=== PATIENT | female | born 1950 | race Caucasian/White ===

== ENCOUNTER 2016-12-10 19:55 | Inpatient (IN) | payer MEDICARE, MEDICAID ==
[~2016-12-10] VITALS: Ht 152.4 cm; Wt 50.0 kg
[~2016-12-10 19:55] MED LIST: ACET325T33 PO; ASC500 PO; ASPI81TA3 PO; BISA10SU58 PR; CHOL100062 PO; CRAN450T7 PO; DEXL60CA2 PO; DOCU-144 PO; DONE10TA7 PO; LEVE500S9 PO; MAGN400O4 PO; RTPRO HHN
[2016-12-10 20:00] VITALS: Ht 152.4 cm; Wt 50.0 kg
[2016-12-10] MEDS ORDERED: KETOROLAC 15 MG INJ IV STA (20:16)
[2016-12-10] MEDS ORDERED: LEVO200T45 PO (20:26)
[2016-12-10] MEDS ORDERED: LEVE750T70 PO (20:27)
[2016-12-10 20:38] LABS: BASOPHILS % 0.6 % (0.0-2.0); EOSINOPHILS # 0.5 10^3/ul (0.0-0.5); EOSINOPHILS % 6.3 % (0.0-7.0); HEMOGLOBIN 13.9 g/dl (12.0-16.0); LYMPHOCYTES # 2.2 10^3/ul (0.8-2.9); MEAN CORPUSCULAR HEMOGLOBIN 29.8 pg (29.0-33.0); MEAN CORPUSCULAR HGB CONC 33.1 g/dl (32.0-37.0); MEAN CORPUSCULAR VOLUME 89.9 fl (82.0-101.0); MEAN PLATELET VOLUME 7.6 fl (7.4-10.4); MONOCYTE # 0.5 10^3/ul (0.3-0.9); MONOCYTES % 6.4 % (0.0-11.0); NEUTROPHIL # 4.1 10^3/ul (1.6-7.5); NEUTROPHILS % 56.7 % (39.0-77.0); PLATELET COUNT 304 10^3/UL (140-440); RED BLOOD COUNT 4.67 10^6/ul (4.20-5.40); UNCORRECTED WBC 7.2 10^3/ul (4.8-10.8); WHITE BLOOD COUNT 7.2 10^3/ul (4.8-10.8)
[2016-12-10 20:40] LABS: ADD UMIC YES; URINE BILIRUBIN (Dip) NEGATIVE (NEGATIVE); URINE BLOOD (Dip) 1+ (NEGATIVE); URINE COLOR LT. YELLOW (YELLOW); URINE GLUCOSE (Dip) NEGATIVE (NEGATIVE); URINE KETONES (Dip) NEGATIVE (NEGATIVE); URINE LEUKOCYTE ESTERASE (Dip) 2+ (NEGATIVE); URINE NITRITE (Dip) NEGATIVE (NEGATIVE); URINE UROBILINOGEN (Dip) 0.2 E.U./dL (0.1-1.0)
[2016-12-10 20:42] LABS: URINE TOTAL PROTEIN (Dip) NEGATIVE (NEGATIVE)
[2016-12-10 20:44] LABS: CONDITION 1; LH ANALYZER COMMENTS 1
[2016-12-10 20:52] LABS: BACTERIA,URINE MANY; MUCUS,URINE FEW; SQUAMOUS EPITHELIAL CELL,UR MANY
[2016-12-10 20:54] LABS: ALBUMIN 4.4 g/dl (3.3-4.9)
[2016-12-10 20:55] LABS: POTASSIUM 4.6 mmol/L (3.5-5.1)
[2016-12-10 20:57] LABS: ALBUMIN/GLOBULIN RATIO 0.91; BILIRUBIN,INDIRECT 0.1 mg/dl (0-1.1); BILIRUBIN,TOTAL 0.1 mg/dl (0.2-1.3); CREATININE 2.37 mg/dl (0.44-1.00); TOTAL PROTEIN 9.2 g/dl (6.1-8.1)
[2016-12-10 20:58] LABS: CALCIUM 9.6 mg/dl (8.4-10.2)
--- NOTE | 2016-12-10 21:45 | RADRPT ---
PROCEDURE: CT Abdomen and Pelvis without contrast. CLINICAL INDICATION: Left lower quadrant abdominal pain, history of pancreatitis, gastroesophagea l reflux disease, appendectomy 20 years ago TECHNIQUE: CT scan of the abdomen and pelvis without contrast was performed on a multidetector hig h-resolution CT scanner. The patient was scanned without intravenous contrast. No oral contrast was administered. Coronal and sagittal reformatted images were obtained from the axial source images. Im ages were reviewed on a high-resolution PACS workstation. The total exam CTDI equals 7.72 mGy and t he total exam DLP equals 361.98 mGy-cm. One or more of the following dose reduction techniques were used: - Automated exposure control. - Adjustment of the mA and/or kV according to patient size. - Use of iterative reconstruction technique. COMPARISON: 07/11/2016 FINDINGS: Lungs: Mild dependent atelectasis is seen in the posterior lower lungs. Linear atelectasis/fibrosis is seen at the lung bases. Small pericardial effusion decreased compared to previous study. Mild c entrilobular emphysematous changes at lung bases. Multiple bilateral small nodular densities at maxx g bases approximately 4 appearing in the left lower lobe since previous study which could be inflamm atory the largest 3 mm with an approximate 3 mm nodular density in the right lower lung lobe stable compared to previous study. There is likely a mucous in mild cylindrical bronchiectasis in the righ t lower lobe medially again seen. Calcification in thoracic aorta Liver: No abnormality seen. Gallbladder: No gallbladder seen. Spleen: No abnormality seen. Stomach: Food material/debris, fluid and air in the stomach. Old gastrostomy tube tract again seen i n the anterior abdominal wall. Pancreas: No abnormality seen. Adrenals: No abnormality seen. Kidneys: Bilateral renal atrophy again seen. Bilateral nonobstructing renal calculi again seen the largest 5 mm in the mid to lower right kidney. Abdominal aorta: No aneurysm seen. Atherosclerotic calcification is seen. Calcification in proxima l right renal artery and bilateral iliac arteries. Lymph nodes: No enlarged lymph nodes are seen. Small bowel: No dilated small bowel loops are seen. Colon: Scattered colonic diverticula. There is no specific evidence of acute diverticulitis seen. Appendix: Status post appendectomy. Bladder: No abnormality seen Pelvic organs: No abnormality seen Ascites: None seen. Osseous structures: Lumbar spondylosis. Degenerative changes at sacroiliac joints and mild degener ative changes at hips. Levoscoliosis of lumbar spine. Small scattered likely bone islands again seen IMPRESSION: Multiple bilateral small nodular densities at lung bases approximately 4 appearing in the left lower lobe since previous study which could be inflammatory the largest 3 mm with an approximate 3 mm nod ular density in the right lower lung lobe stable compared to previous study. There is likely mucous in mild cylindrical bronchiectasis in the right lower lobe medially again seen. Bilateral renal atr ophy again seen. Bilateral nonobstructing renal calculi again seen the largest 5 mm in the mid to l ower right kidney. Atherosclerosis. Please see above. RPTAT: HJES .Shayne Ly MD, MD Date Time Electronically viewed and signed by .Shayne Ly MD, on 12/10/2016 21:45 .S/
[2016-12-10] MEDS ORDERED: CEFTRIAXONE 1 GM/50 ML (PMX) 50 ML IVPB ONE (22:00)
--- NOTE | 2016-12-10 22:00 | ERD ---
ER Documentation Chief Complaint Date/Time DATE: 12/10/16 TIME: 22:00 Chief Complaint LLQ AP SINCE 183 DENIES N/V DR. GALLO SENT FOR FURTHER EVAL HPI This is a 66-year-old female presents to the emergency room for evaluation of abdominal pain. This patient was sent in by her primary care physician, Dr. Mcginnis for further evaluation. This patient denies any fevers, she states that she is having pain and localizes to the left portion of her abdomen. The patient came to the ER today for evaluation. ROS All systems reviewed and are negative except as per history of present illness. Medications Home Meds Reported Medications Levetiracetam* (Keppra*) 750 Mg Tablet, 750 MG PO BID, TAB 12/10/16 Levothyroxine Sodium* (Levoxyl*) 200 Mcg Tablet, 300 MCG PO BEFORE BREAKFAST, # 30 TAB 12/10/16 Acetaminophen* (Tylenol*) 325 Mg Tablet, 650 MG PO Q4H Y for FOR MILD PAIN -, TAB 07/11/16 Acetaminophen* (Tylenol*) 325 Mg Tablet, 650 MG PO Q4H, TAB FOR TEMP>101F 07/11/16 Cholecalciferol* (Vitamin D3*) 1,000 Unit Tablet, 3000 UNIT PO DAILY, TAB 07/11/16 Ascorbic Acid (Vitamin C) 500 Mg Tab, 500 MG PO BID, TAB 07/11/16 Cranberry Fruit (CRANBERRY) 450 Mg Tablet, 900 MG PO DAILY, TAB 07/11/16 Bisacodyl* (Dulcolax*) 10 Mg/Supp.rect Supp.rect, [address] Q24H Y for CONSTIPATION, SUPP.RECT 04/28/16 Magnesium Hydroxide* (Milk Of Magnesia*) 400 Mg/5 Ml Oral.susp, 30 ML PO Q24H Y for CONSTIPATION, ML 04/28/16 Dexlansoprazole (Dexilant) 60 Mg Vasquez., 60 MG PO AC BREAKFAST, #30 CAP 04/28/16 Donepezil* (Donepezil*) 10 Mg Tablet, 10 MG PO DAILY, #30 TAB 04/28/16 Docusate Sodium* (Colace*) 100 Mg Capsule, 100 MG PO BID Y for CONSTIPATION, # 60 CAP 04/28/16 Aspirin* (Aspirin* Chew) 81 Mg Tab.chew, 81 MG PO DAILY, TAB.CHEW 04/28/16 Discontinued Reported Medications Levetiracetam* (Keppra*) 500 Mg/5 Ml Solution, 750 MG PO BID, BOTTLE 04/28/16 Albuterol Sulfate* (Proventil* Neb) 0.083% Neb, 2.5 MG HHN Q4H WHILE AWAKE Y for WHEEZING AND SOB, EA 10/22/15 Allergies Allergies: Coded Allergies: peanut (Verified Allergy, Unknown, 12/10/16) PMhx/Soc History of Surgery: Yes (cholecystectomy, lithotripsy, jj stent placement) Anesthesia Reaction: No Hx Neurological Disorder: Yes (Seizure, CVA) Hx Respiratory Disorders: No Hx Cardiac Disorders: No Hx Psychiatric Problems: Yes (Dementia) Hx Miscellaneous Medical Probl: Yes (seizure, pancreatitis, gerd, uti, pyelonephritis, dementia, anemia) Hx Alcohol Use: No Hx Substance Use: No Hx Tobacco Use: No Physical Exam Vitals Vital Signs Date Time Temp Pulse Resp B/P Pulse Ox O2 Delivery O2 Flow Rate FiO2 12/10/16 22:15 98.0 80 16 128/91 100 Room Air 12/10/16 20:00 98.1 66 18 129/59 98 Physical Exam INITIAL VITAL SIGNS: Reviewed by me GENERAL: The patient is well developed and appropriate for usual state of health in no apparent distress HEENT: Pupils equal, round, and reactive to light. EOMI. There is no scleral icterus. NECK: C-spine is soft and supple, there is no meningismus. There is no cervical lymphadenopathy. LUNGS: Clear to auscultation bilaterally. There are no rales, wheezes or rhonchi. HEART: Regular rate and rhythm, no murmurs, clicks, rubs or gallops. ABDOMEN: Suprapubic tenderness to palpation non-distended. There are bowel sounds in all four quadrants. No rebound or guarding. EXTREMITIES: There is no peripheral cyanosis or edema. No focal swelling or erythema. NEUROLOGICAL: The patient moves all four extremities with 5/5 strength. Cranial nerves II - XII are intact. Normal gait. Alert and oriented SKIN: There is no apparent rash or petechiae. HEME/LYMPHATIC: There is no evidence of excessive bruising or lymphedema. PSYCHIATRIC: The patient does not appear anxious or depressed. Result Diagram: 12/10/16201412/10/162014 Results 24 hrs Laboratory Tests Test 12/10/16 20:15 Alanine Aminotransferase (ALT/SGPT) 43IU/L Albumin 4.4g/dl Albumin/Globulin Ratio 0.91 Alkaline Phosphatase 139IU/L Anion Gap 20 Aspartate Amino Transf (AST/SGOT) 44IU/L Basophils # 0.010^3/ul Basophils % 0.6% Blood Morphology Comment Blood Urea Nitrogen 51mg/dl Calcium Level 9.6mg/dl Carbon Dioxide Level 25mmol/L Chloride Level 105mmol/L Creatinine 2.37mg/dl Direct Bilirubin 0.00mg/dl Eosinophils # 0.510^3/ul Eosinophils % 6.3% Globulin 4.80g/dl Glucose Level 77mg/dl Hematocrit 42.0% Hemoglobin 13.9g/dl Indirect Bilirubin 0.1mg/dl Lipase 236U/L Lymphocytes # 2.210^3/ul Lymphocytes % 30.0% Mean Corpuscular Hemoglobin 29.8pg Mean Corpuscular Hemoglobin Concent 33.1g/dl Mean Corpuscular Volume 89.9fl Mean Platelet Volume 7.6fl Monocytes # 0.510^3/ul Monocytes % 6.4% Neutrophils # 4.110^3/ul Neutrophils % 56.7% Nucleated Red Blood Cells # 0.010^3/ul Nucleated Red Blood Cells % 0.0/100WBC Platelet Count 65601^3/UL Potassium Level 4.6mmol/L Red Blood Count 4.6710^6/ul Red Cell Distribution Width 15.0% Sodium Level 145mmol/L Total Bilirubin 0.1mg/dl Total Protein 9.2g/dl Urine Bacteria MANY Urine Bilirubin NEGATIVE Urine Clarity CLEAR Urine Color LT. YELLOW Urine Glucose NEGATIVE% Urine Hemoglobin 1+ Urine Ketones NEGATIVE Urine Leukocyte Esterase 2+ Urine Microscopic RBC 5-10/HPF Urine Microscopic WBC >50/HPF Urine Mucus FEW Urine Nitrite NEGATIVE Urine Specific [place] 1.015 Urine Squamous Epithelial Cells MANY Urine Total Protein NEGATIVE Urine Urobilinogen 0.2 E.U./dL Urine pH 6.0 White Blood Count 7.210^3/ul Current Medications Medications (Trade) Dose Ordered Sig/[place] Route PRN Reason Start Time Stop Time Status Last Admin Dose Admin Ketorolac Tromethamine 15 mg 15 mg ONCE STAT IV 12/10/16 20:16 12/10/16 20:17 DC 12/10/16 20:45 Ceftriaxone Sodium (Rocephin) 50 ml @ 100 mls/hr ONCE ONCE IVPB 12/10/16 22:00 12/10/16 22:29 12/10/16 22:07 Procedures/MDM CT abdomen pelvis without: Multiple bilateral small nodular densities at lung bases approximately 4 appearing in the left lower lobe since previous study which could be inflammatory the largest 3 mm with an approximate 3 mm nodular density in the right lower lung lobe stable compared to previous study. There is likely mucous in mild cylindrical bronchiectasis in the right lower lobe medially again seen. Bilateral renal atrophy again seen. Bilateral nonobstructing renal calculi again seen the largest 5 mm in the mid to lower right kidney. Atherosclerosis. This 66-year-old female presents to the ER for evaluation of abdominal pain. She did have suprapubic tenderness to palpation on my examination, lab work was obtained including a urine and a CAT scan. Urinalysis does show urinary tract infection, CAT scan does not show any other acute intra-abdominal process. I spoke with this patient's primary care physician, Dr. Mcginnis who states that this patient should be admitted overnight for IV antibiotics and no further monitoring with a repeat lab work and urine in the morning. This patient is stable for MedSur at this time. This patient does have an elevated BUN compared to normal and could be suffering from mild dehydration. Patient was given IV normal saline Departure Diagnosis: Primary Impression: Acute cystitis Additional Impression: Mild dehydration Condition: Stable ARABELLA HNIES DO Dec 10, 2016 22:00
[2016-12-10] MEDS ORDERED: SOD CHLORIDE 0.9% 1,000 ML IV SCH (22:20)
[2016-12-10] MEDS ORDERED: ONDANSETRON 4 MG INJ IV PRN (22:30)
[2016-12-10] MEDS ORDERED: ACETAMINOPHEN 325 MG TAB PO PRN (22:30)
[2016-12-10 22:54] VITALS: TEMP 98.6
[2016-12-10 23:11] VITALS: BMI 21.5
[2016-12-10 23:12] VITALS: BP 158/91; PULSE 52; RESP 18
[2016-12-11] MEDS ORDERED: BISACODYL 10 MG SUPP PR PRN
[2016-12-11] MEDS ORDERED: DOCUSATE SODIUM 100 MG CAP PO PRN
[2016-12-11] MEDS ORDERED: ACETAMINOPHEN 325 MG TAB PO PRN
[2016-12-11] MEDS ORDERED: ACETAMINOPHEN 325 MG TAB PO SCH
[2016-12-11] MEDS ORDERED: MAGNESIUM HYDROXIDE 30ML CUP PO PRN
[2016-12-11] MEDS ORDERED: ONDANSETRON 4 MG INJ IV PRN
[2016-12-11] MEDS: SOD CHLORIDE 0.45% 1,000 ML IV SCH ×2 (00:54→18:20)
[2016-12-11 05:47] LABS: BASOPHILS % 0.7 % (0.0-2.0); EOSINOPHILS # 0.5 10^3/ul (0.0-0.5); HEMATOCRIT 37.4 % (37.0-47.0); HEMOGLOBIN 12.5 g/dl (12.0-16.0); LYMPHOCYTES # 1.8 10^3/ul (0.8-2.9); LYMPHOCYTES % 31.7 % (15.0-51.0); MEAN CORPUSCULAR HEMOGLOBIN 30.3 pg (29.0-33.0); MEAN CORPUSCULAR HGB CONC 33.4 g/dl (32.0-37.0); MEAN CORPUSCULAR VOLUME 90.7 fl (82.0-101.0); MEAN PLATELET VOLUME 7.9 fl (7.4-10.4); MONOCYTE # 0.5 10^3/ul (0.3-0.9); MONOCYTES % 8.1 % (0.0-11.0); NEUTROPHILS % 51.5 % (39.0-77.0); PLATELET COUNT 268 10^3/UL (140-440); RED BLOOD COUNT 4.13 10^6/ul (4.20-5.40); RED CELL DISTRIBUTION WIDTH 14.9 % (11.5-14.5); UNCORRECTED WBC 5.8 10^3/ul (4.8-10.8); WHITE BLOOD COUNT 5.8 10^3/ul (4.8-10.8)
[2016-12-11 05:56] LABS: POTASSIUM 4.9 mmol/L (3.5-5.1)
[2016-12-11 05:58] LABS: CREATININE 2.34 mg/dl (0.44-1.00)
[2016-12-11 05:59] LABS: CALCIUM 8.9 mg/dl (8.4-10.2)
[2016-12-11 06:23] LABS: CONDITION 1; LH ANALYZER COMMENTS 1
[2016-12-11] MEDS: PANTOPRAZOLE (EC) 40 MG TAB PO SCH (06:25)
[2016-12-11] MEDS: LEVOTHYROXINE 100 MCG TAB PO SCH (06:25)
[2016-12-11 07:22] VITALS: BP 115/69; RESP 18
[2016-12-11] MEDS: IMIPENEM-CILAST 250MG IV (PMX) 100 ML IVPB SCH ×2 (08:46→20:55)
[2016-12-11] MEDS: CHOLECALCIFEROL 1,000 UNIT TAB PO SCH (08:47)
[2016-12-11] MEDS: ASPIRIN 81 MG TAB PO SCH (08:47)
[2016-12-11] MEDS: LEVETIRACETAM 750 MG TAB PO SCH ×2 (08:47→22:26)
[2016-12-11] MEDS: DONEPEZIL 10 MG TAB PO SCH (08:47)
[2016-12-11] MEDS: ASCORBIC ACID 500 MG TAB PO SCH ×2 (08:47→20:55)
[2016-12-11] MEDS: ENOXAPARIN 30 MG/0.3 ML SYG SC SCH (08:48)
[2016-12-11] MEDS ORDERED: DONEPEZIL 10 MG TAB PO SCH (09:00)
[2016-12-11] MEDS ORDERED: CRANBERRY FRUIT 900 MG PO SCH (09:00)
--- NOTE | 2016-12-11 13:58 | HP ---
DATE OF ADMISSION: 12/10/2016 HISTORY OF PRESENT ILLNESS: The patient is a 66-year-old female known to me from previous admission . The patient with history of cerebrovascular accident, seizure disorder, and history of right reg l calculi, chronic kidney disease, and memory impairment. The patient also with history of G-tube a nd removal of G-tube. The patient was able to tolerate diet well and was recuperating at [facility]. The patient presented to the emergency room for evaluation of abdominal pain in the left lower quadrant that she developed a day ago. On evaluation in the emergency room, a urinalysi s was positive for leukocyte esterase and many bacteria. The patient also underwent a CT of abdomen and pelvis which revealed bilateral renal atrophy and bilateral nonobstructing renal calculi, and t he largest 5 mm in the mid to lower right kidney. The patient was also noted to have elevated BUN a nd creatinine, and the patient was admitted for IV fluids and antibiotics and further management to medical/surgical floor. PAST MEDICAL HISTORY: Per HPI. PAST SURGICAL HISTORY: Status post cholecystectomy, status post lithotripsy and JJ stent placement and subsequent removal of JJ stent, status post G-tube placement and subsequent removal. FAMILY HISTORY: Noncontributory. SOCIAL HISTORY: The patient is a resident of [facility]. 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 ALLERGIES: THE PATIENT IS ALLERGIC TO PEANUTS. MEDICATIONS ON ADMISSION: 1. Tylenol. 2. Vitamin C. 3. Aspirin. 4. Dulcolax. 5. Vitamin D3. 6. Cranberry extract. 7. Dexilant. 8. Colace. 9. Donepezil. 10. Keppra. 11. Levothyroxine. 12. Magnesium. REVIEW OF SYSTEMS: A 12-point review of systems is negative unless what is mentioned in the HPI. PHYSICAL ASSESSMENT: GENERAL: Well-developed, well-nourished female currently is awake, alert. VITAL SIGNS: Temperature is 97.9, pulse is 60, blood pressure 115/69, respiratory rate 18, oxygen s aturation is 98% on room air. HEENT: Head is atraumatic, normocephalic. Pupils equal, round, reactive to light and accommodation . Oral mucosa is pink and moist. NECK: Supple. No cervical lymphadenopathy, no thyromegaly. CHEST: Lungs clear bilaterally. There is no rhonchi, wheezes, or rales noted. CARDIOVASCULAR: Normal S1, S2. No murmurs, gallops, clicks, rubs noted. ABDOMEN: Round, soft, nondistended, nontender. The patient has left lower quadrant mild tenderness . EXTREMITIES: No edema, clubbing, cyanosis. Pulses equal bilaterally 2+. SKIN: There is no rash, petechiae noted. NEUROLOGIC: The patient is awake, alert and oriented to name and situation. Moves all extremities. No focal deficits noted. LABORATORY DATA: On admission, CBC: White blood cell 7.2, hemoglobin 13.9, hematocrit 42.0, platel ets 304. Chemistry: Sodium is 145, potassium 4.6, chloride 105, carbon dioxide 25, anion gap 20, B UN is 51, creatinine 2.37, glucose 77, calcium 9.6. ASSESSMENT AND PLAN: 1. Urinary tract infection per urinalysis. Will order urine culture. Continue patient on Primaxin . 2. Dehydration. Continue IV fluids. Monitor electrolytes. 3. Acute kidney injury secondary to dehydration on top of chronic kidney disease. Continue to rosario tor BUN and creatinine. 4. Dementia. Continue Aricept. 5. Hypothyroidism. We will check TSH. Continue Synthroid. 6. History of seizure disorder. Continue Keppra. 7. History of cerebrovascular accident. Continue patient on aspirin. Will continue Lovenox for de ep venous thrombosis prophylaxis and Protonix for peptic ulcer disease prophylaxis. Further recommendations based on clinical course. Plan of care discussed with Dr. Mcginnis. Dictated By: NEFTALI KEN FINGER WAVER for HEIKE MCGINNIS MD SR/NTS Conf#: [id number] DID#: [id number]
[2016-12-11 20:00] VITALS: BP 119/69; RESP 20
[2016-12-12 05:54] LABS: BASOPHIL # 0.1 10^3/ul (0.0-0.1); BASOPHILS % 0.9 % (0.0-2.0); EOSINOPHILS # 0.4 10^3/ul (0.0-0.5); EOSINOPHILS % 6.2 % (0.0-7.0); HEMATOCRIT 34.8 % (37.0-47.0); HEMOGLOBIN 11.6 g/dl (12.0-16.0); LYMPHOCYTES # 1.5 10^3/ul (0.8-2.9); LYMPHOCYTES % 23.8 % (15.0-51.0); MEAN CORPUSCULAR HEMOGLOBIN 30.1 pg (29.0-33.0); MEAN CORPUSCULAR HGB CONC 33.4 g/dl (32.0-37.0); MEAN CORPUSCULAR VOLUME 90.2 fl (82.0-101.0); MEAN PLATELET VOLUME 7.8 fl (7.4-10.4); MONOCYTE # 0.5 10^3/ul (0.3-0.9); MONOCYTES % 7.5 % (0.0-11.0); NEUTROPHIL # 3.8 10^3/ul (1.6-7.5); NEUTROPHILS % 61.6 % (39.0-77.0); PLATELET COUNT 267 10^3/UL (140-440); RED BLOOD COUNT 3.85 10^6/ul (4.20-5.40); RED CELL DISTRIBUTION WIDTH 14.9 % (11.5-14.5); UNCORRECTED WBC 6.2 10^3/ul (4.8-10.8); WHITE BLOOD COUNT 6.2 10^3/ul (4.8-10.8)
[2016-12-12 05:57] LABS: CONDITION 1; LH ANALYZER COMMENTS 1
[2016-12-12 06:06] LABS: POTASSIUM 4.6 mmol/L (3.5-5.1)
[2016-12-12 06:08] LABS: CREATININE 2.3 mg/dl (0.44-1.00)
[2016-12-12 06:09] LABS: CALCIUM 8.2 mg/dl (8.4-10.2)
[2016-12-12] MEDS: LEVOTHYROXINE 100 MCG TAB PO SCH (06:18)
[2016-12-12] MEDS: PANTOPRAZOLE (EC) 40 MG TAB PO SCH (06:18)
[2016-12-12 07:45] VITALS: BP 97/58; RESP 18
[2016-12-12] MEDS: DONEPEZIL 10 MG TAB PO SCH (08:35)
[2016-12-12] MEDS: IMIPENEM-CILAST 250MG IV (PMX) 100 ML IVPB SCH ×2 (08:35→20:45)
[2016-12-12] MEDS: CHOLECALCIFEROL 1,000 UNIT TAB PO SCH (08:35)
[2016-12-12] MEDS: ASPIRIN 81 MG TAB PO SCH (08:36)
[2016-12-12] MEDS: ASCORBIC ACID 500 MG TAB PO SCH ×2 (08:36→20:46)
[2016-12-12] MEDS: LEVETIRACETAM 750 MG TAB PO SCH ×2 (08:36→20:46)
[2016-12-12] MEDS: ENOXAPARIN 30 MG/0.3 ML SYG SC SCH (08:43)
[2016-12-12] MEDS: SOD CHLORIDE 0.45% 1,000 ML IV SCH (12:12)
--- NOTE | 2016-12-12 13:22 | PN ---
Date/Time of Note Date/Time of Note DATE: 12/12/16 TIME: 13:18 Assessment/Plan VTE Prophylaxis VTE Prophylaxis Intervention: SCD's Lines/Catheters IV [facility] Peripheral IV Urinary Cath still in place: No Assessment/Plan Chief Complaint/Hosp Course ASSESSMENT AND PLAN: 1. Urinary tract infection per urinalysis. F/up on urine culture. Continue patient on Primaxin. 2. Dehydration. Continue IV fluids. Monitor electrolytes. 3. Acute kidney injury secondary to dehydration on top of chronic kidney disease. Continue to monitor BUN and creatinine. Dr Marcum in nephrology consult. 4. Dementia. Continue Aricept. 5. Hypothyroidism. Continue Synthroid. 6. History of seizure disorder. Continue Keppra. 7. History of cerebrovascular accident. Continue patient on aspirin. Continue Lovenox for deep venous thrombosis prophylaxis and Protonix for peptic ulcer disease prophylaxis. Further recommendations based on clinical course. Plan of care discussed with Dr. Mcginnis. Problems: Subjective 24 Hr Interval Summary Free Text/Dictation Patient looks comfortable, no acute events. Exam/Review of Systems Vital Signs Vitals Vital Signs Date Time Temp Pulse Resp B/P Pulse Ox O2 Delivery O2 Flow Rate FiO2 12/12/16 07:45 97.7 74 18 97/58 95 12/10/16 23:12 Room Air Intake and Output 12/11/16 12/11/16 12/12/16 15:00 23:00 07:00 Intake Total 100 ml 1900 ml 850 ml Output Total 600 ml 500 ml Balance 100 ml 1300 ml 350 ml Exam GENERAL: Well-developed, well-nourished female currently is awake, alert. HEENT: Head is atraumatic, normocephalic. NECK: Supple. No cervical lymphadenopathy, no thyromegaly. CHEST: Lungs clear bilaterally. There is no rhonchi, wheezes, or rales noted. CARDIOVASCULAR: Normal S1, S2. No murmurs, gallops, clicks, rubs noted. ABDOMEN: Round, soft, nondistended, nontender. EXTREMITIES: No edema, clubbing, cyanosis. Pulses equal bilaterally 2+. SKIN: There is no rash, petechiae noted. NEUROLOGIC: The patient is awake, alert and oriented to name and situation. Results Result Diagram: 12/12/1651712/12/16517 Results 24 hrs Laboratory Tests Test 12/12/16 05:18 Anion Gap 17 H Basophils # 0.1 Basophils % 0.9 Blood Morphology Comment Blood Urea Nitrogen 45 H Calcium Level 8.2 L Carbon Dioxide Level 20 L Chloride Level 110 Creatinine 2.30 H Eosinophils # 0.4 Eosinophils % 6.2 Glucose Level 83 Hematocrit 34.8 L Hemoglobin 11.6 L Lymphocytes # 1.5 Lymphocytes % 23.8 Mean Corpuscular Hemoglobin 30.1 Mean Corpuscular Hemoglobin Concent 33.4 Mean Corpuscular Volume 90.2 Mean Platelet Volume 7.8 Monocytes # 0.5 Monocytes % 7.5 Neutrophils # 3.8 Neutrophils % 61.6 Nucleated Red Blood Cells # 0.0 Nucleated Red Blood Cells % 0.0 Platelet Count 267 Potassium Level 4.6 Red Blood Count 3.85 L Red Cell Distribution Width 14.9 H Sodium Level 142 White Blood Count 6.2 Medications Medications Current Medications Sodium Chloride (1/2 NS) 1,000 ml @ 60 mls/hr [id number] IV Last administered on 12/12/16 12:12; Admin Dose 60 MLS/HR; Start 12/11/16 at 00:00 Miscellaneous Information (* Miscellaneous Pharmacy Order) PRIMAXIN PER PHARMACY ONCE XX ; Start 12/11/16 at 00:00 Enoxaparin Sodium (Lovenox) 30 mg DAILY SC Last administered on 12/12/16 08:43 ; Admin Dose 30 MG; Start 12/11/16 at 09:00 Morphine Sulfate (morphine) 2 mg Q2H PRN IV PAIN; Start 12/11/16 at 00:00 Ondansetron HCl (Zofran Inj) 4 mg Q6H PRN IV NAUSEA AND/OR VOMITING; Start 09/17 at 00:00 Acetaminophen (Tylenol Tab) 650 mg Q4H PRN PO FOR MILD PAIN -03/11; Start 12/11 at 00:00 Ascorbic Acid (Vitamin C) 500 mg BID PO Last administered on 12/12/16 08:36; Admin Dose 500 MG; Start 12/11/16 at 09:00 Aspirin (Aspirin) 81 mg DAILY PO Last administered on 12/12/16 08:36; Admin Dose 81 MG; Start 12/11/16 at 09:00 Bisacodyl (Dulcolax Supp) 10 mg Q24H PRN [place] CONSTIPATION; Start 12/11/16 at 00: 00 Cholecalciferol (Vitamin D) 3,000 unit DAILY PO Last administered on 12/12/16 08:35; Admin Dose 3,000 UNIT; Start 12/11/16 at 09:00 Docusate Sodium (Colace) 100 mg BID PRN PO CONSTIPATION; Start 12/11/16 at 00: 00 Levetiracetam (Keppra) 750 mg BID PO Last administered on 12/12/16 08:36; Admin Dose 750 MG; Start 12/11/16 at 09:00 Magnesium Hydroxide (Milk Of Mag) 30 ml Q24H PRN PO CONSTIPATION; Start at 00:00 Pantoprazole 40 mg 40 mg DAILY@06 PO Last administered on 12/12/16 06:18; Admin Dose 40 MG; Start 12/11/16 at 06:00 Imipenem/ Cilastatin Sodium (Primaxin 250 Mg/ 100 ml (Pmx)) 100 ml @ 100 mls/ hr Q12 IVPB Last administered on 12/12/16 08:35; Admin Dose 100 MLS/HR; Start 12/11/16 at 09:00 Donepezil HCl (Aricept) 10 mg DAILY PO Last administered on 12/12/16 08:35; Admin Dose 10 MG; Start 12/11/16 at 09:00 NEFTALI KEN Dec 12, 2016 13:21
--- NOTE | 2016-12-12 17:36 | CONS ---
Date/Time of Note Date/Time of Note DATE: 12/12/16 TIME: 17:34 Assessment/Plan Assessment/Plan Additional Assessment/Plan 66 yo female with 1. Recurrent Urinary tract infection 2. Dehydration 3. Acute kidney injury 2nd to above, baseline CKD stage IV 4. Dementia. 5. Hypothyroidism. 6. History of seizure disorder. 7. History of cerebrovascular accident. 8. B/L Non obstructing Renal Calculi Overall since admission renal function is stable and mildly improved with IVFs Pt is non oliguric and electolytes are ok Cont gentle IVFs as needed. Cont IV Abx, awaiting urine culture Renal dose to CKD stage IV, eGFR<30 Avoid nephrotoxic Rx if possible Keep MAPs>65mmHg Will cont to follow UO, electrolytes and renal function daily. Thank you for the opportunity to participate in the care of Ms Nation. Consultation Date/Type/Reason Admit Date/Time Dec 10, 2016 at 22:20 Date of Consultation: Dec 12, 2016 Type of Consultation: Nephrology Reason for Consultation Martha, CKD Referring Provider: NEFTALI KEN Hx of Present Illness 66 year old female with history of cerebrovascular accident, seizure disorder, and history of right renal calculi, chronic kidney disease, and memory impairment who presented to the emergency room for evaluation of abdominal pain in the left lower quadrant that she developed a day ago. In the ER found to have abnormal UA, possible UTI and CT of abdomen and pelvis which showed bilateral renal atrophy and bilateral nonobstructing renal calculi, and the largest 5 mm in the mid to lower right kidney. The patient was also noted to have elevated BUN and creatinine from baseline and admitted to [facility]. Nephrology consulted for MARTHA on CKD. unable to obtain due to patient condition Constitutional: No requiring O2 Past Medical History Medical History: other (as per HPI) Past Surgical History PAST SURGICAL HISTORY: Status post cholecystectomy, status post lithotripsy and JJ stent placement and subsequent removal of JJ stent, status post G-tube placement and subsequent removal. Family History Significant Family History: no pertinent family hx Social History resides in [facility] Alcohol Use: none Smoking Status: Current some day smoker Drug Use: none Exam/Review of Systems Vital Signs Vitals Vital Signs Date Time Temp Pulse Resp B/P Pulse Ox O2 Delivery O2 Flow Rate FiO2 12/12/16 07:45 97.7 74 18 97/58 95 12/10/16 23:12 Room Air Intake and Output 12/11/16 12/11/16 12/12/16 15:00 23:00 07:00 Intake Total 100 ml 1900 ml 850 ml Output Total 600 ml 500 ml Balance 100 ml 1300 ml 350 ml Exam Constitutional: alert, No distress Psych: No anxiety Head: atraumatic Eyes: EOMI ENMT: mucosa pink and moist Neck: No jvd Respiratory: clear to auscultation, No labored breathing Cardiovascular: regular rate and rhythm, No edema Neurological: lethargic Skin: No diaphoresis Results Result Diagram: 12/12/16 0518 12/12/16 0518 Results 24 hrs Laboratory Tests Test 12/12/16 05:18 12/12/16 15:00 Anion Gap 17 H Basophils # 0.1 Basophils % 0.9 Blood Morphology Comment Blood Urea Nitrogen 45 H Calcium Level 8.2 L Carbon Dioxide Level 20 L Chloride Level 110 Creatinine 2.30 H Eosinophils # 0.4 Eosinophils % 6.2 Glucose Level 83 Hematocrit 34.8 L Hemoglobin 11.6 L Lymphocytes # 1.5 Lymphocytes % 23.8 Mean Corpuscular Hemoglobin 30.1 Mean Corpuscular Hemoglobin Concent 33.4 Mean Corpuscular Volume 90.2 Mean Platelet Volume 7.8 Monocytes # 0.5 Monocytes % 7.5 Neutrophils # 3.8 Neutrophils % 61.6 Nucleated Red Blood Cells # 0.0 Nucleated Red Blood Cells % 0.0 Platelet Count 267 Potassium Level 4.6 Red Blood Count 3.85 L Red Cell Distribution Width 14.9 H Sodium Level 142 White Blood Count 6.2 Urine Random Creatinine 31.30 Urine Random Sodium 98 H Medications Medications Current Medications Sodium Chloride (1/2 NS) 1,000 ml @ 60 mls/hr [id number] IV Last administered on 12/12/16 12:12; Admin Dose 60 MLS/HR; Start 12/11/16 at 00:00 Miscellaneous Information (* Miscellaneous Pharmacy Order) PRIMAXIN PER PHARMACY ONCE XX ; Start 12/11/16 at 00:00 Enoxaparin Sodium (Lovenox) 30 mg DAILY SC Last administered on 12/12/16 08:43 ; Admin Dose 30 MG; Start 12/11/16 at 09:00 Morphine Sulfate (morphine) 2 mg Q2H PRN IV PAIN; Start 12/11/16 at 00:00 Ondansetron HCl (Zofran Inj) 4 mg Q6H PRN IV NAUSEA AND/OR VOMITING; Start 09/17 at 00:00 Acetaminophen (Tylenol Tab) 650 mg Q4H PRN PO FOR MILD PAIN -03/11; Start 12/11 at 00:00 Ascorbic Acid (Vitamin C) 500 mg BID PO Last administered on 12/12/16 08:36; Admin Dose 500 MG; Start 12/11/16 at 09:00 Aspirin (Aspirin) 81 mg DAILY PO Last administered on 12/12/16 08:36; Admin Dose 81 MG; Start 12/11/16 at 09:00 Bisacodyl (Dulcolax Supp) 10 mg Q24H PRN [place] CONSTIPATION; Start 12/11/16 at 00: 00 Cholecalciferol (Vitamin D) 3,000 unit DAILY PO Last administered on 12/12/16 08:35; Admin Dose 3,000 UNIT; Start 12/11/16 at 09:00 Docusate Sodium (Colace) 100 mg BID PRN PO CONSTIPATION; Start 12/11/16 at 00: 00 Levetiracetam (Keppra) 750 mg BID PO Last administered on 12/12/16 08:36; Admin Dose 750 MG; Start 12/11/16 at 09:00 Magnesium Hydroxide (Milk Of Mag) 30 ml Q24H PRN PO CONSTIPATION; Start at 00:00 Pantoprazole 40 mg 40 mg DAILY@06 PO Last administered on 12/12/16 06:18; Admin Dose 40 MG; Start 12/11/16 at 06:00 Imipenem/ Cilastatin Sodium (Primaxin 250 Mg/ 100 ml (Pmx)) 100 ml @ 100 mls/ hr Q12 IVPB Last administered on 12/12/16 08:35; Admin Dose 100 MLS/HR; Start 12/11/16 at 09:00 Donepezil HCl (Aricept) 10 mg DAILY PO Last administered on 12/12/16 08:35; Admin Dose 10 MG; Start 12/11/16 at 09:[address] Abdomen IMPRESSION: Multiple bilateral small nodular densities at lung bases approximately 4 appearing in the left lower lobe since previous study which could be inflammatory the largest 3 mm with an approximate 3 mm nodular density in the right lower lung lobe stable compared to previous study. There is likely mucous in mild cylindrical bronchiectasis in the right lower lobe medially again seen. Bilateral renal atrophy again seen. Bilateral nonobstructing renal calculi again seen the largest 5 mm in the mid to lower right kidney. Atherosclerosis. Please see above. RPTAT: HJES .Shayne Ly MD, MD Date Time Electronically viewed and signed by .Shayne Ly MD, MD on 12/10/2016 21:45 NANI COLEMAN MD Dec 12, 2016 17:36
[2016-12-13] MEDS: SOD CHLORIDE 0.45% 1,000 ML IV SCH ×3 (02:00→18:40)
[2016-12-13] MEDS: PANTOPRAZOLE (EC) 40 MG TAB PO SCH (06:15)
[2016-12-13 06:58] LABS: POTASSIUM 4.7 mmol/L (3.5-5.1)
[2016-12-13 07:01] LABS: CREATININE 2.2 mg/dl (0.44-1.00)
[2016-12-13 07:02] LABS: CALCIUM 8.4 mg/dl (8.4-10.2)
[2016-12-13 08:05] VITALS: BP 125/69; RESP 16
[2016-12-13] MEDS: DONEPEZIL 10 MG TAB PO SCH (08:37)
[2016-12-13] MEDS: ASCORBIC ACID 500 MG TAB PO SCH ×2 (08:37→21:16)
[2016-12-13] MEDS: LEVOTHYROXINE 100 MCG TAB PO SCH (08:37)
[2016-12-13] MEDS: ASPIRIN 81 MG TAB PO SCH (08:37)
[2016-12-13] MEDS: LEVETIRACETAM 750 MG TAB PO SCH ×2 (08:37→21:16)
[2016-12-13] MEDS: IMIPENEM-CILAST 250MG IV (PMX) 100 ML IVPB SCH ×2 (08:37→21:16)
[2016-12-13] MEDS: CHOLECALCIFEROL 1,000 UNIT TAB PO SCH (08:38)
[2016-12-13] MEDS: ENOXAPARIN 30 MG/0.3 ML SYG SC SCH (08:40)
[2016-12-13 19:00] VITALS: BP 124/59; RESP 18
--- NOTE | 2016-12-13 20:59 | CONS ---
Date/Time of Note Date/Time of Note DATE: 12/13/16 TIME: 20:52 Assessment/Plan Assessment/Plan Problems: (1) Ureteral stone with hydronephrosis Status: Chronic (2) Anemia Status: Chronic (3) Anemia associated with chronic renal failure Status: Chronic (4) Pyelonephritis Status: Acute Comment: Recurrent (5) ARF (acute renal failure) Status: Acute Comment: Pre-renal component has improved (6) CKD (chronic kidney disease) Status: Chronic Comment: Basic CKD remains Consultation Date/Type/Reason Admit Date/Time Dec 10, 2016 at 22:20 Initial Consult Date 12/12/16 Type of Consultation: Nephrology Referring Provider: NEFTALI KEN 24 HR Interval Summary Constitutional: no complaints Exam/Review of Systems Vital Signs Vitals Vital Signs Date Time Temp Pulse Resp B/P Pulse Ox O2 Delivery O2 Flow Rate FiO2 12/13/16 19:00 97.4 73 18 124/59 98 12/10/16 23:12 Room Air Intake and Output 12/12/16 12/12/16 12/13/16 15:00 23:00 07:00 Intake Total 450 ml 880 ml 700 ml Output Total 500 ml Balance 450 ml 380 ml 700 ml Exam Constitutional: alert, oriented Psych: no complaints Eyes: PERRL, nl conjunctiva Neck: supple Respiratory: clear to auscultation Cardiovascular: regular rate and rhythm Gastrointestinal: soft Musculoskeletal: nl extremities to inspection Extremities: normal pulses Neurological: CLIENT EXECUTIVE II-XII intact Results Result Diagram: 12/12/16 0518 12/13/16 0535 Results 24 hrs Laboratory Tests Test 12/13/16 05:35 Anion Gap 16 Blood Urea Nitrogen 41 H Calcium Level 8.4 Carbon Dioxide Level 21 Chloride Level 112 H Creatinine 2.20 H Glucose Level 69 #L Potassium Level 4.7 Sodium Level 144 Medications Medications Current Medications Sodium Chloride (1/2 NS) 1,000 ml @ 60 mls/hr [id number] IV Last administered on 12/13/16 06:18; Admin Dose 60 MLS/HR; Start 12/11/16 at 00:00 Miscellaneous Information (* Miscellaneous Pharmacy Order) PRIMAXIN PER PHARMACY ONCE XX ; Start 12/11/16 at 00:00 Enoxaparin Sodium (Lovenox) 30 mg DAILY SC Last administered on 12/13/16 08:40 ; Admin Dose 30 MG; Start 12/11/16 at 09:00 Morphine Sulfate (morphine) 2 mg Q2H PRN IV PAIN; Start 12/11/16 at 00:00 Ondansetron HCl (Zofran Inj) 4 mg Q6H PRN IV NAUSEA AND/OR VOMITING Last administered on 12/13/16 10:22; Admin Dose 4 MG; Start 12/11/16 at 00:00 Acetaminophen (Tylenol Tab) 650 mg Q4H PRN PO FOR MILD PAIN -03/11; Start 12/11 at 00:00 Ascorbic Acid (Vitamin C) 500 mg BID PO Last administered on 12/13/16 08:37; Admin Dose 500 MG; Start 12/11/16 at 09:00 Aspirin (Aspirin) 81 mg DAILY PO Last administered on 12/13/16 08:37; Admin Dose 81 MG; Start 12/11/16 at 09:00 Bisacodyl (Dulcolax Supp) 10 mg Q24H PRN [place] CONSTIPATION; Start 12/11/16 at 00: 00 Cholecalciferol (Vitamin D) 3,000 unit DAILY PO Last administered on 12/13/16 08:38; Admin Dose 3,000 UNIT; Start 12/11/16 at 09:00 Docusate Sodium (Colace) 100 mg BID PRN PO CONSTIPATION; Start 12/11/16 at 00: 00 Levetiracetam (Keppra) 750 mg BID PO Last administered on 12/13/16 08:37; Admin Dose 750 MG; Start 12/11/16 at 09:00 Magnesium Hydroxide (Milk Of Mag) 30 ml Q24H PRN PO CONSTIPATION; Start at 00:00 Pantoprazole 40 mg 40 mg DAILY@06 PO Last administered on 12/13/16 06:15; Admin Dose 40 MG; Start 12/11/16 at 06:00 Imipenem/ Cilastatin Sodium (Primaxin 250 Mg/ 100 ml (Pmx)) 100 ml @ 100 mls/ hr Q12 IVPB Last administered on 12/13/16 08:37; Admin Dose 100 MLS/HR; Start 12/11/16 at 09:00 Donepezil HCl (Aricept) 10 mg DAILY PO Last administered on 1/12/17at 08:37; Admin Dose 10 MG; Start 12/11/16 at 09:00 LACY SAAVEDRA MD Dec 13, 2016 20:59
--- NOTE | 2016-12-13 21:30 | PN ---
Date/Time of Note Date/Time of Note DATE: 12/13/16 TIME: 21:29 Assessment/Plan VTE Prophylaxis VTE Prophylaxis Intervention: other Lines/Catheters [facility] Peripheral IV Urinary Cath still in place: No Assessment/Plan Assessment/Plan . Urinary tract infection per urinalysis. F/up on urine culture. Continue patient on Primaxin. 2. Dehydration. Continue IV fluids. Monitor electrolytes. 3. Acute kidney injury secondary to dehydration on top of chronic kidney disease. Continue to monitor BUN and creatinine. Dr Marcum in nephrology consult. 4. Dementia. Continue Aricept. 5. Hypothyroidism. Continue Synthroid. 6. History of seizure disorder. Continue Keppra. 7. History of cerebrovascular accident. Continue patient on aspirin. Continue Lovenox for deep venous thrombosis prophylaxis and Protonix for peptic ulcer disease prophylaxis. Further recommendations based on clinical course. Plan of care discussed with Dr. Mcginnis. Exam/Review of Systems Vital Signs Vitals Vital Signs Date Time Temp Pulse Resp B/P Pulse Ox O2 Delivery O2 Flow Rate FiO2 12/13/16 19:00 97.4 73 18 124/59 98 12/10/16 23:12 Room Air Intake and Output 12/12/16 12/12/16 12/13/16 15:00 23:00 07:00 Intake Total 450 ml 880 ml 700 ml Output Total 500 ml Balance 450 ml 380 ml 700 ml Exam Constitutional: alert Genitourinary - Female: CVA tenderness (left) Results Result Diagram: 12/12/16 0518 12/13/16 0535 Results 24 hrs Laboratory Tests Test 12/13/16 05:35 Anion Gap 16 Blood Urea Nitrogen 41 H Calcium Level 8.4 Carbon Dioxide Level 21 Chloride Level 112 H Creatinine 2.20 H Glucose Level 69 #L Potassium Level 4.7 Sodium Level 144 Medications Medications Current Medications Sodium Chloride (1/2 NS) 1,000 ml @ 60 mls/hr [id number] IV Last administered on 12/13/16 06:18; Admin Dose 60 MLS/HR; Start 12/11/16 at 00:00 Miscellaneous Information (* Miscellaneous Pharmacy Order) PRIMAXIN PER PHARMACY ONCE XX ; Start 12/11/16 at 00:00 Enoxaparin Sodium (Lovenox) 30 mg DAILY SC Last administered on 12/13/16 08:40 ; Admin Dose 30 MG; Start 12/11/16 at 09:00 Morphine Sulfate (morphine) 2 mg Q2H PRN IV PAIN; Start 12/11/16 at 00:00 Ondansetron HCl (Zofran Inj) 4 mg Q6H PRN IV NAUSEA AND/OR VOMITING Last administered on 12/13/16 10:22; Admin Dose 4 MG; Start 12/11/16 at 00:00 Acetaminophen (Tylenol Tab) 650 mg Q4H PRN PO FOR MILD PAIN ; Start 12/11 at 00:00 Ascorbic Acid (Vitamin C) 500 mg BID PO Last administered on 12/13/16 21:16; Admin Dose 500 MG; Start 12/11/16 at 09:00 Aspirin (Aspirin) 81 mg DAILY PO Last administered on 12/13/16 08:37; Admin Dose 81 MG; Start 12/11/16 at 09:00 Bisacodyl (Dulcolax Supp) 10 mg Q24H PRN [place] CONSTIPATION; Start 12/11/16 at 00: 00 Cholecalciferol (Vitamin D) 3,000 unit DAILY PO Last administered on 12/13/16 08:38; Admin Dose 3,000 UNIT; Start 12/11/16 at 09:00 Docusate Sodium (Colace) 100 mg BID PRN PO CONSTIPATION; Start 12/11/16 at 00: 00 Levetiracetam (Keppra) 750 mg BID PO Last administered on 12/13/16 21:16; Admin Dose 750 MG; Start 12/11/16 at 09:00 Magnesium Hydroxide (Milk Of Mag) 30 ml Q24H PRN PO CONSTIPATION; Start at 00:00 Pantoprazole 40 mg 40 mg DAILY@06 PO Last administered on 12/13/16 06:15; Admin Dose 40 MG; Start 12/11/16 at 06:00 Imipenem/ Cilastatin Sodium (Primaxin 250 Mg/ 100 ml (Pmx)) 100 ml @ 100 mls/ hr Q12 IVPB Last administered on 12/13/16 21:16; Admin Dose 100 MLS/HR; Start 12/11/16 at 09:00 Donepezil HCl (Aricept) 10 mg DAILY PO Last administered on 12/13/16 08:37; Admin Dose 10 MG; Start 12/11/16 at 09:00 ROSHAN NEELY Dec 13, 2016 21:30
[2016-12-14] MEDS: SOD CHLORIDE 0.45% 1,000 ML IV SCH ×3 (02:11→18:30)
[2016-12-14 06:06] LABS: BASOPHILS % 0.6 % (0.0-2.0); EOSINOPHILS # 0.4 10^3/ul (0.0-0.5); EOSINOPHILS % 7.1 % (0.0-7.0); HEMATOCRIT 36.5 % (37.0-47.0); HEMOGLOBIN 12.1 g/dl (12.0-16.0); LYMPHOCYTES # 1.6 10^3/ul (0.8-2.9); LYMPHOCYTES % 29.9 % (15.0-51.0); MEAN CORPUSCULAR HEMOGLOBIN 29.9 pg (29.0-33.0); MEAN CORPUSCULAR HGB CONC 33.1 g/dl (32.0-37.0); MEAN CORPUSCULAR VOLUME 90.3 fl (82.0-101.0); MEAN PLATELET VOLUME 8.2 fl (7.4-10.4); MONOCYTE # 0.5 10^3/ul (0.3-0.9); MONOCYTES % 8.9 % (0.0-11.0); NEUTROPHIL # 2.9 10^3/ul (1.6-7.5); NEUTROPHILS % 53.5 % (39.0-77.0); PLATELET COUNT 249 10^3/UL (140-440); RED BLOOD COUNT 4.04 10^6/ul (4.20-5.40); RED CELL DISTRIBUTION WIDTH 15.1 % (11.5-14.5); UNCORRECTED WBC 5.4 10^3/ul (4.8-10.8); WHITE BLOOD COUNT 5.4 10^3/ul (4.8-10.8)
[2016-12-14 06:22] LABS: CONDITION 1; LH ANALYZER COMMENTS 1
[2016-12-14 06:31] LABS: POTASSIUM 4.5 mmol/L (3.5-5.1)
[2016-12-14 06:33] LABS: CREATININE 2.07 mg/dl (0.44-1.00)
[2016-12-14 06:34] LABS: CALCIUM 8.8 mg/dl (8.4-10.2)
[2016-12-14] MEDS: LEVOTHYROXINE 100 MCG TAB PO SCH (06:40)
[2016-12-14] MEDS: PANTOPRAZOLE (EC) 40 MG TAB PO SCH (06:40)
[2016-12-14 07:32] VITALS: BP 100/58; RESP 16
[2016-12-14] MEDS: ASCORBIC ACID 500 MG TAB PO SCH ×2 (08:40→21:48)
[2016-12-14] MEDS: ASPIRIN 81 MG TAB PO SCH (08:40)
[2016-12-14] MEDS: DONEPEZIL 10 MG TAB PO SCH (08:40)
[2016-12-14] MEDS: CHOLECALCIFEROL 1,000 UNIT TAB PO SCH (08:40)
[2016-12-14] MEDS: LEVETIRACETAM 750 MG TAB PO SCH ×2 (08:40→21:48)
[2016-12-14] MEDS: IMIPENEM-CILAST 250MG IV (PMX) 100 ML IVPB SCH ×2 (08:41→21:48)
[2016-12-14] MEDS: ENOXAPARIN 30 MG/0.3 ML SYG SC SCH (09:11)
--- NOTE | 2016-12-14 18:17 | PN ---
Date/Time of Note Date/Time of Note DATE: 12/14/16 TIME: 18:14 Assessment/Plan VTE Prophylaxis VTE Prophylaxis Intervention: SCD's Lines/Catheters [facility] Type [facility]): Peripheral IV Urinary Cath still in place: No Assessment/Plan Chief Complaint/Hosp Course ASSESSMENT AND PLAN: 1. E. coli ESBL urinary tract infection per urinalysis. F/up on urine culture. Continue patient on Primaxin. 2. Dehydration. Continue IV fluids. Monitor electrolytes. 3. Acute kidney injury secondary to dehydration on top of chronic kidney disease. Continue to monitor BUN and creatinine. Dr Marcum in nephrology consult. 4. Dementia. Continue Aricept. 5. Hypothyroidism. Continue Synthroid. 6. History of seizure disorder. Continue Keppra. 7. History of cerebrovascular accident. Continue patient on aspirin. Continue Lovenox for deep venous thrombosis prophylaxis and Protonix for peptic ulcer disease prophylaxis. Further recommendations based on clinical course. Plan of care discussed with Dr. Mcginnis. Problems: Subjective 24 Hr Interval Summary Free Text/Dictation Patient complains of nausea, no fever no vomiting per RN, slight improvement in creatinine. Exam/Review of Systems Vital Signs Vitals Vital Signs Date Time Temp Pulse Resp B/P Pulse Ox O2 Delivery O2 Flow Rate FiO2 12/14/16 07:32 97.5 68 16 100/58 98 12/10/16 23:12 Room Air Intake and Output 12/13/16 12/13/16 12/14/16 15:00 23:00 07:00 Intake Total 1460 ml 1240 ml Balance 1460 ml 1240 ml Exam GENERAL: Well-developed, well-nourished female currently is awake, alert. HEENT: Head is atraumatic, normocephalic. NECK: Supple. No cervical lymphadenopathy, no thyromegaly. CHEST: Lungs clear bilaterally. There is no rhonchi, wheezes, or rales noted. CARDIOVASCULAR: Normal S1, S2. No murmurs, gallops, clicks, rubs noted. ABDOMEN: Round, soft, nondistended, nontender. EXTREMITIES: No edema, clubbing, cyanosis. Pulses equal bilaterally 2+. SKIN: There is no rash, petechiae noted. NEUROLOGIC: The patient is awake, alert and oriented to name and situation. Results Result Diagram: 12/14/1645212/14/16452 Results 24 hrs Laboratory Tests Test 12/14/16 04:53 Anion Gap 17 H Basophils # 0.0 Basophils % 0.6 Blood Morphology Comment Blood Urea Nitrogen 36 H Calcium Level 8.8 Carbon Dioxide Level 24 Chloride Level 110 Creatinine 2.07 H Eosinophils # 0.4 Eosinophils % 7.1 H Glucose Level 75 Hematocrit 36.5 L Hemoglobin 12.1 Lymphocytes # 1.6 Lymphocytes % 29.9 Mean Corpuscular Hemoglobin 29.9 Mean Corpuscular Hemoglobin Concent 33.1 Mean Corpuscular Volume 90.3 Mean Platelet Volume 8.2 Monocytes # 0.5 Monocytes % 8.9 Neutrophils # 2.9 Neutrophils % 53.5 Nucleated Red Blood Cells # 0.0 Nucleated Red Blood Cells % 0.0 Platelet Count 249 Potassium Level 4.5 Red Blood Count 4.04 L Red Cell Distribution Width 15.1 H Sodium Level 146 H White Blood Count 5.4 Medications Medications Current Medications Sodium Chloride (1/2 NS) 1,000 ml @ 60 mls/hr [id number] IV Last administered on 12/14/16 02:11; Admin Dose 60 MLS/HR; Start 12/11/16 at 00:00 Miscellaneous Information (* Miscellaneous Pharmacy Order) PRIMAXIN PER PHARMACY ONCE XX ; Start 12/11/16 at 00:00 Enoxaparin Sodium (Lovenox) 30 mg DAILY SC Last administered on 12/14/16 09:11 ; Admin Dose 30 MG; Start 12/11/16 at 09:00 Morphine Sulfate (morphine) 2 mg Q2H PRN IV PAIN; Start 12/11/16 at 00:00 Ondansetron HCl (Zofran Inj) 4 mg Q6H PRN IV NAUSEA AND/OR VOMITING Last administered on 12/13/16 10:22; Admin Dose 4 MG; Start 12/11/16 at 00:00 Acetaminophen (Tylenol Tab) 650 mg Q4H PRN PO FOR MILD PAIN ; Start 12/11 at 00:00 Ascorbic Acid (Vitamin C) 500 mg BID PO Last administered on 12/14/16 08:40; Admin Dose 500 MG; Start 12/11/16 at 09:00 Aspirin (Aspirin) 81 mg DAILY PO Last administered on 12/14/16 08:40; Admin Dose 81 MG; Start 12/11/16 at 09:00 Bisacodyl (Dulcolax Supp) 10 mg Q24H PRN [place] CONSTIPATION; Start 12/11/16 at 00: 00 Cholecalciferol (Vitamin D) 3,000 unit DAILY PO Last administered on 12/14/16 08:40; Admin Dose 3,000 UNIT; Start 12/11/16 at 09:00 Docusate Sodium (Colace) 100 mg BID PRN PO CONSTIPATION; Start 12/11/16 at 00: 00 Levetiracetam (Keppra) 750 mg BID PO Last administered on 12/14/16 08:40; Admin Dose 750 MG; Start 12/11/16 at 09:00 Magnesium Hydroxide (Milk Of Mag) 30 ml Q24H PRN PO CONSTIPATION; Start at 00:00 Pantoprazole 40 mg 40 mg DAILY@06 PO Last administered on 12/14/16 06:40; Admin Dose 40 MG; Start 12/11/16 at 06:00 Imipenem/ Cilastatin Sodium (Primaxin 250 Mg/ 100 ml (Pmx)) 100 ml @ 100 mls/ hr Q12 IVPB Last administered on 12/14/16 08:41; Admin Dose 100 MLS/HR; Start 12/11/16 at 09:00 Donepezil HCl (Aricept) 10 mg DAILY PO Last administered on 12/14/16 08:40; Admin Dose 10 MG; Start 12/11/16 at 09:00 NEFTALI KEN Dec 14, 2016 18:17
[2016-12-14 20:22] VITALS: BP 121/57; RESP 18
--- NOTE | 2016-12-14 21:23 | CONS ---
Date/Time of Note Date/Time of Note DATE: 12/14/16 TIME: 21:18 Assessment/Plan Assessment/Plan Problems: (1) Ureteral stone with hydronephrosis Status: Chronic Comment: Pt has been followed by (2) Anemia associated with chronic renal failure Status: Chronic Comment: Hct is reasonable (3) Mild dehydration Status: Acute Comment: Pt responding to IV Fluids (4) Pyelonephritis Status: Acute Comment: Urine culture E Coli, sensitivity pending Pt on Imipenem, will continue for now Consultation Date/Type/Reason Admit Date/Time Dec 10, 2016 at 22:20 Initial Consult Date 12/12/16 Type of Consultation: Nephrology Referring Provider: NEFTALI KEN 24 HR Interval Summary Constitutional: improved Exam/Review of Systems Vital Signs Vitals Vital Signs Date Time Temp Pulse Resp B/P Pulse Ox O2 Delivery O2 Flow Rate FiO2 12/14/16 20:22 97.3 62 18 121/57 96 12/10/16 23:12 Room Air Intake and Output 12/13/16 12/13/16 12/14/16 15:00 23:00 07:00 Intake Total 1460 ml 1240 ml Balance 1460 ml 1240 ml Exam Constitutional: alert, oriented Psych: no complaints Head: normocephalic Eyes: PERRL, nl conjunctiva ENMT: nl external ears & nose Neck: supple Respiratory: clear to auscultation Cardiovascular: regular rate and rhythm Gastrointestinal: soft Musculoskeletal: nl extremities to inspection Neurological: MEDICAL EDUCATION SPECIALIST II-XII intact Results BUN/Creat has improved a bit Result Diagram: 12/14/16 0453 12/14/16 0453 Results 24 hrs Laboratory Tests Test 12/14/16 04:53 Anion Gap 17 H Basophils # 0.0 Basophils % 0.6 Blood Morphology Comment Blood Urea Nitrogen 36 H Calcium Level 8.8 Carbon Dioxide Level 24 Chloride Level 110 Creatinine 2.07 H Eosinophils # 0.4 Eosinophils % 7.1 H Glucose Level 75 Hematocrit 36.5 L Hemoglobin 12.1 Lymphocytes # 1.6 Lymphocytes % 29.9 Mean Corpuscular Hemoglobin 29.9 Mean Corpuscular Hemoglobin Concent 33.1 Mean Corpuscular Volume 90.3 Mean Platelet Volume 8.2 Monocytes # 0.5 Monocytes % 8.9 Neutrophils # 2.9 Neutrophils % 53.5 Nucleated Red Blood Cells # 0.0 Nucleated Red Blood Cells % 0.0 Platelet Count 249 Potassium Level 4.5 Red Blood Count 4.04 L Red Cell Distribution Width 15.1 H Sodium Level 146 H White Blood Count 5.4 Medications Medications Current Medications Sodium Chloride (1/2 NS) 1,000 ml @ 60 mls/hr [id number] IV Last administered on 12/14/16 18:30; Admin Dose 60 MLS/HR; Start 12/11/16 at 00:00 Miscellaneous Information (* Miscellaneous Pharmacy Order) PRIMAXIN PER PHARMACY ONCE XX ; Start 12/11/16 at 00:00 Enoxaparin Sodium (Lovenox) 30 mg DAILY SC Last administered on 12/14/16 09:11 ; Admin Dose 30 MG; Start 12/11/16 at 09:00 Morphine Sulfate (morphine) 2 mg Q2H PRN IV PAIN; Start 12/11/16 at 00:00 Ondansetron HCl (Zofran Inj) 4 mg Q6H PRN IV NAUSEA AND/OR VOMITING Last administered on 12/13/16 10:22; Admin Dose 4 MG; Start 12/11/16 at 00:00 Acetaminophen (Tylenol Tab) 650 mg Q4H PRN PO FOR MILD PAIN -03/11; Start 12/11 at 00:00 Ascorbic Acid (Vitamin C) 500 mg BID PO Last administered on 12/14/16 08:40; Admin Dose 500 MG; Start 12/11/16 at 09:00 Aspirin (Aspirin) 81 mg DAILY PO Last administered on 12/14/16 08:40; Admin Dose 81 MG; Start 12/11/16 at 09:00 Bisacodyl (Dulcolax Supp) 10 mg Q24H PRN [place] CONSTIPATION; Start 12/11/16 at 00: 00 Cholecalciferol (Vitamin D) 3,000 unit DAILY PO Last administered on 12/14/16 08:40; Admin Dose 3,000 UNIT; Start 12/11/16 at 09:00 Docusate Sodium (Colace) 100 mg BID PRN PO CONSTIPATION; Start 12/11/16 at 00: 00 Levetiracetam (Keppra) 750 mg BID PO Last administered on 12/14/16 08:40; Admin Dose 750 MG; Start 12/11/16 at 09:00 Magnesium Hydroxide (Milk Of Mag) 30 ml Q24H PRN PO CONSTIPATION; Start at 00:00 Pantoprazole 40 mg 40 mg DAILY@06 PO Last administered on 12/14/16 06:40; Admin Dose 40 MG; Start 12/11/16 at 06:00 Imipenem/ Cilastatin Sodium (Primaxin 250 Mg/ 100 ml (Pmx)) 100 ml @ 100 mls/ hr Q12 IVPB Last administered on 12/14/16 08:41; Admin Dose 100 MLS/HR; Start 12/11/16 at 09:00 Donepezil HCl (Aricept) 10 mg DAILY PO Last administered on 12/14/16 08:40; Admin Dose 10 MG; Start 12/11/16 at 09:00 LACY SAAVEDRA MD Dec 14, 2016 21:23
[2016-12-15] MEDS: PANTOPRAZOLE (EC) 40 MG TAB PO SCH (05:55)
[2016-12-15 07:05] LABS: POTASSIUM 5.3 mmol/L (3.5-5.1)
[2016-12-15 07:08] LABS: CREATININE 1.94 mg/dl (0.44-1.00)
[2016-12-15 07:09] LABS: CALCIUM 8.9 mg/dl (8.4-10.2)
[2016-12-15] MEDS: LEVOTHYROXINE 100 MCG TAB PO SCH (07:26)
[2016-12-15 07:58] VITALS: BP 128/63; RESP 22
[2016-12-15] MEDS: IMIPENEM-CILAST 250MG IV (PMX) 100 ML IVPB SCH ×2 (09:41→20:24)
[2016-12-15] MEDS: CHOLECALCIFEROL 1,000 UNIT TAB PO SCH (09:42)
[2016-12-15] MEDS: ASPIRIN 81 MG TAB PO SCH (09:42)
[2016-12-15] MEDS: ASCORBIC ACID 500 MG TAB PO SCH ×2 (09:42→20:24)
[2016-12-15] MEDS: LEVETIRACETAM 750 MG TAB PO SCH ×2 (09:42→20:24)
[2016-12-15] MEDS: DONEPEZIL 10 MG TAB PO SCH (09:42)
[2016-12-15] MEDS: ENOXAPARIN 30 MG/0.3 ML SYG SC SCH (09:53)
--- NOTE | 2016-12-15 11:39 | PN ---
Date/Time of Note Date/Time of Note DATE: 12/15/16 TIME: 11:38 Assessment/Plan VTE Prophylaxis VTE Prophylaxis Intervention: other Lines/Catheters IV Catheter Type (from [facility]): Peripheral IV Urinary Cath still in place: No Assessment/Plan Assessment/Plan 1. Urinary tract infection per urinalysis. F/up on urine culture. Continue patient on Primaxin. 2. Dehydration. Continue IV fluids. Monitor electrolytes. 3. Acute kidney injury secondary to dehydration on top of chronic kidney disease. Continue to monitor BUN and creatinine. Dr Marcum in nephrology consult. 4. Dementia. Continue Aricept. 5. Hypothyroidism. Continue Synthroid. 6. History of seizure disorder. Continue Keppra. 7. History of cerebrovascular accident. Continue patient on aspirin. Continue Lovenox for deep venous thrombosis prophylaxis and Protonix for peptic ulcer disease prophylaxis. Further recommendations based on clinical course. Plan of care discussed with Dr. Mcginnis. Subjective 24 Hr Interval Summary Eyes: no complaints ENT: no complaints Respiratory: no complaints Cardiovascular: no complaints Gastrointestinal: no complaints Genitourinary: no complaints Musculoskeletal: no complaints Skin: no complaints Neurologic: no complaints Endocrine: no complaints Lymphatic: no complaints Psychological: nl mood/affect Immunologic: no complaints Exam/Review of Systems Vital Signs Vitals Vital Signs Date Time Temp Pulse Resp B/P Pulse Ox O2 Delivery O2 Flow Rate FiO2 12/15/16 07:58 98.3 65 22 128/63 97 Intake and Output 12/14/16 12/14/16 12/15/16 15:00 23:00 07:00 Intake Total 1540 ml 1053.2 ml Balance 1540 ml 1053.2 ml Exam Constitutional: alert, well developed Psych: nl mood/affect Eyes: EOMI, PERRL, nl sclera ENMT: nl external ears & nose Neck: non-tender Respiratory: clear to auscultation Cardiovascular: nl pulses Gastrointestinal: non-tender, soft Musculoskeletal: nl extremities to inspection Extremities: normal pulses Neurological: confused, nl speech Skin: nl turgor Lymph: nontender Results Result Diagram: 12/14/16 0453 12/15/16 0525 Results 24 hrs Laboratory Tests Test 12/15/16 05:25 Anion Gap 18 H Blood Urea Nitrogen 32 H Calcium Level 8.9 Carbon Dioxide Level 21 Chloride Level 109 Creatinine 1.94 H Glucose Level 76 Potassium Level 5.3 H Sodium Level 143 Medications Medications Current Medications Sodium Chloride (1/2 NS) 1,000 ml @ 60 mls/hr [id number] IV Last administered on 12/14/16 18:30; Admin Dose 60 MLS/HR; Start 12/11/16 at 00:00 Miscellaneous Information (* Miscellaneous Pharmacy Order) PRIMAXIN PER PHARMACY ONCE XX ; Start 12/11/16 at 00:00 Enoxaparin Sodium (Lovenox) 30 mg DAILY SC Last administered on 12/15/16 09:53 ; Admin Dose 30 MG; Start 12/11/16 at 09:00 Morphine Sulfate (morphine) 2 mg Q2H PRN IV PAIN; Start 12/11/16 at 00:00 Ondansetron HCl (Zofran Inj) 4 mg Q6H PRN IV NAUSEA AND/OR VOMITING Last administered on 12/13/16 10:22; Admin Dose 4 MG; Start 12/11/16 at 00:00 Acetaminophen (Tylenol Tab) 650 mg Q4H PRN PO FOR MILD PAIN ; Start 12/11 at 00:00 Ascorbic Acid (Vitamin C) 500 mg BID PO Last administered on 12/15/16 09:42; Admin Dose 500 MG; Start 12/11/16 at 09:00 Aspirin (Aspirin) 81 mg DAILY PO Last administered on 12/15/16 09:42; Admin Dose 81 MG; Start 12/11/16 at 09:00 Bisacodyl (Dulcolax Supp) 10 mg Q24H PRN [place] CONSTIPATION; Start 12/11/16 at 00: 00 Cholecalciferol (Vitamin D) 3,000 unit DAILY PO Last administered on 12/15/16 09:42; Admin Dose 3,000 UNIT; Start 12/11/16 at 09:00 Docusate Sodium (Colace) 100 mg BID PRN PO CONSTIPATION; Start 12/11/16 at 00: 00 Levetiracetam (Keppra) 750 mg BID PO Last administered on 12/15/16 09:42; Admin Dose 750 MG; Start 12/11/16 at 09:00 Magnesium Hydroxide (Milk Of Mag) 30 ml Q24H PRN PO CONSTIPATION; Start at 00:00 Pantoprazole 40 mg 40 mg DAILY@06 PO Last administered on 12/15/16 05:55; Admin Dose 40 MG; Start 12/11/16 at 06:00 Imipenem/ Cilastatin Sodium (Primaxin 250 Mg/ 100 ml (Pmx)) 100 ml @ 100 mls/ hr Q12 IVPB Last administered on 12/15/16 09:41; Admin Dose 100 MLS/HR; Start 12/11/16 at 09:00 Donepezil HCl (Aricept) 10 mg DAILY PO Last administered on 12/15/16 09:42; Admin Dose 10 MG; Start 12/11/16 at 09:00 ROSHAN NEELY Dec 15, 2016 11:39
[2016-12-15] MEDS ORDERED: NA POLYST SULFON 15 GM/60 ML BTL PO ONE (12:00)
[2016-12-15] MEDS: SOD CHLORIDE 0.45% 1,000 ML IV SCH (14:17)
[2016-12-15 19:37] VITALS: BP 128/68; RESP 20
[2016-12-16] MEDS: PANTOPRAZOLE (EC) 40 MG TAB PO SCH (05:19)
[2016-12-16 05:37] LABS: BASOPHILS % 0.7 % (0.0-2.0); EOSINOPHILS # 0.4 10^3/ul (0.0-0.5); EOSINOPHILS % 6.6 % (0.0-7.0); HEMATOCRIT 35.3 % (37.0-47.0); HEMOGLOBIN 11.8 g/dl (12.0-16.0); LYMPHOCYTES # 2.1 10^3/ul (0.8-2.9); MEAN CORPUSCULAR HEMOGLOBIN 30.3 pg (29.0-33.0); MEAN CORPUSCULAR HGB CONC 33.4 g/dl (32.0-37.0); MEAN CORPUSCULAR VOLUME 90.5 fl (82.0-101.0); MONOCYTE # 0.5 10^3/ul (0.3-0.9); MONOCYTES % 8.7 % (0.0-11.0); PLATELET COUNT 238 10^3/UL (140-440); RED BLOOD COUNT 3.91 10^6/ul (4.20-5.40); RED CELL DISTRIBUTION WIDTH 14.9 % (11.5-14.5)
[2016-12-16 05:48] LABS: CONDITION 1; LH ANALYZER COMMENTS 1
[2016-12-16 05:57] LABS: POTASSIUM 4.4 mmol/L (3.5-5.1)
[2016-12-16 05:59] LABS: CREATININE 1.98 mg/dl (0.44-1.00)
[2016-12-16 06:00] LABS: CALCIUM 8.8 mg/dl (8.4-10.2)
[2016-12-16] MEDS: LEVOTHYROXINE 100 MCG TAB PO SCH (06:26)
[2016-12-16 07:27] VITALS: BP 117/58; RESP 22
[2016-12-16] MEDS: ASCORBIC ACID 500 MG TAB PO SCH ×2 (08:49→20:58)
[2016-12-16] MEDS: CHOLECALCIFEROL 1,000 UNIT TAB PO SCH (08:49)
[2016-12-16] MEDS: ASPIRIN 81 MG TAB PO SCH (08:49)
[2016-12-16] MEDS: LEVETIRACETAM 750 MG TAB PO SCH ×2 (08:49→20:58)
[2016-12-16] MEDS: IMIPENEM-CILAST 250MG IV (PMX) 100 ML IVPB SCH ×2 (08:49→20:58)
[2016-12-16] MEDS: DONEPEZIL 10 MG TAB PO SCH (08:49)
[2016-12-16] MEDS: ENOXAPARIN 30 MG/0.3 ML SYG SC SCH (09:31)
--- NOTE | 2016-12-16 10:30 | PN ---
Date/Time of Note Date/Time of Note DATE: 12/16/16 TIME: 10:28 Assessment/Plan VTE Prophylaxis VTE Prophylaxis Intervention: LMWH Lines/Catheters [facility] Type [facility] Peripheral IV Urinary Cath still in place: No Assessment/Plan Assessment/Plan 1. Urinary tract infection per urinalysis. F/up on urine culture. Continue patient on Primaxin. 2. Dehydration. Continue IV fluids. Monitor electrolytes. 3. Acute kidney injury secondary to dehydration on top of chronic kidney disease. Continue to monitor BUN and creatinine. Dr Marcum in nephrology consult. 4. Dementia. Continue Aricept. 5. Hypothyroidism. Continue Synthroid. 6. History of seizure disorder. Continue Keppra. 7. History of cerebrovascular accident. Continue patient on aspirin. 8. Hyperkalemia- resolved. Continue Lovenox for deep venous thrombosis prophylaxis and Protonix for peptic ulcer disease prophylaxis. Further recommendations based on clinical course. Plan of care discussed with Dr. Mcginnis. Subjective 24 Hr Interval Summary Free Text/Dictation NAD, Ambulates to bathroom with assist. no new issues reported by staff. Exam/Review of Systems Vital Signs Vitals Vital Signs Date Time Temp Pulse Resp B/P Pulse Ox O2 Delivery O2 Flow Rate FiO2 12/16/16 07:27 97.7 71 22 117/58 96 Intake and Output 12/15/16 12/15/16 12/16/16 15:00 23:00 07:00 Intake Total 526.8 ml 1100 ml 820 ml Output Total 900 ml Balance 526.8 ml 1100 ml -80 ml Exam Constitutional: alert Psych: nl mood/affect Eyes: EOMI, PERRL, nl sclera ENMT: nl external ears & nose Neck: non-tender Respiratory: clear to auscultation Cardiovascular: nl pulses Gastrointestinal: non-tender, soft Musculoskeletal: nl extremities to inspection Extremities: normal pulses Neurological: nl speech, other (follows simple commands. ) Lymph: nontender Results Result Diagram: 12/16/1643912/16/160 Results 24 hrs Laboratory Tests Test 12/16/16 04:40 Anion Gap 14 Basophils # 0.0 Basophils % 0.7 Blood Morphology Comment Blood Urea Nitrogen 30 H Calcium Level 8.8 Carbon Dioxide Level 22 Chloride Level 111 H Creatinine 1.98 H Eosinophils # 0.4 Eosinophils % 6.6 Glucose Level 76 Hematocrit 35.3 L Hemoglobin 11.8 L Lymphocytes # 2.1 Lymphocytes % 35.0 Mean Corpuscular Hemoglobin 30.3 Mean Corpuscular Hemoglobin Concent 33.4 Mean Corpuscular Volume 90.5 Mean Platelet Volume 8.0 Monocytes # 0.5 Monocytes % 8.7 Neutrophils # 3.0 Neutrophils % 49.0 Nucleated Red Blood Cells # 0.0 Nucleated Red Blood Cells % 0.0 Platelet Count 238 Potassium Level 4.4 Red Blood Count 3.91 L Red Cell Distribution Width 14.9 H Sodium Level 143 White Blood Count 6.0 Medications Medications Current Medications Sodium Chloride (1/2 NS) 1,000 ml @ 60 mls/hr [id number] IV Last administered on 12/15/16 14:17; Admin Dose 60 MLS/HR; Start 12/11/16 at 00:00 Miscellaneous Information (* Miscellaneous Pharmacy Order) PRIMAXIN PER PHARMACY ONCE XX ; Start 12/11/16 at 00:00 Enoxaparin Sodium (Lovenox) 30 mg DAILY SC Last administered on 12/16/16 09:31 ; Admin Dose 30 MG; Start 12/11/16 at 09:00 Morphine Sulfate (morphine) 2 mg Q2H PRN IV PAIN; Start 12/11/16 at 00:00 Ondansetron HCl (Zofran Inj) 4 mg Q6H PRN IV NAUSEA AND/OR VOMITING Last administered on 12/13/16 10:22; Admin Dose 4 MG; Start 12/11/16 at 00:00 Acetaminophen (Tylenol Tab) 650 mg Q4H PRN PO FOR MILD PAIN ; Start 12/11 at 00:00 Ascorbic Acid (Vitamin C) 500 mg BID PO Last administered on 12/16/16 08:49; Admin Dose 500 MG; Start 12/11/16 at 09:00 Aspirin (Aspirin) 81 mg DAILY PO Last administered on 12/16/16 08:49; Admin Dose 81 MG; Start 12/11/16 at 09:00 Bisacodyl (Dulcolax Supp) 10 mg Q24H PRN [place] CONSTIPATION; Start 12/11/16 at 00: 00 Cholecalciferol (Vitamin D) 3,000 unit DAILY PO Last administered on 12/16/16 08:49; Admin Dose 3,000 UNIT; Start 12/11/16 at 09:00 Docusate Sodium (Colace) 100 mg BID PRN PO CONSTIPATION; Start 12/11/16 at 00: 00 Levetiracetam (Keppra) 750 mg BID PO Last administered on 12/16/16 08:49; Admin Dose 750 MG; Start 12/11/16 at 09:00 Magnesium Hydroxide (Milk Of Mag) 30 ml Q24H PRN PO CONSTIPATION; Start at 00:00 Pantoprazole 40 mg 40 mg DAILY@06 PO Last administered on 12/16/16 05:19; Admin Dose 40 MG; Start 12/11/16 at 06:00 Imipenem/ Cilastatin Sodium (Primaxin 250 Mg/ 100 ml (Pmx)) 100 ml @ 100 mls/ hr Q12 IVPB Last administered on 12/16/16 08:49; Admin Dose 100 MLS/HR; Start 12/11/16 at 09:00 Donepezil HCl (Aricept) 10 mg DAILY PO Last administered on 12/16/16 08:49; Admin Dose 10 MG; Start 12/11/16 at 09:00 ROSHAN NEELY Dec 16, 2016 10:30
[2016-12-16] MEDS: SOD CHLORIDE 0.45% 1,000 ML IV SCH (11:35)
[2016-12-16 19:55] VITALS: BP 135/68; RESP 20
[2016-12-17] MEDS: PANTOPRAZOLE (EC) 40 MG TAB PO SCH (05:33)
[2016-12-17] MEDS: SOD CHLORIDE 0.45% 1,000 ML IV SCH ×2 (05:35→21:10)
[2016-12-17] MEDS: LEVOTHYROXINE 100 MCG TAB PO SCH ×2 (05:35→09:45)
[2016-12-17 06:39] LABS: POTASSIUM 4.6 mmol/L (3.5-5.1)
[2016-12-17 06:41] LABS: CREATININE 1.9 mg/dl (0.44-1.00)
[2016-12-17 06:42] LABS: CALCIUM 8.7 mg/dl (8.4-10.2)
[2016-12-17 08:14] VITALS: BP 133/71; RESP 18
[2016-12-17 08:16] LABS: BASOPHILS % 0.5 % (0.0-2.0); EOSINOPHILS # 0.4 10^3/ul (0.0-0.5); EOSINOPHILS % 7.1 % (0.0-7.0); HEMATOCRIT 36.9 % (37.0-47.0); HEMOGLOBIN 12.2 g/dl (12.0-16.0); LYMPHOCYTES # 1.7 10^3/ul (0.8-2.9); LYMPHOCYTES % 27.6 % (15.0-51.0); MEAN PLATELET VOLUME 8.3 fl (7.4-10.4); MONOCYTE # 0.6 10^3/ul (0.3-0.9); MONOCYTES % 9.2 % (0.0-11.0); NEUTROPHIL # 3.5 10^3/ul (1.6-7.5); NEUTROPHILS % 55.6 % (39.0-77.0); PLATELET COUNT 236 10^3/UL (140-440); RED BLOOD COUNT 4.06 10^6/ul (4.20-5.40); RED CELL DISTRIBUTION WIDTH 15.1 % (11.5-14.5); UNCORRECTED WBC 6.2 10^3/ul (4.8-10.8); WHITE BLOOD COUNT 6.2 10^3/ul (4.8-10.8)
[2016-12-17 08:26] LABS: CONDITION 1; LH ANALYZER COMMENTS 1
[2016-12-17] MEDS: LEVETIRACETAM 750 MG TAB PO SCH ×2 (09:45→21:05)
[2016-12-17] MEDS: DONEPEZIL 10 MG TAB PO SCH (09:46)
[2016-12-17] MEDS: ASPIRIN 81 MG TAB PO SCH (09:46)
[2016-12-17] MEDS: CHOLECALCIFEROL 1,000 UNIT TAB PO SCH (09:46)
[2016-12-17] MEDS: ASCORBIC ACID 500 MG TAB PO SCH ×2 (09:46→21:05)
[2016-12-17] MEDS: ENOXAPARIN 30 MG/0.3 ML SYG SC SCH (09:48)
[2016-12-17] MEDS: IMIPENEM-CILAST 250MG IV (PMX) 100 ML IVPB SCH ×2 (09:54→21:06)
--- NOTE | 2016-12-17 18:47 | PN ---
Date/Time of Note Date/Time of Note DATE: 12/17/16 TIME: 18:45 Assessment/Plan VTE Prophylaxis VTE Prophylaxis Intervention: LMWH Lines/Catheters IV Catheter Type (from [facility]): Saline Lock Urinary Cath still in place: No Assessment/Plan Chief Complaint/Hosp Course ASSESSMENT AND PLAN: 1. E. coli ESBL urinary tract infection per urinalysis. F/up on urine culture. Continue patient on Primaxin. 2. Dehydration. Continue IV fluids. Monitor electrolytes. 3. Acute kidney injury secondary to dehydration on top of chronic kidney disease. Continue to monitor BUN and creatinine. Dr Marcum in nephrology consult. 4. Dementia. Continue Aricept. 5. Hypothyroidism. Continue Synthroid. 6. History of seizure disorder. Continue Keppra. 7. History of cerebrovascular accident. Continue patient on aspirin. Continue Lovenox for deep venous thrombosis prophylaxis and Protonix for peptic ulcer disease prophylaxis. Further recommendations based on clinical course. Plan of care discussed with Dr. Marcum. Problems: Subjective 24 Hr Interval Summary Free Text/Dictation Patient denies any nausea vomiting, denies abdominal pain. Exam/Review of Systems Vital Signs Vitals Vital Signs Date Time Temp Pulse Resp B/P Pulse Ox O2 Delivery O2 Flow Rate FiO2 12/17/16 08:14 98.2 73 18 133/71 94 Intake and Output 12/16/16 12/16/16 12/17/16 15:00 23:00 07:00 Intake Total 400 ml 1360 ml 840 ml Output Total 1100 ml Balance 400 ml 1360 ml -260 ml Exam GENERAL: Well-developed, well-nourished female currently is awake, alert. HEENT: Head is atraumatic, normocephalic. NECK: Supple. No cervical lymphadenopathy, no thyromegaly. CHEST: Lungs clear bilaterally. There is no rhonchi, wheezes, or rales noted. CARDIOVASCULAR: Normal S1, S2. No murmurs, gallops, clicks, rubs noted. ABDOMEN: Round, soft, nondistended, nontender. EXTREMITIES: No edema, clubbing, cyanosis. Pulses equal bilaterally 2+. SKIN: There is no rash, petechiae noted. NEUROLOGIC: The patient is awake, alert and oriented to name and situation. Results Result Diagram: 12/17/16 0640 12/17/16 0640 Results 24 hrs Laboratory Tests Test 12/17/16 06:40 Anion Gap 16 Basophils # 0.0 Basophils % 0.5 Blood Morphology Comment Blood Urea Nitrogen 35 H Calcium Level 8.7 Carbon Dioxide Level 21 Chloride Level 113 H Creatinine 1.90 H Eosinophils # 0.4 Eosinophils % 7.1 H Glucose Level 75 Hematocrit 36.9 L Hemoglobin 12.2 Lymphocytes # 1.7 Lymphocytes % 27.6 Mean Corpuscular Hemoglobin 30.0 Mean Corpuscular Hemoglobin Concent 33.0 Mean Corpuscular Volume 91.0 Mean Platelet Volume 8.3 Monocytes # 0.6 Monocytes % 9.2 Neutrophils # 3.5 Neutrophils % 55.6 Nucleated Red Blood Cells # 0.0 Nucleated Red Blood Cells % 0.0 Platelet Count 236 Potassium Level 4.6 Red Blood Count 4.06 L Red Cell Distribution Width 15.1 H Sodium Level 145 H White Blood Count 6.2 Medications Medications Current Medications Sodium Chloride (1/2 NS) 1,000 ml @ 60 mls/hr [id number] IV Last administered on 12/17/16 05:35; Admin Dose 60 MLS/HR; Start 12/11/16 at 00:00 Miscellaneous Information (* Miscellaneous Pharmacy Order) PRIMAXIN PER PHARMACY ONCE XX ; Start 12/11/16 at 00:00 Enoxaparin Sodium (Lovenox) 30 mg DAILY SC Last administered on 12/17/16 09:48 ; Admin Dose 30 MG; Start 12/11/16 at 09:00 Morphine Sulfate (morphine) 2 mg Q2H PRN IV PAIN; Start 12/11/16 at 00:00 Ondansetron HCl (Zofran Inj) 4 mg Q6H PRN IV NAUSEA AND/OR VOMITING Last administered on 12/13/16 10:22; Admin Dose 4 MG; Start 12/11/16 at 00:00 Acetaminophen (Tylenol Tab) 650 mg Q4H PRN PO FOR MILD PAIN ; Start 12/11 at 00:00 Ascorbic Acid (Vitamin C) 500 mg BID PO Last administered on 12/17/16 09:46; Admin Dose 500 MG; Start 12/11/16 at 09:00 Aspirin (Aspirin) 81 mg DAILY PO Last administered on 12/17/16 09:46; Admin Dose 81 MG; Start 12/11/16 at 09:00 Bisacodyl (Dulcolax Supp) 10 mg Q24H PRN [place] CONSTIPATION; Start 12/11/16 at 00: 00 Cholecalciferol (Vitamin D) 3,000 unit DAILY PO Last administered on 12/17/16 09:46; Admin Dose 3,000 UNIT; Start 12/11/16 at 09:00 Docusate Sodium (Colace) 100 mg BID PRN PO CONSTIPATION; Start 12/11/16 at 00: 00 Levetiracetam (Keppra) 750 mg BID PO Last administered on 12/17/16 09:45; Admin Dose 750 MG; Start 12/11/16 at 09:00 Magnesium Hydroxide (Milk Of Mag) 30 ml Q24H PRN PO CONSTIPATION; Start at 00:00 Pantoprazole 40 mg 40 mg DAILY@06 PO Last administered on 12/17/16 05:33; Admin Dose 40 MG; Start 12/11/16 at 06:00 Imipenem/ Cilastatin Sodium (Primaxin 250 Mg/ 100 ml (Pmx)) 100 ml @ 100 mls/ hr Q12 IVPB Last administered on 12/17/16 09:54; Admin Dose 100 MLS/HR; Start 12/11/16 at 09:00 Donepezil HCl (Aricept) 10 mg DAILY PO Last administered on 12/17/16 09:46; Admin Dose 10 MG; Start 12/11/16 at 09:00 NEFTALI KEN Dec 17, 2016 18:47
[2016-12-17 19:39] VITALS: BP 87/53; RESP 18
[2016-12-18] MEDS: PANTOPRAZOLE (EC) 40 MG TAB PO SCH (05:48)
[2016-12-18 06:09] LABS: POTASSIUM 4.5 mmol/L (3.5-5.1)
[2016-12-18 06:11] LABS: CREATININE 2.08 mg/dl (0.44-1.00)
[2016-12-18 06:12] LABS: CALCIUM 8.8 mg/dl (8.4-10.2)
[2016-12-18 07:21] VITALS: BP 110/63; RESP 20
[2016-12-18] MEDS: LEVETIRACETAM 750 MG TAB PO SCH ×2 (08:42→22:03)
[2016-12-18] MEDS: IMIPENEM-CILAST 250MG IV (PMX) 100 ML IVPB SCH ×2 (08:42→22:03)
[2016-12-18] MEDS: ASPIRIN 81 MG TAB PO SCH (08:43)
[2016-12-18] MEDS: CHOLECALCIFEROL 1,000 UNIT TAB PO SCH (08:44)
[2016-12-18] MEDS: ASCORBIC ACID 500 MG TAB PO SCH ×2 (08:44→22:03)
[2016-12-18] MEDS: DONEPEZIL 10 MG TAB PO SCH (08:45)
[2016-12-18] MEDS: ENOXAPARIN 30 MG/0.3 ML SYG SC SCH (09:39)
[2016-12-18] MEDS: SOD CHLORIDE 0.45% 1,000 ML IV SCH ×3 (12:30→17:45)
--- NOTE | 2016-12-18 14:52 | PN ---
Date/Time of Note Date/Time of Note DATE: 12/18/16 TIME: 14:50 Assessment/Plan VTE Prophylaxis VTE Prophylaxis Intervention: SCD's Lines/Catheters IV [facility] Type (from [facility]): Saline Lock Urinary Cath still in place: No Assessment/Plan Chief Complaint/Hosp Course ASSESSMENT AND PLAN: 1. E. coli ESBL urinary tract infection per urinalysis. F/up on urine culture. Continue patient on Primaxin. 2. Dehydration. Continue IV fluids. Monitor electrolytes. 3. Acute kidney injury secondary to dehydration on top of chronic kidney disease. Continue to monitor BUN and creatinine. Dr Marcum in nephrology consult. Continue IV fluids. 4. Dementia. Continue Aricept. 5. Hypothyroidism. Continue Synthroid. 6. History of seizure disorder. Continue Keppra. 7. History of cerebrovascular accident. Continue patient on aspirin. Continue Lovenox for deep venous thrombosis prophylaxis and Protonix for peptic ulcer disease prophylaxis. Further recommendations based on clinical course. Plan of care discussed with Dr. Marcum. Problems: Subjective 24 Hr Interval Summary Free Text/Dictation No acute events overnight, patient looks comfortable, denies nausea vomiting. Exam/Review of Systems Vital Signs Vitals Vital Signs Date Time Temp Pulse Resp B/P Pulse Ox O2 Delivery O2 Flow Rate FiO2 12/18/16 07:21 98.7 86 20 110/63 97 Intake and Output 12/17/16 12/17/16 12/18/16 15:00 23:00 07:00 Intake Total 2680 ml 240 ml Output Total 600 ml 750 ml Balance 2080 ml -510 ml Exam GENERAL: Well-developed, well-nourished female currently is awake, alert. HEENT: Head is atraumatic, normocephalic. NECK: Supple. No cervical lymphadenopathy, no thyromegaly. CHEST: Lungs clear bilaterally. There is no rhonchi, wheezes, or rales noted. CARDIOVASCULAR: Normal S1, S2. No murmurs, gallops, clicks, rubs noted. ABDOMEN: Round, soft, nondistended, nontender. EXTREMITIES: No edema, clubbing, cyanosis. Pulses equal bilaterally 2+. SKIN: There is no rash, petechiae noted. NEUROLOGIC: The patient is awake, alert and oriented to name and situation. Results Result Diagram: 12/17/16 0640 12/18/16 0527 Results 24 hrs Laboratory Tests Test 12/18/16 05:27 Anion Gap 16 Blood Urea Nitrogen 39 H Calcium Level 8.8 Carbon Dioxide Level 21 Chloride Level 113 H Creatinine 2.08 H Glucose Level 79 Potassium Level 4.5 Sodium Level 145 H Medications Medications Current Medications Miscellaneous Information (* Miscellaneous Pharmacy Order) PRIMAXIN PER PHARMACY ONCE XX ; Start 12/11/16 at 00:00 Enoxaparin Sodium (Lovenox) 30 mg DAILY SC Last administered on 12/18/16 09:39 ; Admin Dose 30 MG; Start 12/11/16 at 09:00 Morphine Sulfate (morphine) 2 mg Q2H PRN IV PAIN; Start 12/11/16 at 00:00 Ondansetron HCl (Zofran Inj) 4 mg Q6H PRN IV NAUSEA AND/OR VOMITING Last administered on 12/13/16 10:22; Admin Dose 4 MG; Start 12/11/16 at 00:00 Acetaminophen (Tylenol Tab) 650 mg Q4H PRN PO FOR MILD PAIN ; Start 12/11 at 00:00 Ascorbic Acid (Vitamin C) 500 mg BID PO Last administered on 12/18/16 08:44; Admin Dose 500 MG; Start 12/11/16 at 09:00 Aspirin (Aspirin) 81 mg DAILY PO Last administered on 12/18/16 08:43; Admin Dose 81 MG; Start 12/11/16 at 09:00 Bisacodyl (Dulcolax Supp) 10 mg Q24H PRN [place] CONSTIPATION; Start 12/11/16 at 00: 00 Cholecalciferol (Vitamin D) 3,000 unit DAILY PO Last administered on 12/18/16 08:44; Admin Dose 3,000 UNIT; Start 12/11/16 at 09:00 Docusate Sodium (Colace) 100 mg BID PRN PO CONSTIPATION; Start 12/11/16 at 00: 00 Levetiracetam (Keppra) 750 mg BID PO Last administered on 12/18/16 08:42; Admin Dose 750 MG; Start 12/11/16 at 09:00 Magnesium Hydroxide (Milk Of Mag) 30 ml Q24H PRN PO CONSTIPATION; Start at 00:00 Pantoprazole 40 mg 40 mg DAILY@06 PO Last administered on 12/18/16 05:48; Admin Dose 40 MG; Start 12/11/16 at 06:00 Imipenem/ Cilastatin Sodium (Primaxin 250 Mg/ 100 ml (Pmx)) 100 ml @ 100 mls/ hr Q12 IVPB Last administered on 12/18/16 08:42; Admin Dose 100 MLS/HR; Start 12/11/16 at 09:00 Donepezil HCl 10 mg 10 mg DAILY PO Last administered on 12/18/16 08:45; Admin Dose 10 MG; Start 12/11/16 at 09:00 Sodium Chloride (1/2 NS) 1,000 ml @ 50 mls/hr Q20H IV ; Start 12/18/16 at 12:30 NEFTALI KEN Dec 18, 2016 14:52
[2016-12-18 20:30] VITALS: BP 100/52; RESP 16
[2016-12-19] MEDS: PANTOPRAZOLE (EC) 40 MG TAB PO SCH (06:27)
[2016-12-19] MEDS: LEVOTHYROXINE 100 MCG TAB PO SCH (06:27)
[2016-12-19 07:54] VITALS: BP 112/68; RESP 19
[2016-12-19] MEDS: SOD CHLORIDE 0.45% 1,000 ML IV SCH (08:30)
[2016-12-19] MEDS: ASCORBIC ACID 500 MG TAB PO SCH ×2 (09:22→20:30)
[2016-12-19] MEDS: IMIPENEM-CILAST 250MG IV (PMX) 100 ML IVPB SCH (09:22)
[2016-12-19] MEDS: ASPIRIN 81 MG TAB PO SCH (09:23)
[2016-12-19] MEDS: LEVETIRACETAM 750 MG TAB PO SCH ×2 (09:24→20:30)
[2016-12-19] MEDS: DONEPEZIL 10 MG TAB PO SCH (09:24)
[2016-12-19] MEDS: CHOLECALCIFEROL 1,000 UNIT TAB PO SCH (09:24)
[2016-12-19] MEDS: ENOXAPARIN 30 MG/0.3 ML SYG SC SCH (09:41)
[2016-12-19 10:18] LABS: POTASSIUM 4.5 mmol/L (3.5-5.1)
[2016-12-19 10:20] LABS: CREATININE 2.02 mg/dl (0.44-1.00)
[2016-12-19 10:21] LABS: CALCIUM 9.2 mg/dl (8.4-10.2)
[2016-12-19] MEDS ORDERED: DEXTROSE 5% 1,000 ML IV SCH (14:30)
--- NOTE | 2016-12-19 16:40 | PN ---
Date/Time of Note Date/Time of Note DATE: 12/19/16 TIME: 16:37 Assessment/Plan VTE Prophylaxis VTE Prophylaxis Intervention: SCD's Lines/Catheters IV [facility] Type (from [facility]): Peripheral IV Urinary Cath still in place: No Assessment/Plan Chief Complaint/Hosp Course ASSESSMENT AND PLAN: 1. E. coli ESBL urinary tract infection per urinalysis, s/p treatment. 2. Dehydration, resolved. Continue IV fluids. Monitor electrolytes. 3. Acute kidney injury secondary to dehydration on top of chronic kidney disease. Continue to monitor BUN and creatinine. Dr Marcum in nephrology consult. Continue IV fluids. 4. Dementia. Continue Aricept. 5. Hypothyroidism. Continue Synthroid. 6. History of seizure disorder. Continue Keppra. 7. History of cerebrovascular accident. Continue patient on aspirin. Continue Lovenox for deep venous thrombosis prophylaxis and Protonix for peptic ulcer disease prophylaxis. Anticipate discharge home tomorrow is renal function improved. Further recommendations based on clinical course. Plan of care discussed with Dr. Marcum. Problems: Subjective 24 Hr Interval Summary Free Text/Dictation Patient denies any fever nausea vomiting denies dysuria, slight increase in creatinine for last 2 days, will DC antibiotics, continue IV fluids per nephrology recommendation, monitor BUN and creatinine. Exam/Review of Systems Vital Signs Vitals Vital Signs Date Time Temp Pulse Resp B/P Pulse Ox O2 Delivery O2 Flow Rate FiO2 12/19/16 07:54 98.2 86 19 112/68 96 Intake and Output 12/18/16 12/18/16 12/19/16 15:00 23:00 07:00 Intake Total 2320 ml 1230 ml 870 ml Output Total 900 ml 1150 ml Balance 2320 ml 330 ml -280 ml Exam GENERAL: Well-developed, well-nourished female currently is awake, alert. HEENT: Head is atraumatic, normocephalic. NECK: Supple. No cervical lymphadenopathy, no thyromegaly. CHEST: Lungs clear bilaterally. There is no rhonchi, wheezes, or rales noted. CARDIOVASCULAR: Normal S1, S2. No murmurs, gallops, clicks, rubs noted. ABDOMEN: Round, soft, nondistended, nontender. EXTREMITIES: No edema, clubbing, cyanosis. Pulses equal bilaterally 2+. SKIN: There is no rash, petechiae noted. NEUROLOGIC: The patient is awake, alert and oriented to name and situation. Results Result Diagram: 12/17/16 0640 12/19/16 0939 Results 24 hrs Laboratory Tests Test 12/19/16 09:39 Anion Gap 18 H Blood Urea Nitrogen 42 H Calcium Level 9.2 Carbon Dioxide Level 22 Chloride Level 111 H Creatinine 2.02 H Glucose Level 72 Potassium Level 4.5 Sodium Level 146 H Medications Medications Current Medications Miscellaneous Information (* Miscellaneous Pharmacy Order) PRIMAXIN PER PHARMACY ONCE XX ; Start 12/11/16 at 00:00 Enoxaparin Sodium (Lovenox) 30 mg DAILY SC Last administered on 12/19/16 09:41 ; Admin Dose 30 MG; Start 12/11/16 at 09:00 Morphine Sulfate (morphine) 2 mg Q2H PRN IV PAIN; Start 12/11/16 at 00:00 Ondansetron HCl (Zofran Inj) 4 mg Q6H PRN IV NAUSEA AND/OR VOMITING Last administered on 12/13/16 10:22; Admin Dose 4 MG; Start 12/11/16 at 00:00 Acetaminophen (Tylenol Tab) 650 mg Q4H PRN PO FOR MILD PAIN -03/11; Start 12/11 at 00:00 Ascorbic Acid (Vitamin C) 500 mg BID PO Last administered on 12/19/16 09:22; Admin Dose 500 MG; Start 12/11/16 at 09:00 Aspirin (Aspirin) 81 mg DAILY PO Last administered on 12/19/16 09:23; Admin Dose 81 MG; Start 12/11/16 at 09:00 Bisacodyl (Dulcolax Supp) 10 mg Q24H PRN [place] CONSTIPATION; Start 12/11/16 at 00: 00 Cholecalciferol (Vitamin D) 3,000 unit DAILY PO Last administered on 12/19/16 09:24; Admin Dose 3,000 UNIT; Start 12/11/16 at 09:00 Docusate Sodium (Colace) 100 mg BID PRN PO CONSTIPATION; Start 12/11/16 at 00: 00 Levetiracetam (Keppra) 750 mg BID PO Last administered on 12/19/16 09:24; Admin Dose 750 MG; Start 12/11/16 at 09:00 Magnesium Hydroxide (Milk Of Mag) 30 ml Q24H PRN PO CONSTIPATION; Start at 00:00 Pantoprazole 40 mg 40 mg DAILY@06 PO Last administered on 12/19/16 06:27; Admin Dose 40 MG; Start 12/11/16 at 06:00 Imipenem/ Cilastatin Sodium (Primaxin 250 Mg/ 100 ml (Pmx)) 100 ml @ 100 mls/ hr Q12 IVPB Last administered on 12/19/16 09:22; Admin Dose 100 MLS/HR; Start 12/11/16 at 09:00 Donepezil HCl 10 mg 10 mg DAILY PO Last administered on 12/19/16 09:24; Admin Dose 10 MG; Start 12/11/16 at 09:00 Dextrose (D5W) 1,000 ml @ 50 mls/hr Q20H IV Last administered on 12/19/16 14: 48; Admin Dose 50 MLS/HR; Start 12/19/16 at 14:30 NEFTALI KEN Dec 19, 2016 16:40
[2016-12-19 21:06] VITALS: BP 118/56; RESP 20
[2016-12-19 21:08] VITALS: BP 116/58; RESP 20
[2016-12-20] MEDS: LEVOTHYROXINE 100 MCG TAB PO SCH (06:01)
[2016-12-20] MEDS: PANTOPRAZOLE (EC) 40 MG TAB PO SCH (06:01)
[2016-12-20 07:30] VITALS: BP 84/41; RESP 21
[2016-12-20] MEDS: ASCORBIC ACID 500 MG TAB PO SCH ×2 (08:29→21:08)
[2016-12-20] MEDS: DONEPEZIL 10 MG TAB PO SCH (08:29)
[2016-12-20] MEDS: ASPIRIN 81 MG TAB PO SCH (08:29)
[2016-12-20] MEDS: LEVETIRACETAM 750 MG TAB PO SCH ×2 (08:29→21:08)
[2016-12-20] MEDS: CHOLECALCIFEROL 1,000 UNIT TAB PO SCH (08:29)
[2016-12-20 08:31] LABS: POTASSIUM 4.6 mmol/L (3.5-5.1)
[2016-12-20 08:33] LABS: CREATININE 2.09 mg/dl (0.44-1.00)
[2016-12-20 08:34] LABS: CALCIUM 8.6 mg/dl (8.4-10.2)
[2016-12-20] MEDS: ENOXAPARIN 30 MG/0.3 ML SYG SC SCH (08:38)
--- NOTE | 2016-12-20 11:02 | CONS ---
Date/Time of Note Date/Time of Note DATE: 12/20/16 TIME: 10:56 Consultation Date/Type/Reason Admit Date/Time Dec 10, 2016 at 22:20 Initial Consult Date 12/12/16 Type of Consultation: Nephrology Reason for Consultation will add Tums for mild acidosis And dc IV Fluids Referring Provider: NEFTALI KEN 24 HR Interval Summary Constitutional: improved Exam/Review of Systems Vital Signs Vitals Vital Signs Date Time Temp Pulse Resp B/P Pulse Ox O2 Delivery O2 Flow Rate FiO2 12/20/16 07:30 98.3 108 21 84/41 95 Intake and Output 12/19/16 12/19/16 12/20/16 15:00 23:00 07:00 Intake Total 400 ml 880 ml 900 ml Output Total 500 ml 1000 ml Balance 400 ml 380 ml -100 ml Exam Constitutional: alert, oriented Psych: no complaints ENMT: nl external ears & nose Respiratory: clear to auscultation Cardiovascular: regular rate and rhythm Gastrointestinal: soft Extremities: normal pulses Neurological: INTENSIVE CARE MEDICINE SPECIALIST II-XII intact Additional Comments Creat seems to be reaching the baseline Results Result Diagram: 12/17/16 0640 12/20/16 0710 Results 24 hrs Laboratory Tests Test 12/20/16 07:10 Anion Gap 19 H Blood Urea Nitrogen 44 H Calcium Level 8.6 Carbon Dioxide Level 19 L Chloride Level 106 Creatinine 2.09 H Glucose Level 99 Potassium Level 4.6 Sodium Level 139 Medications Medications Current Medications Miscellaneous Information (* Miscellaneous Pharmacy Order) PRIMAXIN PER PHARMACY ONCE XX ; Start 12/11/16 at 00:00 Enoxaparin Sodium (Lovenox) 30 mg DAILY SC Last administered on 12/20/16 08:38 ; Admin Dose 30 MG; Start 12/11/16 at 09:00 Morphine Sulfate (morphine) 2 mg Q2H PRN IV PAIN; Start 12/11/16 at 00:00 Ondansetron HCl (Zofran Inj) 4 mg Q6H PRN IV NAUSEA AND/OR VOMITING Last administered on 12/13/16 10:22; Admin Dose 4 MG; Start 12/11/16 at 00:00 Acetaminophen (Tylenol Tab) 650 mg Q4H PRN PO FOR MILD PAIN -03/11; Start 12/11 at 00:00 Ascorbic Acid (Vitamin C) 500 mg BID PO Last administered on 12/20/16 08:29; Admin Dose 500 MG; Start 12/11/16 at 09:00 Aspirin (Aspirin) 81 mg DAILY PO Last administered on 12/20/16 08:29; Admin Dose 81 MG; Start 12/11/16 at 09:00 Bisacodyl (Dulcolax Supp) 10 mg Q24H PRN [place] CONSTIPATION; Start 12/11/16 at 00: 00 Cholecalciferol (Vitamin D) 3,000 unit DAILY PO Last administered on 12/20/16 08:29; Admin Dose 3,000 UNIT; Start 12/11/16 at 09:00 Docusate Sodium (Colace) 100 mg BID PRN PO CONSTIPATION; Start 12/11/16 at 00: 00 Levetiracetam (Keppra) 750 mg BID PO Last administered on 12/20/16 08:29; Admin Dose 750 MG; Start 12/11/16 at 09:00 Magnesium Hydroxide (Milk Of Mag) 30 ml Q24H PRN PO CONSTIPATION; Start at 00:00 Pantoprazole (Protonix Tab) 40 mg DAILY@06 PO Last administered on 12/20/16 06 :01; Admin Dose 40 MG; Start 12/11/16 at 06:00 Donepezil HCl 10 mg 10 mg DAILY PO Last administered on 12/20/16 08:29; Admin Dose 10 MG; Start 12/11/16 at 09:00 Dextrose (D5W) 1,000 ml @ 50 mls/hr Q20H IV Last administered on 12/19/16 14: 48; Admin Dose 50 MLS/HR; Start 12/19/16 at 14:30 LACY SAAVEDRA MD Dec 20, 2016 11:02
--- NOTE | 2016-12-20 11:46 | PN ---
Date/Time of Note Date/Time of Note DATE: 12/20/16 TIME: 11:46 Assessment/Plan VTE Prophylaxis VTE Prophylaxis Intervention: other Lines/Catheters IV Catheter Type (from Nrs): Peripheral IV Urinary Cath still in place: No Assessment/Plan Assessment/Plan 1. E. coli ESBL urinary tract infection per urinalysis, s/p treatment. 2. Hypotension - patient is asymptomatic, denies any dizziness - latest BP - 95/65 - Continue IV fluids. Monitor electrolytes. 3. Acute kidney injury secondary to dehydration on top of chronic kidney disease. Continue to monitor BUN and creatinine. 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 4. Dementia. Continue Aricept. 5. Hypothyroidism. Continue Synthroid. 6. History of seizure disorder. Continue Keppra. 7. History of cerebrovascular accident. Continue patient on aspirin. Continue Lovenox for deep venous thrombosis prophylaxis and Protonix for peptic ulcer disease prophylaxis. Anticipate discharge home tomorrow is renal function improved. Further recommendations based on clinical course. Plan of care discussed with Dr. Marcum. Exam/Review of Systems Vital Signs Vitals Vital Signs Date Time Temp Pulse Resp B/P Pulse Ox O2 Delivery O2 Flow Rate FiO2 12/20/16 07:30 98.3 108 21 84/41 95 Intake and Output 12/19/16 12/19/16 12/20/16 15:00 23:00 07:00 Intake Total 400 ml 880 ml 900 ml Output Total 500 ml 1000 ml Balance 400 ml 380 ml -100 ml Results Result Diagram: 12/17/16 0640 12/20/16 0710 Results 24 hrs Laboratory Tests Test 12/20/16 07:10 Anion Gap 19 H Blood Urea Nitrogen 44 H Calcium Level 8.6 Carbon Dioxide Level 19 L Chloride Level 106 Creatinine 2.09 H Glucose Level 99 Potassium Level 4.6 Sodium Level 139 Medications Medications Current Medications Miscellaneous Information (* Miscellaneous Pharmacy Order) PRIMAXIN PER PHARMACY ONCE XX ; Start 12/11/16 at 00:00 Enoxaparin Sodium (Lovenox) 30 mg DAILY SC Last administered on 12/20/16t 08:38 ; Admin Dose 30 MG; Start 12/11/16 at 09:00 Morphine Sulfate (morphine) 2 mg Q2H PRN IV PAIN; Start 12/11/16 at 00:00 Ondansetron HCl (Zofran Inj) 4 mg Q6H PRN IV NAUSEA AND/OR VOMITING Last administered on 12/13/16 10:22; Admin Dose 4 MG; Start 12/11/16 at 00:00 Acetaminophen (Tylenol Tab) 650 mg Q4H PRN PO FOR MILD PAIN ; Start 12/11 at 00:00 Ascorbic Acid (Vitamin C) 500 mg BID PO Last administered on 12/20/16 08:29; Admin Dose 500 MG; Start 12/11/16 at 09:00 Aspirin (Aspirin) 81 mg DAILY PO Last administered on 12/20/16 08:29; Admin Dose 81 MG; Start 12/11/16 at 09:00 Bisacodyl (Dulcolax Supp) 10 mg Q24H PRN [place] CONSTIPATION; Start 12/11/16 at 00: 00 Cholecalciferol (Vitamin D) 3,000 unit DAILY PO Last administered on 12/20/16 08:29; Admin Dose 3,000 UNIT; Start 12/11/16 at 09:00 Docusate Sodium (Colace) 100 mg BID PRN PO CONSTIPATION; Start 12/11/16 at 00: 00 Levetiracetam (Keppra) 750 mg BID PO Last administered on 12/20/16 08:29; Admin Dose 750 MG; Start 12/11/16 at 09:00 Magnesium Hydroxide (Milk Of Mag) 30 ml Q24H PRN PO CONSTIPATION; Start at 00:00 Pantoprazole (Protonix Tab) 40 mg DAILY@06 PO Last administered on 12/20/16 06 :01; Admin Dose 40 MG; Start 12/11/16 at 06:00 Donepezil HCl (Aricept) 10 mg DAILY PO Last administered on 12/20/16 08:29; Admin Dose 10 MG; Start 12/11/16 at 09:00 ROSHAN NEELY Dec 20, 2016 11:46
[2016-12-20 12:27] VITALS: BP 95/63; PULSE 102
[2016-12-20] MEDS: DEXTROSE 5%-0.45% NACL 1,000 ML IV SCH ×2 (12:30→21:15)
[2016-12-20] MEDS: CALCIUM CARBONATE 500 MG CHEW TAB PO SCH ×2 (12:45→18:30)
[2016-12-20 20:27] VITALS: BP 103/51; RESP 18
[2016-12-21 05:56] LABS: BASOPHILS % 0.2 % (0.0-2.0); EOSINOPHILS # 0.2 10^3/ul (0.0-0.5); EOSINOPHILS % 2.9 % (0.0-7.0); HEMOGLOBIN 10.2 g/dl (12.0-16.0); LYMPHOCYTES # 1.4 10^3/ul (0.8-2.9); LYMPHOCYTES % 18.5 % (15.0-51.0); MEAN CORPUSCULAR HEMOGLOBIN 29.9 pg (29.0-33.0); MEAN CORPUSCULAR HGB CONC 32.8 g/dl (32.0-37.0); MEAN CORPUSCULAR VOLUME 91.3 fl (82.0-101.0); MEAN PLATELET VOLUME 8.5 fl (7.4-10.4); MONOCYTE # 1.1 10^3/ul (0.3-0.9); MONOCYTES % 14.5 % (0.0-11.0); NEUTROPHIL # 4.8 10^3/ul (1.6-7.5); NEUTROPHILS % 63.9 % (39.0-77.0); PLATELET COUNT 215 10^3/UL (140-440); RED CELL DISTRIBUTION WIDTH 15.4 % (11.5-14.5); UNCORRECTED WBC 7.6 10^3/ul (4.8-10.8); WHITE BLOOD COUNT 7.6 10^3/ul (4.8-10.8)
[2016-12-21 06:08] LABS: POTASSIUM 4.5 mmol/L (3.5-5.1)
[2016-12-21 06:10] LABS: CREATININE 2.32 mg/dl (0.44-1.00)
[2016-12-21 06:11] LABS: CALCIUM 8.7 mg/dl (8.4-10.2)
[2016-12-21] MEDS: PANTOPRAZOLE (EC) 40 MG TAB PO SCH (06:16)
[2016-12-21] MEDS: LEVOTHYROXINE 100 MCG TAB PO SCH ×2 (06:16→08:54)
[2016-12-21 06:46] LABS: CONDITION 1; LH ANALYZER COMMENTS 1
[2016-12-21 07:48] VITALS: BP 98/50; RESP 18
--- NOTE | 2016-12-21 08:09 | CONS ---
Date/Time of Note Date/Time of Note DATE: 12/21/16 TIME: 08:09 Assessment/Plan Assessment/Plan Additional Assessment/Plan 66 yo female with 1. Recurrent Urinary tract infection 2. Dehydration 3. Acute kidney injury 2nd to above, baseline CKD stage IV 4. Dementia. 5. Hypothyroidism. 6. History of seizure disorder. 7. History of cerebrovascular accident. 8. B/L Non obstructing Renal Calculi Pt is non oliguric and electolytes are ok Cont gentle IVFs as needed. Renal dose to CKD stage IV, eGFR<30 Avoid nephrotoxic Rx if possible Keep MAPs>65mmHg Will cont to follow UO, electrolytes and renal function daily. Thank you for the opportunity to participate in the care of Ms Nation. Consultation Date/Type/Reason Admit Date/Time Dec 10, 2016 at 22:20 Initial Consult Date 12/12/16 Type of Consultation: Nephrology Referring Provider: NEFTALI KEN 24 HR Interval Summary Free Text/Dictation No new complaints, Good UO. Exam/Review of Systems Vital Signs Vitals Vital Signs Date Time Temp Pulse Resp B/P Pulse Ox O2 Delivery O2 Flow Rate FiO2 12/21/16 07:48 98.6 104 18 98/50 95 Intake and Output 12/20/16 12/20/16 12/21/16 15:00 23:00 07:00 Intake Total 943 ml 540 ml Output Total 300 ml Balance 643 ml 540 ml Exam Constitutional: alert, No distress Eyes: EOMI Neck: No jvd Respiratory: clear to auscultation, No labored breathing Cardiovascular: regular rate and rhythm, No edema Gastrointestinal: non-tender, soft Extremities: No edema Neurological: lethargic Skin: No diaphoresis Results Result Diagram: 12/21/16 0515 12/21/16 0515 Results 24 hrs Laboratory Tests Test 12/21/16 05:15 Anion Gap 18 H Basophils # 0.0 Basophils % 0.2 Blood Morphology Comment Blood Urea Nitrogen 53 H Calcium Level 8.7 Carbon Dioxide Level 20 L Chloride Level 113 H Creatinine 2.32 H Eosinophils # 0.2 Eosinophils % 2.9 Glucose Level 89 Hematocrit 31.0 L Hemoglobin 10.2 L Lymphocytes # 1.4 Lymphocytes % 18.5 Mean Corpuscular Hemoglobin 29.9 Mean Corpuscular Hemoglobin Concent 32.8 Mean Corpuscular Volume 91.3 Mean Platelet Volume 8.5 Monocytes # 1.1 H Monocytes % 14.5 H Neutrophils # 4.8 Neutrophils % 63.9 Nucleated Red Blood Cells # 0.0 Nucleated Red Blood Cells % 0.0 Platelet Count 215 Potassium Level 4.5 Red Blood Count 3.40 L Red Cell Distribution Width 15.4 H Sodium Level 146 H White Blood Count 7.6 # Medications Medications Current Medications Miscellaneous Information (* Miscellaneous Pharmacy Order) PRIMAXIN PER PHARMACY ONCE XX ; Start 12/11/16 at 00:00 Enoxaparin Sodium (Lovenox) 30 mg DAILY SC Last administered on 12/20/16 08:38 ; Admin Dose 30 MG; Start 12/11/16 at 09:00 Morphine Sulfate (morphine) 2 mg Q2H PRN IV PAIN; Start 12/11/16 at 00:00 Ondansetron HCl (Zofran Inj) 4 mg Q6H PRN IV NAUSEA AND/OR VOMITING Last administered on 12/13/16 10:22; Admin Dose 4 MG; Start 12/11/16 at 00:00 Acetaminophen (Tylenol Tab) 650 mg Q4H PRN PO FOR MILD PAIN -03/11; Start 12/11 at 00:00 Ascorbic Acid (Vitamin C) 500 mg BID PO Last administered on 12/20/16 21:08; Admin Dose 500 MG; Start 12/11/16 at 09:00 Aspirin (Aspirin) 81 mg DAILY PO Last administered on 12/20/16 08:29; Admin Dose 81 MG; Start 12/11/16 at 09:00 Bisacodyl (Dulcolax Supp) 10 mg Q24H PRN [place] CONSTIPATION; Start 12/11/16 at 00: 00 Cholecalciferol (Vitamin D) 3,000 unit DAILY PO Last administered on 12/20/16 08:29; Admin Dose 3,000 UNIT; Start 12/11/16 at 09:00 Docusate Sodium (Colace) 100 mg BID PRN PO CONSTIPATION; Start 12/11/16 at 00: 00 Levetiracetam (Keppra) 750 mg BID PO Last administered on 12/20/16 21:08; Admin Dose 750 MG; Start 12/11/16 at 09:00 Magnesium Hydroxide (Milk Of Mag) 30 ml Q24H PRN PO CONSTIPATION; Start at 00:00 Pantoprazole (Protonix Tab) 40 mg DAILY@06 PO Last administered on 12/21/16 06 :16; Admin Dose 40 MG; Start 12/11/16 at 06:00 Donepezil HCl 10 mg 10 mg DAILY PO Last administered on 12/20/16 08:29; Admin Dose 10 MG; Start 12/11/16 at 09:00 Dextrose/Sodium Chloride (D5-1/2ns) 1,000 ml @ 50 mls/hr Q20H IV Last administered on 12/20/16 21:15; Admin Dose 50 MLS/HR; Start 12/20/16 at 12:30 NANI COLEMAN MD Dec 21, 2016 08:09
[2016-12-21] MEDS: DEXTROSE 5%-0.45% NACL 1,000 ML IV SCH ×2 (08:30→18:25)
[2016-12-21] MEDS: CHOLECALCIFEROL 1,000 UNIT TAB PO SCH (08:54)
[2016-12-21] MEDS: DONEPEZIL 10 MG TAB PO SCH (08:54)
[2016-12-21] MEDS: ASCORBIC ACID 500 MG TAB PO SCH ×2 (08:54→22:03)
[2016-12-21] MEDS: LEVETIRACETAM 750 MG TAB PO SCH ×2 (08:54→22:03)
[2016-12-21] MEDS: CALCIUM CARBONATE 500 MG CHEW TAB PO SCH ×3 (08:54→17:39)
[2016-12-21] MEDS: ASPIRIN 81 MG TAB PO SCH (08:54)
[2016-12-21] MEDS: ENOXAPARIN 30 MG/0.3 ML SYG SC SCH (09:00)
--- NOTE | 2016-12-21 14:15 | PN ---
Date/Time of Note Date/Time of Note DATE: 12/21/16 TIME: 14:14 Assessment/Plan VTE Prophylaxis VTE Prophylaxis Intervention: other Lines/Catheters [facility] Peripheral IV Urinary Cath still in place: No Assessment/Plan Chief Complaint/Hosp Course 1. E. coli ESBL urinary tract infection per urinalysis, s/p treatment. 2. Hypotension - patient is asymptomatic, denies any dizziness - latest BP - 95/65 - Continue IV fluids. Monitor electrolytes. 3. Acute kidney injury secondary to dehydration on top of chronic kidney disease. Continue to monitor BUN and creatinine. 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 4. Dementia. Continue Aricept. 5. Hypothyroidism. Continue Synthroid. 6. History of seizure disorder. Continue Keppra. 7. History of cerebrovascular accident. Continue patient on aspirin. Continue Lovenox for deep venous thrombosis prophylaxis and Protonix for peptic ulcer disease prophylaxis. Problems: Subjective 24 Hr Interval Summary Free Text/Dictation Patient has no complaints Exam/Review of Systems Vital Signs Vitals Vital Signs Date Time Temp Pulse Resp B/P Pulse Ox O2 Delivery O2 Flow Rate FiO2 12/21/16 07:48 98.6 104 18 98/50 95 Intake and Output 12/20/16 12/20/16 12/21/16 15:00 23:00 07:00 Intake Total 943 ml 540 ml Output Total 300 ml Balance 643 ml 540 ml Exam Head: atraumatic, normocephalic Neck: supple Respiratory: clear to auscultation Cardiovascular: regular rate and rhythm Gastrointestinal: non-tender, soft Results Result Diagram: 12/21/16 0515 12/21/16 0515 Results 24 hrs Laboratory Tests Test 12/21/16 05:15 Anion Gap 18 H Basophils # 0.0 Basophils % 0.2 Blood Morphology Comment Blood Urea Nitrogen 53 H Calcium Level 8.7 Carbon Dioxide Level 20 L Chloride Level 113 H Creatinine 2.32 H Eosinophils # 0.2 Eosinophils % 2.9 Glucose Level 89 Hematocrit 31.0 L Hemoglobin 10.2 L Lymphocytes # 1.4 Lymphocytes % 18.5 Mean Corpuscular Hemoglobin 29.9 Mean Corpuscular Hemoglobin Concent 32.8 Mean Corpuscular Volume 91.3 Mean Platelet Volume 8.5 Monocytes # 1.1 H Monocytes % 14.5 H Neutrophils # 4.8 Neutrophils % 63.9 Nucleated Red Blood Cells # 0.0 Nucleated Red Blood Cells % 0.0 Platelet Count 215 Potassium Level 4.5 Red Blood Count 3.40 L Red Cell Distribution Width 15.4 H Sodium Level 146 H White Blood Count 7.6 # Medications Medications Current Medications Miscellaneous Information (* Miscellaneous Pharmacy Order) PRIMAXIN PER PHARMACY ONCE XX ; Start 12/11/16 at 00:00 Enoxaparin Sodium (Lovenox) 30 mg DAILY SC Last administered on 12/20/16 08:38 ; Admin Dose 30 MG; Start 12/11/16 at 09:00 Morphine Sulfate (morphine) 2 mg Q2H PRN IV PAIN; Start 12/11/16 at 00:00 Ondansetron HCl (Zofran Inj) 4 mg Q6H PRN IV NAUSEA AND/OR VOMITING Last administered on 12/13/16 10:22; Admin Dose 4 MG; Start 12/11/16 at 00:00 Acetaminophen (Tylenol Tab) 650 mg Q4H PRN PO FOR MILD PAIN ; Start 12/11 at 00:00 Ascorbic Acid (Vitamin C) 500 mg BID PO Last administered on 12/21/16 08:54; Admin Dose 500 MG; Start 12/11/16 at 09:00 Aspirin (Aspirin) 81 mg DAILY PO Last administered on 12/21/16 08:54; Admin Dose 81 MG; Start 12/11/16 at 09:00 Bisacodyl (Dulcolax Supp) 10 mg Q24H PRN [place] CONSTIPATION; Start 12/11/16 at 00: 00 Cholecalciferol (Vitamin D) 3,000 unit DAILY PO Last administered on 12/21/16 08:54; Admin Dose 3,000 UNIT; Start 12/11/16 at 09:00 Docusate Sodium (Colace) 100 mg BID PRN PO CONSTIPATION; Start 12/11/16 at 00: 00 Levetiracetam (Keppra) 750 mg BID PO Last administered on 12/21/16 08:54; Admin Dose 750 MG; Start 12/11/16 at 09:00 Magnesium Hydroxide (Milk Of Mag) 30 ml Q24H PRN PO CONSTIPATION; Start at 00:00 Pantoprazole (Protonix Tab) 40 mg DAILY@06 PO Last administered on 12/21/16 06 :16; Admin Dose 40 MG; Start 12/11/16 at 06:00 Donepezil HCl 10 mg 10 mg DAILY PO Last administered on 12/21/16 08:54; Admin Dose 10 MG; Start 12/11/16 at 09:00 Dextrose/Sodium Chloride (D5-1/2ns) 1,000 ml @ 50 mls/hr Q20H IV Last administered on 12/20/16 21:15; Admin Dose 50 MLS/HR; Start 12/20/16 at 12:30 DEANGELO CHEW Dec 21, 2016 14:15
[2016-12-21 19:00] VITALS: BP 100/54; RESP 16
[2016-12-22] MEDS: DEXTROSE 5%-0.45% NACL 1,000 ML IV SCH ×2 (04:30→22:22)
[2016-12-22] MEDS: LEVOTHYROXINE 100 MCG TAB PO SCH (06:19)
[2016-12-22] MEDS: PANTOPRAZOLE (EC) 40 MG TAB PO SCH (06:19)
[2016-12-22 07:03] LABS: BASOPHILS % 0.6 % (0.0-2.0); EOSINOPHILS # 0.3 10^3/ul (0.0-0.5); EOSINOPHILS % 4.9 % (0.0-7.0); HEMATOCRIT 30.1 % (37.0-47.0); HEMOGLOBIN 9.8 g/dl (12.0-16.0); LYMPHOCYTES # 1.5 10^3/ul (0.8-2.9); LYMPHOCYTES % 25.8 % (15.0-51.0); MEAN CORPUSCULAR HEMOGLOBIN 29.9 pg (29.0-33.0); MEAN CORPUSCULAR HGB CONC 32.5 g/dl (32.0-37.0); MEAN CORPUSCULAR VOLUME 91.8 fl (82.0-101.0); MEAN PLATELET VOLUME 8.5 fl (7.4-10.4); MONOCYTE # 0.8 10^3/ul (0.3-0.9); MONOCYTES % 14.5 % (0.0-11.0); NEUTROPHIL # 3.1 10^3/ul (1.6-7.5); NEUTROPHILS % 54.2 % (39.0-77.0); PLATELET COUNT 207 10^3/UL (140-440); RED BLOOD COUNT 3.28 10^6/ul (4.20-5.40); RED CELL DISTRIBUTION WIDTH 15.8 % (11.5-14.5); UNCORRECTED WBC 5.8 10^3/ul (4.8-10.8); WHITE BLOOD COUNT 5.8 10^3/ul (4.8-10.8)
[2016-12-22 07:11] LABS: CONDITION 1; LH ANALYZER COMMENTS 1
[2016-12-22 07:39] LABS: POTASSIUM 4.8 mmol/L (3.5-5.1)
[2016-12-22 07:41] LABS: CREATININE 2.05 mg/dl (0.44-1.00)
[2016-12-22 07:42] LABS: CALCIUM 8.8 mg/dl (8.4-10.2)
[2016-12-22 08:00] VITALS: BP 97/64
[2016-12-22 08:34] VITALS: BP 84/53; RESP 18
[2016-12-22] MEDS: ASPIRIN 81 MG TAB PO SCH (09:46)
[2016-12-22] MEDS: CHOLECALCIFEROL 1,000 UNIT TAB PO SCH (09:46)
[2016-12-22] MEDS: DONEPEZIL 10 MG TAB PO SCH (09:46)
[2016-12-22] MEDS: CALCIUM CARBONATE 500 MG CHEW TAB PO SCH ×3 (09:46→17:44)
[2016-12-22] MEDS: LEVETIRACETAM 750 MG TAB PO SCH ×2 (09:46→20:17)
[2016-12-22] MEDS: ASCORBIC ACID 500 MG TAB PO SCH ×2 (09:46→20:17)
[2016-12-22] MEDS: ENOXAPARIN 30 MG/0.3 ML SYG SC SCH (09:56)
--- NOTE | 2016-12-22 10:19 | PN ---
Date/Time of Note Date/Time of Note DATE: 12/22/16 TIME: 10:18 Assessment/Plan VTE Prophylaxis VTE Prophylaxis Intervention: other Lines/Catheters IV C[facility]ter Type (from [facility]): Peripheral IV Urinary Cath still in place: No Assessment/Plan Chief Complaint/Hosp Course 1. E. coli ESBL urinary tract infection per urinalysis, s/p treatment. 2. Hypotension - patient is asymptomatic, denies any dizziness - latest BP - 95/65 - Continue IV fluids. Monitor electrolytes. 3. Acute kidney injury secondary to dehydration on top of chronic kidney disease. Continue to monitor BUN and creatinine. 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 4. Dementia. Continue Aricept. 5. Hypothyroidism. Continue Synthroid. 6. History of seizure disorder. Continue Keppra. 7. History of cerebrovascular accident. Continue patient on aspirin. Continue Lovenox for deep venous thrombosis prophylaxis and Protonix for peptic ulcer disease prophylaxis. Problems: Subjective 24 Hr Interval Summary Free Text/Dictation Unable to interview the patient as she is not in the room Exam/Review of Systems Vital Signs Vitals Vital Signs Date Time Temp Pulse Resp B/P Pulse Ox O2 Delivery O2 Flow Rate FiO2 12/22/16 08:34 98.3 86 18 84/53 95 Intake and Output 12/21/16 12/21/16 12/22/16 15:00 23:00 07:00 Intake Total 1860 ml 750 ml Balance 1860 ml 750 ml Exam Unable to examine the patient as she is not in room Results Result Diagram: 12/22/16 0547 12/22/16 0547 Results 24 hrs Laboratory Tests Test 12/22/16 05:47 Anion Gap 18 H Basophils # 0.0 Basophils % 0.6 Blood Morphology Comment Blood Urea Nitrogen 53 H Calcium Level 8.8 Carbon Dioxide Level 17 L Chloride Level 116 H Creatinine 2.05 H Eosinophils # 0.3 Eosinophils % 4.9 Glucose Level 86 Hematocrit 30.1 L Hemoglobin 9.8 L Lymphocytes # 1.5 Lymphocytes % 25.8 Mean Corpuscular Hemoglobin 29.9 Mean Corpuscular Hemoglobin Concent 32.5 Mean Corpuscular Volume 91.8 Mean Platelet Volume 8.5 Monocytes # 0.8 Monocytes % 14.5 H Neutrophils # 3.1 Neutrophils % 54.2 Nucleated Red Blood Cells # 0.0 Nucleated Red Blood Cells % 0.0 Platelet Count 207 Potassium Level 4.8 Red Blood Count 3.28 L Red Cell Distribution Width 15.8 H Sodium Level 146 H White Blood Count 5.8 # Medications Medications Current Medications Miscellaneous Information (* Miscellaneous Pharmacy Order) PRIMAXIN PER PHARMACY ONCE XX ; Start 12/11/16 at 00:00 Enoxaparin Sodium (Lovenox) 30 mg DAILY SC Last administered on 12/22/16 09:56 ; Admin Dose 30 MG; Start 12/11/16 at 09:00 Morphine Sulfate (morphine) 2 mg Q2H PRN IV PAIN; Start 12/11/16 at 00:00 Ondansetron HCl (Zofran Inj) 4 mg Q6H PRN IV NAUSEA AND/OR VOMITING Last administered on 12/13/16 10:22; Admin Dose 4 MG; Start 12/11/16 at 00:00 Acetaminophen (Tylenol Tab) 650 mg Q4H PRN PO FOR MILD PAIN -03/11; Start 12/11 at 00:00 Ascorbic Acid (Vitamin C) 500 mg BID PO Last administered on 12/22/16 09:46; Admin Dose 500 MG; Start 12/11/16 at 09:00 Aspirin (Aspirin) 81 mg DAILY PO Last administered on 12/22/16 09:46; Admin Dose 81 MG; Start 12/11/16 at 09:00 Bisacodyl (Dulcolax Supp) 10 mg Q24H PRN [place] CONSTIPATION; Start 12/11/16 at 00: 00 Cholecalciferol (Vitamin D) 3,000 unit DAILY PO Last administered on 12/22/16 09:46; Admin Dose 3,000 UNIT; Start 12/11/16 at 09:00 Docusate Sodium (Colace) 100 mg BID PRN PO CONSTIPATION; Start 12/11/16 at 00: 00 Levetiracetam (Keppra) 750 mg BID PO Last administered on 12/22/16 09:46; Admin Dose 750 MG; Start 12/11/16 at 09:00 Magnesium Hydroxide (Milk Of Mag) 30 ml Q24H PRN PO CONSTIPATION; Start at 00:00 Pantoprazole (Protonix Tab) 40 mg DAILY@06 PO Last administered on 12/22/16 06 :19; Admin Dose 40 MG; Start 12/11/16 at 06:00 Donepezil HCl 10 mg 10 mg DAILY PO Last administered on 12/22/16 09:46; Admin Dose 10 MG; Start 12/11/16 at 09:00 Dextrose/Sodium Chloride (D5-1/2ns) 1,000 ml @ 50 mls/hr Q20H IV Last administered on 12/21/16 18:25; Admin Dose 50 MLS/HR; Start 12/20/16 at 12:30 DEANGELO CHEW Dec 22, 2016 10:19
[2016-12-22 20:07] VITALS: BP 85/53; RESP 18
[2016-12-22 23:10] VITALS: BP 116/67; RESP 18
[2016-12-23] MEDS: DEXTROSE 5%-0.45% NACL 1,000 ML IV SCH ×2 (00:30→23:47)
[2016-12-23] MEDS: PANTOPRAZOLE (EC) 40 MG TAB PO SCH (06:33)
[2016-12-23] MEDS: LEVOTHYROXINE 100 MCG TAB PO SCH (06:33)
[2016-12-23 07:42] VITALS: BP 104/57; RESP 20
[2016-12-23] MEDS: CHOLECALCIFEROL 1,000 UNIT TAB PO SCH (08:47)
[2016-12-23] MEDS: ASPIRIN 81 MG TAB PO SCH (08:47)
[2016-12-23] MEDS: LEVETIRACETAM 750 MG TAB PO SCH ×2 (08:47→21:23)
[2016-12-23] MEDS: CALCIUM CARBONATE 500 MG CHEW TAB PO SCH ×3 (08:47→18:10)
[2016-12-23] MEDS: ASCORBIC ACID 500 MG TAB PO SCH ×2 (08:47→21:23)
[2016-12-23] MEDS: ENOXAPARIN 30 MG/0.3 ML SYG SC SCH (08:48)
[2016-12-23] MEDS: DONEPEZIL 10 MG TAB PO SCH (08:48)
--- NOTE | 2016-12-23 11:30 | PN ---
Date/Time of Note Date/Time of Note DATE: 12/23/16 TIME: 11:30 Assessment/Plan VTE Prophylaxis VTE Prophylaxis Intervention: other Lines/Catheters IV Catheter Type (from [facility]): Peripheral IV Urinary Cath still in place: No Assessment/Plan Chief Complaint/Hosp Course 1. E. coli ESBL urinary tract infection per urinalysis, s/p treatment. 2. Hypotension - patient is asymptomatic, denies any dizziness - latest BP - 95/65 - Continue IV fluids. Monitor electrolytes. 3. Acute kidney injury secondary to dehydration on top of chronic kidney disease. Continue to monitor BUN and creatinine. 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 4. Dementia. Continue Aricept. 5. Hypothyroidism. Continue Synthroid. 6. History of seizure disorder. Continue Keppra. 7. History of cerebrovascular accident. Continue patient on aspirin. Continue Lovenox for deep venous thrombosis prophylaxis and Protonix for peptic ulcer disease prophylaxis. Problems: Subjective 24 Hr Interval Summary Free Text/Dictation Patient has no complaints Exam/Review of Systems Vital Signs Vitals Vital Signs Date Time Temp Pulse Resp B/P Pulse Ox O2 Delivery O2 Flow Rate FiO2 12/23/16 07:42 98.6 91 20 104/57 96 Intake and Output 12/22/16 12/22/16 12/23/16 15:00 23:00 07:00 Intake Total 1650 ml 360 ml Balance 1650 ml 360 ml Exam Constitutional: well developed Head: atraumatic, normocephalic Neck: supple Respiratory: clear to auscultation Cardiovascular: regular rate and rhythm Gastrointestinal: non-tender, soft Extremities: normal pulses Results Result Diagram: 12/22/16 0547 12/22/16 0547 Medications Medications Current Medications Miscellaneous Information (* Miscellaneous Pharmacy Order) PRIMAXIN PER PHARMACY ONCE XX ; Start 12/11/16 at 00:00 Enoxaparin Sodium (Lovenox) 30 mg DAILY SC Last administered on 12/22/16 09:56 ; Admin Dose 30 MG; Start 12/11/16 at 09:00 Morphine Sulfate (morphine) 2 mg Q2H PRN IV PAIN; Start 12/11/16 at 00:00 Ondansetron HCl (Zofran Inj) 4 mg Q6H PRN IV NAUSEA AND/OR VOMITING Last administered on 12/13/16 10:22; Admin Dose 4 MG; Start 12/11/16 at 00:00 Acetaminophen (Tylenol Tab) 650 mg Q4H PRN PO FOR MILD PAIN -03/11; Start 12/11 at 00:00 Ascorbic Acid (Vitamin C) 500 mg BID PO Last administered on 12/23/16 08:47; Admin Dose 500 MG; Start 12/11/16 at 09:00 Aspirin (Aspirin) 81 mg DAILY PO Last administered on 12/23/16 08:47; Admin Dose 81 MG; Start 12/11/16 at 09:00 Bisacodyl (Dulcolax Supp) 10 mg Q24H PRN [place] CONSTIPATION; Start 12/11/16 at 00: 00 Cholecalciferol (Vitamin D) 3,000 unit DAILY PO Last administered on 12/23/16 08:47; Admin Dose 3,000 UNIT; Start 12/11/16 at 09:00 Docusate Sodium (Colace) 100 mg BID PRN PO CONSTIPATION; Start 12/11/16 at 00: 00 Levetiracetam (Keppra) 750 mg BID PO Last administered on 12/23/16 08:47; Admin Dose 750 MG; Start 12/11/16 at 09:00 Magnesium Hydroxide (Milk Of Mag) 30 ml Q24H PRN PO CONSTIPATION; Start at 00:00 Pantoprazole (Protonix Tab) 40 mg DAILY@06 PO Last administered on 12/23/16 06 :33; Admin Dose 40 MG; Start 12/11/16 at 06:00 Donepezil HCl 10 mg 10 mg DAILY PO Last administered on 12/23/16 08:48; Admin Dose 10 MG; Start 12/11/16 at 09:00 Dextrose/Sodium Chloride (D5-1/2ns) 1,000 ml @ 50 mls/hr Q20H IV Last administered on 12/22/16 22:22; Admin Dose 50 MLS/HR; Start 12/20/16 at 12:30 DEANGELO CHEW Dec 23, 2016 11:30
[2016-12-23 19:26] VITALS: BP 94/55; RESP 20
[2016-12-24] MEDS: LEVOTHYROXINE 100 MCG TAB PO SCH (06:23)
[2016-12-24] MEDS: PANTOPRAZOLE (EC) 40 MG TAB PO SCH (06:23)
[2016-12-24 08:06] VITALS: BP 81/52; RESP 18
[2016-12-24 08:16] VITALS: BP 90/56; PULSE 87
[2016-12-24] MEDS: CALCIUM CARBONATE 500 MG CHEW TAB PO SCH ×3 (08:38→17:38)
[2016-12-24] MEDS: CHOLECALCIFEROL 1,000 UNIT TAB PO SCH (08:39)
[2016-12-24] MEDS: DONEPEZIL 10 MG TAB PO SCH (08:39)
[2016-12-24] MEDS: ASPIRIN 81 MG TAB PO SCH (08:39)
[2016-12-24] MEDS: LEVETIRACETAM 750 MG TAB PO SCH ×2 (08:39→21:31)
[2016-12-24] MEDS: ASCORBIC ACID 500 MG TAB PO SCH ×2 (08:39→21:31)
[2016-12-24] MEDS: ENOXAPARIN 30 MG/0.3 ML SYG SC SCH (08:52)
[2016-12-24 09:41] LABS: BASOPHILS % 0.6 % (0.0-2.0); EOSINOPHILS # 0.2 10^3/ul (0.0-0.5); EOSINOPHILS % 4.6 % (0.0-7.0); HEMOGLOBIN 10.5 g/dl (12.0-16.0); LYMPHOCYTES # 1.5 10^3/ul (0.8-2.9); LYMPHOCYTES % 29.5 % (15.0-51.0); MEAN CORPUSCULAR HEMOGLOBIN 29.9 pg (29.0-33.0); MEAN CORPUSCULAR HGB CONC 32.9 g/dl (32.0-37.0); MEAN PLATELET VOLUME 8.1 fl (7.4-10.4); MONOCYTE # 0.5 10^3/ul (0.3-0.9); MONOCYTES % 9.5 % (0.0-11.0); NEUTROPHIL # 2.9 10^3/ul (1.6-7.5); NEUTROPHILS % 55.8 % (39.0-77.0); PLATELET COUNT 290 10^3/UL (140-440); RED BLOOD COUNT 3.52 10^6/ul (4.20-5.40); RED CELL DISTRIBUTION WIDTH 14.9 % (11.5-14.5); UNCORRECTED WBC 5.2 10^3/ul (4.8-10.8); WHITE BLOOD COUNT 5.2 10^3/ul (4.8-10.8)
[2016-12-24 09:43] LABS: POTASSIUM 4.4 mmol/L (3.5-5.1)
[2016-12-24 09:46] LABS: CALCIUM 9.4 mg/dl (8.4-10.2); CREATININE 2.26 mg/dl (0.44-1.00)
[2016-12-24 10:10] LABS: CONDITION 1; LH ANALYZER COMMENTS 1
--- NOTE | 2016-12-24 15:29 | CONS ---
Date/Time of Note Date/Time of Note DATE: 12/24/16 TIME: 15:29 Assessment/Plan Assessment/Plan Additional Assessment/Plan 66 yo female with 1. Recurrent Urinary tract infection 2. Dehydration 3. Acute kidney injury 2nd to above, baseline CKD stage IV 4. Dementia. 5. Hypothyroidism. 6. History of seizure disorder. 7. History of cerebrovascular accident. 8. B/L Non obstructing Renal Calculi 9. Hypernatremia Repeat BMP in am Cont 1/2 NS IVFS Increase Free Water intake Possible DC planning in 24 hours Consultation Date/Type/Reason Admit Date/Time Dec 10, 2016 at 22:20 Initial Consult Date 12/12/16 Type of Consultation: Nephrology Referring Provider: NEFTALI KEN Exam/Review of Systems Vital Signs Vitals Vital Signs Date Time Temp Pulse Resp B/P Pulse Ox O2 Delivery O2 Flow Rate FiO2 12/24/16 08:16 87 90/56 12/24/16 08:06 98.1 18 100 Intake and Output 12/23/16 12/23/16 12/24/16 15:00 23:00 07:00 Intake Total 600 ml 920 ml 1400 ml Balance 600 ml 920 ml 1400 ml Results Result Diagram: 12/24/16 0904 12/24/16 0904 Results 24 hrs Laboratory Tests Test 12/24/16 09:04 Anion Gap 20 H Basophils # 0.0 Basophils % 0.6 Blood Morphology Comment Blood Urea Nitrogen 60 H Calcium Level 9.4 Carbon Dioxide Level 16 L Chloride Level 116 H Creatinine 2.26 H Eosinophils # 0.2 Eosinophils % 4.6 Glucose Level 83 Hematocrit 32.0 L Hemoglobin 10.5 L Lymphocytes # 1.5 Lymphocytes % 29.5 Mean Corpuscular Hemoglobin 29.9 Mean Corpuscular Hemoglobin Concent 32.9 Mean Corpuscular Volume 91.0 Mean Platelet Volume 8.1 Monocytes # 0.5 Monocytes % 9.5 Neutrophils # 2.9 Neutrophils % 55.8 Nucleated Red Blood Cells # 0.0 Nucleated Red Blood Cells % 0.0 Platelet Count 290 # Potassium Level 4.4 Red Blood Count 3.52 L Red Cell Distribution Width 14.9 H Sodium Level 148 H White Blood Count 5.2 Medications Medications Current Medications Miscellaneous Information (* Miscellaneous Pharmacy Order) PRIMAXIN PER PHARMACY ONCE XX ; Start 12/11/16 at 00:00 Enoxaparin Sodium (Lovenox) 30 mg DAILY SC Last administered on 12/24/16 08:52 ; Admin Dose 30 MG; Start 12/11/16 at 09:00 Morphine Sulfate (morphine) 2 mg Q2H PRN IV PAIN; Start 12/11/16 at 00:00 Ondansetron HCl (Zofran Inj) 4 mg Q6H PRN IV NAUSEA AND/OR VOMITING Last administered on 12/13/16 10:22; Admin Dose 4 MG; Start 12/11/16 at 00:00 Acetaminophen (Tylenol Tab) 650 mg Q4H PRN PO FOR MILD PAIN ; Start 12/11 at 00:00 Ascorbic Acid (Vitamin C) 500 mg BID PO Last administered on 12/24/16 08:39; Admin Dose 500 MG; Start 12/11/16 at 09:00 Aspirin (Aspirin) 81 mg DAILY PO Last administered on 12/24/16 08:39; Admin Dose 81 MG; Start 12/11/16 at 09:00 Bisacodyl (Dulcolax Supp) 10 mg Q24H PRN [place] CONSTIPATION; Start 12/11/16 at 00: 00 Cholecalciferol (Vitamin D) 3,000 unit DAILY PO Last administered on 12/24/16 08:39; Admin Dose 3,000 UNIT; Start 12/11/16 at 09:00 Docusate Sodium (Colace) 100 mg BID PRN PO CONSTIPATION; Start 12/11/16 at 00: 00 Levetiracetam (Keppra) 750 mg BID PO Last administered on 12/24/16 08:39; Admin Dose 750 MG; Start 12/11/16 at 09:00 Magnesium Hydroxide (Milk Of Mag) 30 ml Q24H PRN PO CONSTIPATION; Start at 00:00 Pantoprazole (Protonix Tab) 40 mg DAILY@06 PO Last administered on 12/24/16 06 :23; Admin Dose 40 MG; Start 12/11/16 at 06:00 Donepezil HCl 10 mg 10 mg DAILY PO Last administered on 12/24/16 08:39; Admin Dose 10 MG; Start 12/11/16 at 09:00 Dextrose/Sodium Chloride 1,000 ml @ 50 mls/hr Q20H IV Last administered on 1/ 22/17at 23:47; Admin Dose 50 MLS/HR; Start 12/20/16 at 12:30 Sodium Chloride (1/2 NS) 1,000 ml @ 80 mls/hr [id number] IV ; Start 12/24/16 at 15 :00 NANI COLEMAN MD Dec 24, 2016 15:29
[2016-12-24] MEDS: DEXTROSE 5%-0.45% NACL 1,000 ML IV SCH (15:48)
[2016-12-24] MEDS: SOD CHLORIDE 0.45% 1,000 ML IV SCH (15:51)
--- NOTE | 2016-12-24 18:30 | PN ---
Date/Time of Note Date/Time of Note DATE: 12/24/16 TIME: 18:29 Assessment/Plan VTE Prophylaxis VTE Prophylaxis Intervention: SCD's Lines/Catheters IV Catheter Type (from [facility]): Peripheral IV Urinary Cath still in place: No Assessment/Plan Chief Complaint/Hosp Course ASSESSMENT AND PLAN: 1. E. coli ESBL urinary tract infection per urinalysis, s/p treatment. 2. Dehydration, resolved. Continue IV fluids. Monitor electrolytes. 3. Acute kidney injury secondary to dehydration on top of chronic kidney disease. Continue to monitor BUN and creatinine. Dr Marcum in nephrology consult. Continue IV fluids. 4. Dementia. Continue Aricept. 5. Hypothyroidism. Continue Synthroid. 6. History of seizure disorder. Continue Keppra. 7. History of cerebrovascular accident. Continue patient on aspirin. Continue Lovenox for deep venous thrombosis prophylaxis and Protonix for peptic ulcer disease prophylaxis. Anticipate discharge home tomorrow is renal function improved. Further recommendations based on clinical course. Plan of care discussed with Dr. Marcum. Problems: Subjective 24 Hr Interval Summary Free Text/Dictation No acute events overnight patient is comfortable, slight increase in creatinine today, increase IV fluids, check BMP tomorrow. Exam/Review of Systems Vital Signs Vitals Vital Signs Date Time Temp Pulse Resp B/P Pulse Ox O2 Delivery O2 Flow Rate FiO2 12/24/16 08:16 87 90/56 12/24/16 08:06 98.1 18 100 Intake and Output 12/23/16 12/23/16 12/24/16 15:00 23:00 07:00 Intake Total 600 ml 920 ml 1400 ml Balance 600 ml 920 ml 1400 ml Exam GENERAL: Well-developed, well-nourished female currently is awake, alert. HEENT: Head is atraumatic, normocephalic. NECK: Supple. No cervical lymphadenopathy, no thyromegaly. CHEST: Lungs clear bilaterally. There is no rhonchi, wheezes, or rales noted. CARDIOVASCULAR: Normal S1, S2. No murmurs, gallops, clicks, rubs noted. ABDOMEN: Round, soft, nondistended, nontender. EXTREMITIES: No edema, clubbing, cyanosis. Pulses equal bilaterally 2+. SKIN: There is no rash, petechiae noted. NEUROLOGIC: The patient is awake, alert and oriented to name and situation. Results Result Diagram: 12/24/1690312/24/1604 Results 24 hrs Laboratory Tests Test 12/24/16 09:04 Anion Gap 20 H Basophils # 0.0 Basophils % 0.6 Blood Morphology Comment Blood Urea Nitrogen 60 H Calcium Level 9.4 Carbon Dioxide Level 16 L Chloride Level 116 H Creatinine 2.26 H Eosinophils # 0.2 Eosinophils % 4.6 Glucose Level 83 Hematocrit 32.0 L Hemoglobin 10.5 L Lymphocytes # 1.5 Lymphocytes % 29.5 Mean Corpuscular Hemoglobin 29.9 Mean Corpuscular Hemoglobin Concent 32.9 Mean Corpuscular Volume 91.0 Mean Platelet Volume 8.1 Monocytes # 0.5 Monocytes % 9.5 Neutrophils # 2.9 Neutrophils % 55.8 Nucleated Red Blood Cells # 0.0 Nucleated Red Blood Cells % 0.0 Platelet Count 290 # Potassium Level 4.4 Red Blood Count 3.52 L Red Cell Distribution Width 14.9 H Sodium Level 148 H White Blood Count 5.2 Medications Medications Current Medications Miscellaneous Information (* Miscellaneous Pharmacy Order) PRIMAXIN PER PHARMACY ONCE XX ; Start 12/11/16 at 00:00 Enoxaparin Sodium (Lovenox) 30 mg DAILY SC Last administered on 12/24/16 08:52 ; Admin Dose 30 MG; Start 12/11/16 at 09:00 Morphine Sulfate (morphine) 2 mg Q2H PRN IV PAIN; Start 12/11/16 at 00:00 Ondansetron HCl (Zofran Inj) 4 mg Q6H PRN IV NAUSEA AND/OR VOMITING Last administered on 12/13/16 10:22; Admin Dose 4 MG; Start 12/11/16 at 00:00 Acetaminophen (Tylenol Tab) 650 mg Q4H PRN PO FOR MILD PAIN ; Start 12/11 at 00:00 Ascorbic Acid (Vitamin C) 500 mg BID PO Last administered on 12/24/16 08:39; Admin Dose 500 MG; Start 12/11/16 at 09:00 Aspirin (Aspirin) 81 mg DAILY PO Last administered on 12/24/16 08:39; Admin Dose 81 MG; Start 12/11/16 at 09:00 Bisacodyl (Dulcolax Supp) 10 mg Q24H PRN [place] CONSTIPATION; Start 12/11/16 at 00: 00 Cholecalciferol (Vitamin D) 3,000 unit DAILY PO Last administered on 12/24/16 08:39; Admin Dose 3,000 UNIT; Start 12/11/16 at 09:00 Docusate Sodium (Colace) 100 mg BID PRN PO CONSTIPATION; Start 12/11/16 at 00: 00 Levetiracetam (Keppra) 750 mg BID PO Last administered on 12/24/16 08:39; Admin Dose 750 MG; Start 12/11/16 at 09:00 Magnesium Hydroxide (Milk Of Mag) 30 ml Q24H PRN PO CONSTIPATION; Start at 00:00 Pantoprazole (Protonix Tab) 40 mg DAILY@06 PO Last administered on 12/24/16 06 :23; Admin Dose 40 MG; Start 12/11/16 at 06:00 Donepezil HCl 10 mg 10 mg DAILY PO Last administered on 12/24/16 08:39; Admin Dose 10 MG; Start 12/11/16 at 09:00 Dextrose/Sodium Chloride 1,000 ml @ 50 mls/hr Q20H IV Last administered on 23:47; Admin Dose 50 MLS/HR; Start 12/20/16 at 12:30 Sodium Chloride (1/2 NS) 1,000 ml @ 80 mls/hr [id number] IV Last administered on 12/24/16 15:51; Admin Dose 80 MLS/HR; Start 12/24/16 at 15:00 NEFTALI KEN Dec 24, 2016 18:30
[2016-12-24 20:39] VITALS: BP 80/49; RESP 18
[2016-12-25] MEDS: LEVOTHYROXINE 100 MCG TAB PO SCH (06:16)
[2016-12-25] MEDS: SOD CHLORIDE 0.45% 1,000 ML IV SCH ×2 (06:16→17:16)
[2016-12-25] MEDS: PANTOPRAZOLE (EC) 40 MG TAB PO SCH (06:16)
[2016-12-25 08:04] VITALS: BP 110/64; RESP 19
[2016-12-25] MEDS: CALCIUM CARBONATE 500 MG CHEW TAB PO SCH ×3 (08:39→17:16)
[2016-12-25] MEDS: DONEPEZIL 10 MG TAB PO SCH (08:39)
[2016-12-25] MEDS: LEVETIRACETAM 750 MG TAB PO SCH ×2 (08:39→21:58)
[2016-12-25] MEDS: ASCORBIC ACID 500 MG TAB PO SCH ×2 (08:39→21:58)
[2016-12-25] MEDS: CHOLECALCIFEROL 1,000 UNIT TAB PO SCH (08:39)
[2016-12-25] MEDS: ASPIRIN 81 MG TAB PO SCH (08:39)
[2016-12-25] MEDS: ENOXAPARIN 30 MG/0.3 ML SYG SC SCH (08:41)
[2016-12-25] MEDS: DEXTROSE 5%-0.45% NACL 1,000 ML IV SCH (11:55)
--- NOTE | 2016-12-25 12:41 | CONS ---
Date/Time of Note Date/Time of Note DATE: 12/25/16 TIME: 12:39 Assessment/Plan Assessment/Plan Additional Assessment/Plan 66 yo female with 1. Recurrent Urinary tract infection 2. Dehydration 3. Acute kidney injury 2nd to above, baseline CKD stage IV 4. Dementia. 5. Hypothyroidism. 6. History of seizure disorder. 7. History of cerebrovascular accident. 8. B/L Non obstructing Renal Calculi 9. Hypernatremia Repeat BMP this afternoon Possible DC planning today Cont current Rx and plan Consultation Date/Type/Reason Admit Date/Time Dec 10, 2016 at 22:20 Initial Consult Date 12/12/16 Type of Consultation: Nephrology Referring Provider: NEFTALI KEN Exam/Review of Systems Vital Signs Vitals Vital Signs Date Time Temp Pulse Resp B/P Pulse Ox O2 Delivery O2 Flow Rate FiO2 12/25/16 08:04 97.6 72 19 110/64 97 Intake and Output 12/24/16 12/24/16 12/25/16 15:00 23:00 07:00 Intake Total 1460 ml 1100 ml Output Total 600 ml Balance 1460 ml 500 ml Exam Constitutional: No distress ENMT: mucosa pink and moist Respiratory: No labored breathing Cardiovascular: No edema Gastrointestinal: soft Results Result Diagram: 12/24/1604 12/24/16 0904 Medications Medications Current Medications Miscellaneous Information (* Miscellaneous Pharmacy Order) PRIMAXIN PER PHARMACY ONCE XX ; Start 12/11/16 at 00:00 Enoxaparin Sodium (Lovenox) 30 mg DAILY SC Last administered on 12/24/16 08:52 ; Admin Dose 30 MG; Start 12/11/16 at 09:00 Morphine Sulfate (morphine) 2 mg Q2H PRN IV PAIN; Start 12/11/16 at 00:00 Ondansetron HCl (Zofran Inj) 4 mg Q6H PRN IV NAUSEA AND/OR VOMITING Last administered on 12/13/16 10:22; Admin Dose 4 MG; Start 12/11/16 at 00:00 Acetaminophen (Tylenol Tab) 650 mg Q4H PRN PO FOR MILD PAIN -03/11; Start 12/11 at 00:00 Ascorbic Acid (Vitamin C) 500 mg BID PO Last administered on 12/25/16 08:39; Admin Dose 500 MG; Start 12/11/16 at 09:00 Aspirin (Aspirin) 81 mg DAILY PO Last administered on 12/25/16 08:39; Admin Dose 81 MG; Start 12/11/16 at 09:00 Bisacodyl (Dulcolax Supp) 10 mg Q24H PRN [place] CONSTIPATION; Start 12/11/16 at 00: 00 Cholecalciferol (Vitamin D) 3,000 unit DAILY PO Last administered on 12/25/16 08:39; Admin Dose 3,000 UNIT; Start 12/11/16 at 09:00 Docusate Sodium (Colace) 100 mg BID PRN PO CONSTIPATION; Start 12/11/16 at 00: 00 Levetiracetam (Keppra) 750 mg BID PO Last administered on 12/25/16 08:39; Admin Dose 750 MG; Start 12/11/16 at 09:00 Magnesium Hydroxide (Milk Of Mag) 30 ml Q24H PRN PO CONSTIPATION; Start at 00:00 Pantoprazole (Protonix Tab) 40 mg DAILY@06 PO Last administered on 12/25/16 06 :16; Admin Dose 40 MG; Start 12/11/16 at 06:00 Donepezil HCl 10 mg 10 mg DAILY PO Last administered on 12/25/16 08:39; Admin Dose 10 MG; Start 12/11/16 at 09:00 Dextrose/Sodium Chloride 1,000 ml @ 50 mls/hr Q20H IV Last administered on 23:47; Admin Dose 50 MLS/HR; Start 12/20/16 at 12:30 Sodium Chloride (1/2 NS) 1,000 ml @ 80 mls/hr [id number] IV Last administered on 12/25/16 06:16; Admin Dose 80 MLS/HR; Start 12/24/16 at 15:00 NANI COLEMAN MD Dec 25, 2016 12:41
[2016-12-25 15:02] LABS: POTASSIUM 5.2 mmol/L (3.5-5.1)
[2016-12-25 15:04] LABS: CREATININE 2.13 mg/dl (0.44-1.00)
--- NOTE | 2016-12-25 18:46 | PN ---
Date/Time of Note Date/Time of Note DATE: 12/25/16 TIME: 18:45 Assessment/Plan VTE Prophylaxis VTE Prophylaxis Intervention: SCD's Lines/Catheters IV C[facility]ter Type (from [facility]): Peripheral IV Urinary Cath still in place: No Assessment/Plan Chief Complaint/Hosp Course ASSESSMENT AND PLAN: 1. E. coli ESBL urinary tract infection per urinalysis, s/p treatment. 2. Dehydration, resolved. Continue IV fluids. Monitor electrolytes. 3. Acute kidney injury secondary to dehydration on top of chronic kidney disease. Continue to monitor BUN and creatinine. Dr Marcum in nephrology consult. Continue IV fluids. 4. Dementia. Continue Aricept. 5. Hypothyroidism. Continue Synthroid. 6. History of seizure disorder. Continue Keppra. 7. History of cerebrovascular accident. Continue patient on aspirin. Continue Lovenox for deep venous thrombosis prophylaxis and Protonix for peptic ulcer disease prophylaxis. Anticipate discharge home tomorrow is renal function improved. Further recommendations based on clinical course. Plan of care discussed with Dr. Marcum. Problems: Subjective 24 Hr Interval Summary Free Text/Dictation Patient looks comfortable, denies nausea vomiting. Exam/Review of Systems Vital Signs Vitals Vital Signs Date Time Temp Pulse Resp B/P Pulse Ox O2 Delivery O2 Flow Rate FiO2 12/25/16 08:04 97.6 72 19 110/64 97 Intake and Output 12/24/16 12/24/16 12/25/16 15:00 23:00 07:00 Intake Total 1460 ml 1100 ml Output Total 600 ml Balance 1460 ml 500 ml Exam GENERAL: Well-developed, well-nourished female currently is awake, alert. HEENT: Head is atraumatic, normocephalic. NECK: Supple. No cervical lymphadenopathy, no thyromegaly. CHEST: Lungs clear bilaterally. There is no rhonchi, wheezes, or rales noted. CARDIOVASCULAR: Normal S1, S2. No murmurs, gallops, clicks, rubs noted. ABDOMEN: Round, soft, nondistended, nontender. EXTREMITIES: No edema, clubbing, cyanosis. Pulses equal bilaterally 2+. SKIN: There is no rash, petechiae noted. NEUROLOGIC: The patient is awake, alert and oriented to name and situation. Results Result Diagram: 12/24/16 0904 12/25/16 1345 Results 24 hrs Laboratory Tests Test 12/25/16 13:45 Anion Gap 19 H Blood Urea Nitrogen 54 H Calcium Level 9.0 Carbon Dioxide Level 15 L Chloride Level 117 H Creatinine 2.13 H Glucose Level 84 Potassium Level 5.2 H Sodium Level 146 H Medications Medications Current Medications Enoxaparin Sodium (Lovenox) 30 mg DAILY SC Last administered on 12/24/16 08:52 ; Admin Dose 30 MG; Start 12/11/16 at 09:00 Morphine Sulfate (morphine) 2 mg Q2H PRN IV PAIN; Start 12/11/16 at 00:00 Ondansetron HCl (Zofran Inj) 4 mg Q6H PRN IV NAUSEA AND/OR VOMITING Last administered on 12/13/16 10:22; Admin Dose 4 MG; Start 12/11/16 at 00:00 Acetaminophen (Tylenol Tab) 650 mg Q4H PRN PO FOR MILD PAIN -03/11; Start 12/11 at 00:00 Ascorbic Acid (Vitamin C) 500 mg BID PO Last administered on 12/25/16 08:39; Admin Dose 500 MG; Start 12/11/16 at 09:00 Aspirin (Aspirin) 81 mg DAILY PO Last administered on 12/25/16 08:39; Admin Dose 81 MG; Start 12/11/16 at 09:00 Bisacodyl (Dulcolax Supp) 10 mg Q24H PRN [place] CONSTIPATION; Start 12/11/16 at 00: 00 Cholecalciferol (Vitamin D) 3,000 unit DAILY PO Last administered on 12/25/16 08:39; Admin Dose 3,000 UNIT; Start 12/11/16 at 09:00 Docusate Sodium (Colace) 100 mg BID PRN PO CONSTIPATION; Start 12/11/16 at 00: 00 Levetiracetam (Keppra) 750 mg BID PO Last administered on 12/25/16 08:39; Admin Dose 750 MG; Start 12/11/16 at 09:00 Magnesium Hydroxide (Milk Of Mag) 30 ml Q24H PRN PO CONSTIPATION; Start at 00:00 Pantoprazole (Protonix Tab) 40 mg DAILY@06 PO Last administered on 12/25/16 06 :16; Admin Dose 40 MG; Start 12/11/16 at 06:00 Donepezil HCl 10 mg 10 mg DAILY PO Last administered on 12/25/16 08:39; Admin Dose 10 MG; Start 12/11/16 at 09:00 Sodium Chloride (1/2 NS) 1,000 ml @ 80 mls/hr [id number] IV Last administered on 12/25/16 17:16; Admin Dose 80 MLS/HR; Start 12/24/16 at 15:00 NEFTALI KEN Dec 25, 2016 18:46
[2016-12-25 19:34] VITALS: BP 100/57; RESP 18
[2016-12-26] MEDS: PANTOPRAZOLE (EC) 40 MG TAB PO SCH (05:48)
[2016-12-26] MEDS: SOD CHLORIDE 0.45% 1,000 ML IV SCH ×3 (05:48→20:27)
[2016-12-26] MEDS: LEVOTHYROXINE 100 MCG TAB PO SCH (05:50)
[2016-12-26 06:02] LABS: BASOPHILS % 0.7 % (0.0-2.0); EOSINOPHILS # 0.3 10^3/ul (0.0-0.5); EOSINOPHILS % 5.6 % (0.0-7.0); HEMATOCRIT 28.6 % (37.0-47.0); HEMOGLOBIN 9.6 g/dl (12.0-16.0); LYMPHOCYTES # 1.8 10^3/ul (0.8-2.9); LYMPHOCYTES % 36.4 % (15.0-51.0); MEAN CORPUSCULAR HEMOGLOBIN 30.4 pg (29.0-33.0); MEAN CORPUSCULAR HGB CONC 33.5 g/dl (32.0-37.0); MEAN CORPUSCULAR VOLUME 90.8 fl (82.0-101.0); MEAN PLATELET VOLUME 8.2 fl (7.4-10.4); MONOCYTE # 0.6 10^3/ul (0.3-0.9); MONOCYTES % 11.7 % (0.0-11.0); NEUTROPHIL # 2.2 10^3/ul (1.6-7.5); NEUTROPHILS % 45.6 % (39.0-77.0); PLATELET COUNT 281 10^3/UL (140-440); RED BLOOD COUNT 3.15 10^6/ul (4.20-5.40); RED CELL DISTRIBUTION WIDTH 14.9 % (11.5-14.5); UNCORRECTED WBC 4.9 10^3/ul (4.8-10.8); WHITE BLOOD COUNT 4.9 10^3/ul (4.8-10.8)
[2016-12-26 06:11] LABS: CONDITION 1; LH ANALYZER COMMENTS 1
[2016-12-26 06:15] LABS: POTASSIUM 4.6 mmol/L (3.5-5.1)
[2016-12-26 06:18] LABS: CALCIUM 9.2 mg/dl (8.4-10.2); CREATININE 2.04 mg/dl (0.44-1.00)
[2016-12-26 07:48] VITALS: BP 80/45; RESP 16
[2016-12-26] MEDS: CALCIUM CARBONATE 500 MG CHEW TAB PO SCH ×3 (08:44→18:30)
[2016-12-26] MEDS: ASCORBIC ACID 500 MG TAB PO SCH ×2 (08:45→20:27)
[2016-12-26] MEDS: CHOLECALCIFEROL 1,000 UNIT TAB PO SCH (08:45)
[2016-12-26] MEDS: LEVETIRACETAM 750 MG TAB PO SCH (08:45)
[2016-12-26] MEDS: ASPIRIN 81 MG TAB PO SCH (08:45)
[2016-12-26] MEDS: DONEPEZIL 10 MG TAB PO SCH (08:45)
[2016-12-26] MEDS: ENOXAPARIN 30 MG/0.3 ML SYG SC SCH (08:51)
[2016-12-26 08:55] VITALS: BP 82/50; PULSE 85
[2016-12-26 10:00] VITALS: BP 86/44; PULSE 86
[2016-12-26 12:31] VITALS: BP 107/53; PULSE 84
[2016-12-26] MEDS: morphine 2 MG INJ IV PRN (16:20)
--- NOTE | 2016-12-26 17:33 | CONS ---
Date/Time of Note Date/Time of Note DATE: 12/26/16 TIME: 17:33 Assessment/Plan Assessment/Plan Additional Assessment/Plan 66 yo female with 1. Recurrent Urinary tract infection 2. Dehydration 3. Acute kidney injury 2nd to above, baseline CKD stage IV 4. Dementia. 5. Hypothyroidism. 6. History of seizure disorder. 7. History of cerebrovascular accident. 8. B/L Non obstructing Renal Calculi 9. Hypernatremia Na Improved, Hyperkalemia Resolved Possible DC planning tomorrow. Cont current Rx and plan Consultation Date/Type/Reason Admit Date/Time Dec 10, 2016 at 22:20 Initial Consult Date 12/12/16 Type of Consultation: Nephrology Referring Provider: NEFTALI KEN Exam/Review of Systems Vital Signs Vitals Vital Signs Date Time Temp Pulse Resp B/P Pulse Ox O2 Delivery O2 Flow Rate FiO2 12/26/16 12:31 84 107/53 12/26/16 07:48 98.6 16 95 Intake and Output 12/25/16 12/25/16 12/26/16 15:00 23:00 07:00 Intake Total 2080 ml 1120 ml Output Total 600 ml Balance 1480 ml 1120 ml Exam Constitutional: No distress Respiratory: No diminished breath sounds Gastrointestinal: soft Extremities: No edema Skin: No diaphoresis Results Result Diagram: 12/26/16 0521 12/26/16 0511 Results 24 hrs Laboratory Tests Test 12/26/16 05:11 12/26/16 05:21 Anion Gap 17 H Blood Urea Nitrogen 49 H Calcium Level 9.2 Carbon Dioxide Level 18 L Chloride Level 116 H Creatinine 2.04 H Glucose Level 87 Potassium Level 4.6 Sodium Level 146 H Basophils # 0.0 Basophils % 0.7 Blood Morphology Comment Eosinophils # 0.3 Eosinophils % 5.6 Hematocrit 28.6 L Hemoglobin 9.6 L Lymphocytes # 1.8 Lymphocytes % 36.4 Mean Corpuscular Hemoglobin 30.4 Mean Corpuscular Hemoglobin Concent 33.5 Mean Corpuscular Volume 90.8 Mean Platelet Volume 8.2 Monocytes # 0.6 Monocytes % 11.7 H Neutrophils # 2.2 Neutrophils % 45.6 Nucleated Red Blood Cells # 0.0 Nucleated Red Blood Cells % 0.0 Platelet Count 281 Red Blood Count 3.15 L Red Cell Distribution Width 14.9 H White Blood Count 4.9 Medications Medications Current Medications Enoxaparin Sodium (Lovenox) 30 mg DAILY SC Last administered on 12/26/16 08:51 ; Admin Dose 30 MG; Start 12/11/16 at 09:00 Morphine Sulfate (morphine) 2 mg Q2H PRN IV PAIN Last administered on 16:20; Admin Dose 2 MG; Start 12/11/16 at 00:00 Ondansetron HCl (Zofran Inj) 4 mg Q6H PRN IV NAUSEA AND/OR VOMITING Last administered on 12/13/16 10:22; Admin Dose 4 MG; Start 12/11/16 at 00:00 Acetaminophen (Tylenol Tab) 650 mg Q4H PRN PO FOR MILD PAIN ; Start 12/11 at 00:00 Ascorbic Acid (Vitamin C) 500 mg BID PO Last administered on 12/26/16 08:45; Admin Dose 500 MG; Start 12/11/16 at 09:00 Aspirin (Aspirin) 81 mg DAILY PO Last administered on 12/26/16 08:45; Admin Dose 81 MG; Start 12/11/16 at 09:00 Bisacodyl (Dulcolax Supp) 10 mg Q24H PRN [place] CONSTIPATION; Start 12/11/16 at 00: 00 Cholecalciferol (Vitamin D) 3,000 unit DAILY PO Last administered on 12/26/16 08:45; Admin Dose 3,000 UNIT; Start 12/11/16 at 09:00 Docusate Sodium (Colace) 100 mg BID PRN PO CONSTIPATION; Start 12/11/16 at 00: 00 Magnesium Hydroxide (Milk Of Mag) 30 ml Q24H PRN PO CONSTIPATION; Start at 00:00 Pantoprazole (Protonix Tab) 40 mg DAILY@06 PO Last administered on 12/26/16 05 :48; Admin Dose 40 MG; Start 12/11/16 at 06:00 Donepezil HCl 10 mg 10 mg DAILY PO Last administered on 12/26/16 08:45; Admin Dose 10 MG; Start 12/11/16 at 09:00 Sodium Chloride (1/2 NS) 1,000 ml @ 80 mls/hr [id number] IV Last administered on 12/26/16 05:48; Admin Dose 80 MLS/HR; Start 12/24/16 at 15:00 Levetiracetam (Keppra) 500 mg BID PO ; Start 12/26/16 at 21:00 NANI COLEMAN MD Dec 26, 2016 17:33
--- NOTE | 2016-12-26 17:55 | PN ---
Date/Time of Note Date/Time of Note DATE: 12/26/16 TIME: 17:54 Assessment/Plan VTE Prophylaxis VTE Prophylaxis Intervention: SCD's Lines/Catheters IV Catheter Type (from [facility]): Peripheral IV Urinary Cath still in place: No Assessment/Plan Chief Complaint/Hosp Course ASSESSMENT AND PLAN: 1. E. coli ESBL urinary tract infection per urinalysis, s/p treatment. 2. Dehydration, resolved. Continue IV fluids. Monitor electrolytes. 3. Acute kidney injury secondary to dehydration on top of chronic kidney disease. Continue to monitor BUN and creatinine. Dr Marcum in nephrology consult. Continue IV fluids. 4. Dementia. Continue Aricept. 5. Hypothyroidism. Continue Synthroid. 6. History of seizure disorder. Continue Keppra. 7. History of cerebrovascular accident. Continue patient on aspirin. Continue Lovenox for deep venous thrombosis prophylaxis and Protonix for peptic ulcer disease prophylaxis. Further recommendations based on clinical course. Plan of care discussed with Dr. Marcum. Problems: Subjective 24 Hr Interval Summary Free Text/Dictation Patient denies dysuria, denies nausea vomiting, no fever. Exam/Review of Systems Vital Signs Vitals Vital Signs Date Time Temp Pulse Resp B/P Pulse Ox O2 Delivery O2 Flow Rate FiO2 12/26/16 12:31 84 107/53 12/26/16 07:48 98.6 16 95 Intake and Output 12/25/16 12/25/16 12/26/16 15:00 23:00 07:00 Intake Total 2080 ml 1120 ml Output Total 600 ml Balance 1480 ml 1120 ml Exam GENERAL: Well-developed, well-nourished female currently is awake, alert. HEENT: Head is atraumatic, normocephalic. NECK: Supple. No cervical lymphadenopathy, no thyromegaly. CHEST: Lungs clear bilaterally. There is no rhonchi, wheezes, or rales noted. CARDIOVASCULAR: Normal S1, S2. No murmurs, gallops, clicks, rubs noted. ABDOMEN: Round, soft, nondistended, nontender. EXTREMITIES: No edema, clubbing, cyanosis. Pulses equal bilaterally 2+. SKIN: There is no rash, petechiae noted. NEUROLOGIC: The patient is awake, alert and oriented to name and situation. Results Result Diagram: 12/26/16 0521 12/26/16 0511 Results 24 hrs Laboratory Tests Test 12/26/16 05:11 12/26/16 05:21 Anion Gap 17 H Blood Urea Nitrogen 49 H Calcium Level 9.2 Carbon Dioxide Level 18 L Chloride Level 116 H Creatinine 2.04 H Glucose Level 87 Potassium Level 4.6 Sodium Level 146 H Basophils # 0.0 Basophils % 0.7 Blood Morphology Comment Eosinophils # 0.3 Eosinophils % 5.6 Hematocrit 28.6 L Hemoglobin 9.6 L Lymphocytes # 1.8 Lymphocytes % 36.4 Mean Corpuscular Hemoglobin 30.4 Mean Corpuscular Hemoglobin Concent 33.5 Mean Corpuscular Volume 90.8 Mean Platelet Volume 8.2 Monocytes # 0.6 Monocytes % 11.7 H Neutrophils # 2.2 Neutrophils % 45.6 Nucleated Red Blood Cells # 0.0 Nucleated Red Blood Cells % 0.0 Platelet Count 281 Red Blood Count 3.15 L Red Cell Distribution Width 14.9 H White Blood Count 4.9 Medications Medications Current Medications Enoxaparin Sodium (Lovenox) 30 mg DAILY SC Last administered on 12/26/16 08:51 ; Admin Dose 30 MG; Start 12/11/16 at 09:00 Morphine Sulfate (morphine) 2 mg Q2H PRN IV PAIN Last administered on 16:20; Admin Dose 2 MG; Start 12/11/16 at 00:00 Ondansetron HCl (Zofran Inj) 4 mg Q6H PRN IV NAUSEA AND/OR VOMITING Last administered on 12/13/16 10:22; Admin Dose 4 MG; Start 12/11/16 at 00:00 Acetaminophen (Tylenol Tab) 650 mg Q4H PRN PO FOR MILD PAIN ; Start 12/11 at 00:00 Ascorbic Acid (Vitamin C) 500 mg BID PO Last administered on 12/26/16 08:45; Admin Dose 500 MG; Start 12/11/16 at 09:00 Aspirin (Aspirin) 81 mg DAILY PO Last administered on 12/26/16 08:45; Admin Dose 81 MG; Start 12/11/16 at 09:00 Bisacodyl (Dulcolax Supp) 10 mg Q24H PRN [place] CONSTIPATION; Start 12/11/16 at 00: 00 Cholecalciferol (Vitamin D) 3,000 unit DAILY PO Last administered on 1/25/17at 08:45; Admin Dose 3,000 UNIT; Start 12/11/16 at 09:00 Docusate Sodium (Colace) 100 mg BID PRN PO CONSTIPATION; Start 12/11/16 at 00: 00 Magnesium Hydroxide (Milk Of Mag) 30 ml Q24H PRN PO CONSTIPATION; Start at 00:00 Pantoprazole (Protonix Tab) 40 mg DAILY@06 PO Last administered on 12/26/16 05 :48; Admin Dose 40 MG; Start 12/11/16 at 06:00 Donepezil HCl 10 mg 10 mg DAILY PO Last administered on 12/26/16 08:45; Admin Dose 10 MG; Start 12/11/16 at 09:00 Sodium Chloride (1/2 NS) 1,000 ml @ 80 mls/hr [id number] IV Last administered on 12/26/16 05:48; Admin Dose 80 MLS/HR; Start 12/24/16 at 15:00 Levetiracetam (Keppra) 500 mg BID PO ; Start 12/26/16 at 21:00 NEFTALI KEN Dec 26, 2016 17:55
[2016-12-26 19:25] VITALS: BP 101/54; RESP 16
[2016-12-26] MEDS: LEVETIRACETAM 500 MG TAB PO SCH (20:27)
[2016-12-27] MEDS: PANTOPRAZOLE (EC) 40 MG TAB PO SCH (05:33)
[2016-12-27] MEDS: LEVOTHYROXINE 100 MCG TAB PO SCH (05:33)
[2016-12-27 06:14] LABS: POTASSIUM 4.3 mmol/L (3.5-5.1)
[2016-12-27 06:18] LABS: CALCIUM 9.1 mg/dl (8.4-10.2)
[2016-12-27 07:32] LABS: THYROID STIMULATING HORMONE 0.276 MIU/L (0.465-4.680)
[2016-12-27 07:46] VITALS: BP 91/55; RESP 16
[2016-12-27 09:00] VITALS: BP 101/55; PULSE 78
[2016-12-27] MEDS: ENOXAPARIN 30 MG/0.3 ML SYG SC SCH (09:00)
[2016-12-27] MEDS: CHOLECALCIFEROL 1,000 UNIT TAB PO SCH (09:46)
[2016-12-27] MEDS: ASPIRIN 81 MG TAB PO SCH (09:46)
[2016-12-27] MEDS: CALCIUM CARBONATE 500 MG CHEW TAB PO SCH ×3 (09:46→18:30)
[2016-12-27] MEDS: DONEPEZIL 10 MG TAB PO SCH (09:46)
[2016-12-27] MEDS: ASCORBIC ACID 500 MG TAB PO SCH ×2 (09:46→20:49)
[2016-12-27] MEDS: LEVETIRACETAM 500 MG TAB PO SCH ×2 (09:46→20:49)
[2016-12-27] MEDS: morphine 2 MG INJ IV PRN (09:55)
[2016-12-27] MEDS: SOD CHLORIDE 0.45% 1,000 ML IV SCH (09:55)
--- NOTE | 2016-12-27 11:30 | CONS ---
Date/Time of Note Date/Time of Note DATE: 12/27/16 TIME: 11:29 Assessment/Plan Assessment/Plan Additional Assessment/Plan 66 yo female with 1. Recurrent Urinary tract infection 2. Dehydration 3. Acute kidney injury 2nd to above, baseline CKD stage IV 4. Dementia. 5. Hypothyroidism. 6. History of seizure disorder. 7. History of cerebrovascular accident. 8. B/L Non obstructing Renal Calculi 9. Hypernatremia Renal function stable and improved. Na Improved, Hyperkalemia Resolved Possible DC planning Cont current Rx and plan Encourage FLuids Consultation Date/Type/Reason Admit Date/Time Dec 10, 2016 at 22:20 Initial Consult Date 12/12/16 Type of Consultation: Nephrology Referring Provider: NEFTALI KEN 24 HR Interval Summary Constitutional: No requiring O2 Exam/Review of Systems Vital Signs Vitals Vital Signs Date Time Temp Pulse Resp B/P Pulse Ox O2 Delivery O2 Flow Rate FiO2 12/27/16 07:46 98.3 75 16 91/55 97 Intake and Output 12/26/16 12/26/16 12/27/16 15:00 23:00 07:00 Intake Total 3100 ml 920 ml Balance 3100 ml 920 ml Exam Constitutional: No distress ENMT: mucosa pink and moist Respiratory: clear to auscultation Cardiovascular: regular rate and rhythm, No edema Gastrointestinal: non-tender, soft Neurological: No lethargic Results Result Diagram: 12/26/16 0521 12/27/16 0520 Results 24 hrs Laboratory Tests Test 12/27/16 05:20 Anion Gap 15 Blood Urea Nitrogen 50 H Calcium Level 9.1 Carbon Dioxide Level 18 L Chloride Level 117 H Creatinine 2.00 H Free Thyroxine 3.25 H Glucose Level 83 Potassium Level 4.3 Random Cortisol 6.5 Sodium Level 146 H Thyroid Stimulating Hormone (TSH) 0.276 L Medications Medications Current Medications Enoxaparin Sodium (Lovenox) 30 mg DAILY SC Last administered on 12/26/16 08:51 ; Admin Dose 30 MG; Start 12/11/16 at 09:00 Morphine Sulfate (morphine) 2 mg Q2H PRN IV PAIN Last administered on 09:55; Admin Dose 2 MG; Start 12/11/16 at 00:00 Ondansetron HCl (Zofran Inj) 4 mg Q6H PRN IV NAUSEA AND/OR VOMITING Last administered on 12/13/16 10:22; Admin Dose 4 MG; Start 12/11/16 at 00:00 Acetaminophen (Tylenol Tab) 650 mg Q4H PRN PO FOR MILD PAIN ; Start 12/11 at 00:00 Ascorbic Acid (Vitamin C) 500 mg BID PO Last administered on 12/27/16 09:46; Admin Dose 500 MG; Start 12/11/16 at 09:00 Aspirin (Aspirin) 81 mg DAILY PO Last administered on 12/27/16 09:46; Admin Dose 81 MG; Start 12/11/16 at 09:00 Bisacodyl (Dulcolax Supp) 10 mg Q24H PRN [place] CONSTIPATION; Start 12/11/16 at 00: 00 Cholecalciferol (Vitamin D) 3,000 unit DAILY PO Last administered on 12/27/16 09:46; Admin Dose 3,000 UNIT; Start 12/11/16 at 09:00 Docusate Sodium (Colace) 100 mg BID PRN PO CONSTIPATION; Start 12/11/16 at 00: 00 Magnesium Hydroxide (Milk Of Mag) 30 ml Q24H PRN PO CONSTIPATION; Start at 00:00 Pantoprazole (Protonix Tab) 40 mg DAILY@06 PO Last administered on 12/27/16 05 :33; Admin Dose 40 MG; Start 12/11/16 at 06:00 Donepezil HCl 10 mg 10 mg DAILY PO Last administered on 12/27/16 09:46; Admin Dose 10 MG; Start 12/11/16 at 09:00 Sodium Chloride (1/2 NS) 1,000 ml @ 80 mls/hr [id number] IV Last administered on 12/27/16 09:55; Admin Dose 80 MLS/HR; Start 12/24/16 at 15:00 Levetiracetam (Keppra) 500 mg BID PO Last administered on 12/27/16 09:46; Admin Dose 500 MG; Start 12/26/16 at 21:00 NANI COLEMAN MD Dec 27, 2016 11:30
--- NOTE | 2016-12-27 12:09 | PN ---
Date/Time of Note Date/Time of Note DATE: 12/27/16 TIME: 12:07 Assessment/Plan Lines/Catheters IV [facility] Type ([facility] Peripheral IV Urinary Cath still in place: No Assessment/Plan Assessment/Plan 1. E. coli ESBL urinary tract infection per urinalysis, s/p treatment. 2. Dehydration, resolved. Continue IV fluids. Monitor electrolytes. 3. Acute kidney injury secondary to dehydration on top of chronic kidney disease. Continue to monitor BUN and creatinine. Dr Marcum in nephrology consult. Continue IV fluids. 4. Dementia. Continue Aricept. 5. Hypothyroidism. Continue Synthroid. 6. History of seizure disorder. Continue Keppra. 7. History of cerebrovascular accident. Continue patient on aspirin. Continue Lovenox for deep venous thrombosis prophylaxis and Protonix for peptic ulcer disease prophylaxis. Further recommendations based on clinical course. Plan of care discussed with Dr. Marcum. Subjective 24 Hr Interval Summary Constitutional: improved Eyes: no complaints ENT: no complaints Respiratory: no complaints Cardiovascular: no complaints Gastrointestinal: no complaints Genitourinary: no complaints Musculoskeletal: no complaints Skin: no complaints Neurologic: no complaints Endocrine: no complaints Lymphatic: no complaints Psychological: nl mood/affect Exam/Review of Systems Vital Signs Vitals Vital Signs Date Time Temp Pulse Resp B/P Pulse Ox O2 Delivery O2 Flow Rate FiO2 12/27/16 09:00 78 101/55 12/27/16 07:46 98.3 16 97 Intake and Output 12/26/16 12/26/16 12/27/16 15:00 23:00 07:00 Intake Total 3100 ml 920 ml Balance 3100 ml 920 ml Exam Constitutional: alert, well developed Psych: no complaints Head: normocephalic Eyes: EOMI, PERRL, nl sclera ENMT: nl external ears & nose Neck: non-tender Respiratory: clear to auscultation Cardiovascular: nl pulses Gastrointestinal: non-tender, soft Musculoskeletal: nl extremities to inspection Extremities: normal pulses Neurological: nl speech Skin: nl turgor Results Result Diagram: 12/26/16 0521 12/27/16 0520 Results 24 hrs Laboratory Tests Test 12/27/16 05:20 Anion Gap 15 Blood Urea Nitrogen 50 H Calcium Level 9.1 Carbon Dioxide Level 18 L Chloride Level 117 H Creatinine 2.00 H Free Thyroxine 3.25 H Glucose Level 83 Potassium Level 4.3 Random Cortisol 6.5 Sodium Level 146 H Thyroid Stimulating Hormone (TSH) 0.276 L Medications Medications Current Medications Enoxaparin Sodium (Lovenox) 30 mg DAILY SC Last administered on 12/26/16 08:51 ; Admin Dose 30 MG; Start 12/11/16 at 09:00 Morphine Sulfate (morphine) 2 mg Q2H PRN IV PAIN Last administered on 09:55; Admin Dose 2 MG; Start 12/11/16 at 00:00 Ondansetron HCl (Zofran Inj) 4 mg Q6H PRN IV NAUSEA AND/OR VOMITING Last administered on 12/13/16 10:22; Admin Dose 4 MG; Start 12/11/16 at 00:00 Acetaminophen (Tylenol Tab) 650 mg Q4H PRN PO FOR MILD PAIN -03/11; Start 12/11 at 00:00 Ascorbic Acid (Vitamin C) 500 mg BID PO Last administered on 12/27/16 09:46; Admin Dose 500 MG; Start 12/11/16 at 09:00 Aspirin (Aspirin) 81 mg DAILY PO Last administered on 12/27/16 09:46; Admin Dose 81 MG; Start 12/11/16 at 09:00 Bisacodyl (Dulcolax Supp) 10 mg Q24H PRN [place] CONSTIPATION; Start 12/11/16 at 00: 00 Cholecalciferol (Vitamin D) 3,000 unit DAILY PO Last administered on 12/27/16 09:46; Admin Dose 3,000 UNIT; Start 12/11/16 at 09:00 Docusate Sodium (Colace) 100 mg BID PRN PO CONSTIPATION; Start 12/11/16 at 00: 00 Magnesium Hydroxide (Milk Of Mag) 30 ml Q24H PRN PO CONSTIPATION; Start at 00:00 Pantoprazole (Protonix Tab) 40 mg DAILY@06 PO Last administered on 12/27/16 05 :33; Admin Dose 40 MG; Start 12/11/16 at 06:00 Donepezil HCl 10 mg 10 mg DAILY PO Last administered on 12/27/16 09:46; Admin Dose 10 MG; Start 12/11/16 at 09:00 Sodium Chloride (1/2 NS) 1,000 ml @ 80 mls/hr [id number] IV Last administered on 12/27/16 09:55; Admin Dose 80 MLS/HR; Start 12/24/16 at 15:00 Levetiracetam (Keppra) 500 mg BID PO Last administered on 12/27/16 09:46; Admin Dose 500 MG; Start 12/26/16 at 21:00 ROSHAN NEELY Dec 27, 2016 12:09
[2016-12-27 20:10] VITALS: BP 84/91; RESP 18
[2016-12-28] MEDS: SOD CHLORIDE 0.45% 1,000 ML IV SCH ×2 (06:11→10:03)
[2016-12-28] MEDS: PANTOPRAZOLE (EC) 40 MG TAB PO SCH (06:12)
[2016-12-28 06:33] LABS: POTASSIUM 4.3 mmol/L (3.5-5.1)
[2016-12-28 06:35] LABS: CREATININE 2.09 mg/dl (0.44-1.00)
[2016-12-28 06:36] LABS: CALCIUM 9.2 mg/dl (8.4-10.2)
[2016-12-28 06:57] LABS: BASOPHILS % 0.8 % (0.0-2.0); EOSINOPHILS # 0.2 10^3/ul (0.0-0.5); EOSINOPHILS % 4.7 % (0.0-7.0); HEMATOCRIT 29.6 % (37.0-47.0); HEMOGLOBIN 10.1 g/dl (12.0-16.0); LYMPHOCYTES # 1.9 10^3/ul (0.8-2.9); LYMPHOCYTES % 37.6 % (15.0-51.0); MEAN CORPUSCULAR HEMOGLOBIN 30.7 pg (29.0-33.0); MEAN CORPUSCULAR VOLUME 90.2 fl (82.0-101.0); MEAN PLATELET VOLUME 8.2 fl (7.4-10.4); MONOCYTE # 0.6 10^3/ul (0.3-0.9); MONOCYTES % 12.8 % (0.0-11.0); NEUTROPHIL # 2.2 10^3/ul (1.6-7.5); NEUTROPHILS % 44.1 % (39.0-77.0); PLATELET COUNT 333 10^3/UL (140-440); RED BLOOD COUNT 3.28 10^6/ul (4.20-5.40); RED CELL DISTRIBUTION WIDTH 15.2 % (11.5-14.5)
[2016-12-28] MEDS ORDERED: LEVOTHYROXINE 100 MCG TAB PO SCH (07:00)
[2016-12-28 07:17] LABS: CONDITION 1; LH ANALYZER COMMENTS 1
[2016-12-28 07:55] VITALS: BP 101/63; RESP 16
[2016-12-28] MEDS: ASPIRIN 81 MG TAB PO SCH (10:03)
[2016-12-28] MEDS: LEVETIRACETAM 500 MG TAB PO SCH (10:03)
[2016-12-28] MEDS: DONEPEZIL 10 MG TAB PO SCH (10:04)
[2016-12-28] MEDS: CHOLECALCIFEROL 1,000 UNIT TAB PO SCH (10:04)
[2016-12-28] MEDS: ASCORBIC ACID 500 MG TAB PO SCH (10:04)
[2016-12-28] MEDS: ENOXAPARIN 30 MG/0.3 ML SYG SC SCH (10:09)
[2016-12-28] MEDS: CALCIUM CARBONATE 500 MG CHEW TAB PO SCH ×3 (10:14→18:52)
--- NOTE | 2016-12-28 13:38 | CONS ---
Date/Time of Note Date/Time of Note DATE: 12/28/16 TIME: 13:37 Assessment/Plan Assessment/Plan Additional Assessment/Plan 66 yo female with 1. Recurrent Urinary tract infection 2. Dehydration 3. Acute kidney injury 2nd to above, baseline CKD stage IV 4. Dementia. 5. Hypothyroidism. 6. History of seizure disorder. 7. History of cerebrovascular accident. 8. B/L Non obstructing Renal Calculi 9. Hypernatremia Renal function stable and improved. Na Improved and stable Hyperkalemia Resolve Change IVFs to D5W DC planning Consultation Date/Type/Reason Admit Date/Time Dec 10, 2016 at 22:20 Initial Consult Date 12/12/16 Type of Consultation: Nephrology Referring Provider: NEFTALI KEN 24 HR Interval Summary Constitutional: No requiring O2 Exam/Review of Systems Vital Signs Vitals Vital Signs Date Time Temp Pulse Resp B/P Pulse Ox O2 Delivery O2 Flow Rate FiO2 12/28/16 07:55 98.0 90 16 101/63 95 Intake and Output 12/27/16 12/27/16 12/28/16 15:00 23:00 07:00 Intake Total 160 ml 1860 ml 540 ml Balance 160 ml 1860 ml 540 ml Exam Constitutional: No distress ENMT: mucosa pink and moist Respiratory: No labored breathing Cardiovascular: regular rate and rhythm Neurological: No lethargic Results Result Diagram: 12/28/16 0510 12/28/16 0510 Results 24 hrs Laboratory Tests Test 12/28/16 05:10 Anion Gap 17 H Basophils # 0.0 Basophils % 0.8 Blood Morphology Comment Blood Urea Nitrogen 54 H Calcium Level 9.2 Carbon Dioxide Level 18 L Chloride Level 115 H Creatinine 2.09 H Eosinophils # 0.2 Eosinophils % 4.7 Glucose Level 87 Hematocrit 29.6 L Hemoglobin 10.1 L Lymphocytes # 1.9 Lymphocytes % 37.6 Mean Corpuscular Hemoglobin 30.7 Mean Corpuscular Hemoglobin Concent 34.0 Mean Corpuscular Volume 90.2 Mean Platelet Volume 8.2 Monocytes # 0.6 Monocytes % 12.8 H Neutrophils # 2.2 Neutrophils % 44.1 Nucleated Red Blood Cells # 0.0 Nucleated Red Blood Cells % 0.0 Platelet Count 333 Potassium Level 4.3 Red Blood Count 3.28 L Red Cell Distribution Width 15.2 H Sodium Level 146 H White Blood Count 5.0 Medications Medications Current Medications Enoxaparin Sodium (Lovenox) 30 mg DAILY SC Last administered on 12/28/16 10:09 ; Admin Dose 30 MG; Start 12/11/16 at 09:00 Morphine Sulfate (morphine) 2 mg Q2H PRN IV PAIN Last administered on 09:55; Admin Dose 2 MG; Start 12/11/16 at 00:00 Ondansetron HCl (Zofran Inj) 4 mg Q6H PRN IV NAUSEA AND/OR VOMITING Last administered on 12/13/16 10:22; Admin Dose 4 MG; Start 12/11/16 at 00:00 Acetaminophen (Tylenol Tab) 650 mg Q4H PRN PO FOR MILD PAIN ; Start 12/11 at 00:00 Ascorbic Acid (Vitamin C) 500 mg BID PO Last administered on 12/28/16 10:04; Admin Dose 500 MG; Start 12/11/16 at 09:00 Aspirin (Aspirin) 81 mg DAILY PO Last administered on 12/28/16 10:03; Admin Dose 81 MG; Start 12/11/16 at 09:00 Bisacodyl (Dulcolax Supp) 10 mg Q24H PRN [place] CONSTIPATION; Start 12/11/16 at 00: 00 Cholecalciferol (Vitamin D) 3,000 unit DAILY PO Last administered on 12/28/16 10:04; Admin Dose 3,000 UNIT; Start 12/11/16 at 09:00 Docusate Sodium (Colace) 100 mg BID PRN PO CONSTIPATION; Start 12/11/16 at 00: 00 Magnesium Hydroxide (Milk Of Mag) 30 ml Q24H PRN PO CONSTIPATION; Start at 00:00 Pantoprazole (Protonix Tab) 40 mg DAILY@06 PO Last administered on 12/28/16 06 :12; Admin Dose 40 MG; Start 12/11/16 at 06:00 Donepezil HCl 10 mg 10 mg DAILY PO Last administered on 12/28/16 10:04; Admin Dose 10 MG; Start 12/11/16 at 09:00 Sodium Chloride (1/2 NS) 1,000 ml @ 80 mls/hr [id number] IV Last administered on 12/28/16 10:03; Admin Dose 80 MLS/HR; Start 12/24/16 at 15:00 Levetiracetam (Keppra) 500 mg BID PO Last administered on 12/28/16t 10:03; Admin Dose 500 MG; Start 12/26/16 at 21:00 NANI COLEMAN MD Dec 28, 2016 13:38
[2016-12-28] MEDS ORDERED: DEXTROSE 5% 1,000 ML IV SCH (14:00)
--- NOTE | 2016-12-29 08:16 | DS ---
DATE OF ADMISSION: 12/10/2016 DATE OF DISCHARGE: 12/28/2016 FINAL DIAGNOSES: 1. Escherichia coli extended-spectrum beta-lactamase urinary tract infection status post treatment. 2. Dehydration, resolved. 3. Acute kidney injury on top of chronic kidney disease. 4. Dementia. 5. Hypothyroidism. 6. History of seizure disorder. 7. History of cerebrovascular accident. BRIEF HISTORY: The patient is a 66-year-old female who was [facility] due to a left lower quadrant abdominal pain. The patient was diagnosed with a urinary tract infect ion per urinalysis. HOSPITAL COURSE: The patient underwent an abdominal CT on admission which revealed bilateral nonobs tructing renal calculi. The patient was admitted for further evaluation and management. Patient als o noted to have increased creatinine. HOSPITAL COURSE: Urine culture came back positive for E. coli ESBL. The patient completed treatmen t with imipenem, however, the patient's creatinine is elevated to 2. Patient was followed by Dr. Givens and Dr. Guy from a nephrology consultation. The patient was given IV fluids. The patient's T SH was elevated. The patient's Synthroid dose was increased. The patient's condition improved. Th e patient denies any abdominal pain, was able to tolerate diet well. Urine output is adequate. The patient's baseline creatinine is now about 2 which is consistent with chronic kidney disease, stage IV per nephrology. The patient is [facility] facility. CONDITION ON DISCHARGE: Hemodynamically stable. ACTIVITY: As patient tolerates. DIET: Renal diet. DISCHARGE MEDICATIONS: 1. Tylenol. 2. Vitamin C. 3. Aspirin. 4. Dulcolax. 5. Tums. 6. Cholecalciferol. 7. Colace. 8. Donepezil. 9. Keppra. 10. Synthroid 250 mcg p.o. before breakfast. 11. Milk of magnesium p.r.n. for constipation. 12. Protonix 40 mg p.o. daily. 13. Cranberry extract. Interdisciplinary plan of care was established for this patient. Plan of care was discussed with Dr Mag Ferrara. Dictated By: NEFTALI KEN NEWS REEL CAMERAMAN for HEIKE FERRARA MD SR/NTS Conf#: [id number] DID#: [id number]
== END 2016-12-28 09:30 | DRG 690 ==
LOC: E/R 19:55 → MS2 22:20
PROVIDERS: ADMIT Internal Medicine; ATTEND Internal Medicine
DX: N13.6 Pyonephrosis (principal); N17.9 Acute kidney failure, unspecified; E87.0 Hyperosmolality and hypernatremia; I95.9 Hypotension, unspecified; N18.4 Chronic kidney disease, stage 4 (severe); F03.90 Unspecified dementia, unspecified severity, without behavioral disturbance, psychotic disturbance, mood disturbance, and anxiety; E86.0 Dehydration; E03.9 Hypothyroidism, unspecified; G40.909 Epilepsy, unspecified, not intractable, without status epilepticus; Z86.73 Personal history of transient ischemic attack (TIA), and cerebral infarction without residual deficits; Z79.82 Long term (current) use of aspirin; F17.200 Nicotine dependence, unspecified, uncomplicated; D63.1 Anemia in chronic kidney disease; B96.20 Unspecified Escherichia coli [E. coli] as the cause of diseases classified elsewhere
CPT/HCPCS: 36415; 74176; 80048; 80053; 81001; 81003; 82533; 83690; 84155; 84300; 84439; 84443; 85025; 87081; 87086; 96365; 96375; J0696; J0743; J1650; J1885; J2270; J2405; J7030; J7042; J7070

== ENCOUNTER 2017-01-23 14:24 | Inpatient (IN) | payer MEDICARE, MEDICAID ==
[~2017-01-23] VITALS: Ht 152.4 cm; Wt 48.9 kg
[~2017-01-23 14:24] MED LIST changes: -LEVE500S9 PO; +LEVE750T70 PO; +LEVO200T45 PO; -RTPRO HHN
[2017-01-23] MEDS ORDERED: ONDANSETRON 4 MG INJ IV STA (14:59)
[2017-01-23] MEDS ORDERED: morphine 4 MG/ML VIAL IV STA (14:59)
[2017-01-23] MEDS ORDERED: SOD CHLORIDE 0.9% 500 ML IV STA (14:59)
[2017-01-23 15:31] LABS: ADD UMIC YES; BASOPHILS % 0.4 % (0.0-2.0); EOSINOPHILS # 0.3 10^3/ul (0.0-0.5); EOSINOPHILS % 4.1 % (0.0-7.0); HEMATOCRIT 39.1 % (37.0-47.0); HEMOGLOBIN 12.8 g/dl (12.0-16.0); LYMPHOCYTES # 2.5 10^3/ul (0.8-2.9); LYMPHOCYTES % 31.5 % (15.0-51.0); MEAN CORPUSCULAR HEMOGLOBIN 29.3 pg (29.0-33.0); MEAN CORPUSCULAR HGB CONC 32.7 g/dl (32.0-37.0); MEAN CORPUSCULAR VOLUME 89.6 fl (82.0-101.0); MEAN PLATELET VOLUME 8.3 fl (7.4-10.4); MONOCYTE # 0.9 10^3/ul (0.3-0.9); MONOCYTES % 11.3 % (0.0-11.0); NEUTROPHIL # 4.2 10^3/ul (1.6-7.5); NEUTROPHILS % 52.7 % (39.0-77.0); PLATELET COUNT 271 10^3/UL (140-440); RED BLOOD COUNT 4.36 10^6/ul (4.20-5.40); RED CELL DISTRIBUTION WIDTH 13.5 % (11.5-14.5); URINE BILIRUBIN (Dip) NEGATIVE (NEGATIVE); URINE BLOOD (Dip) 1+ (NEGATIVE); URINE COLOR LT. YELLOW (YELLOW); URINE GLUCOSE (Dip) NEGATIVE (NEGATIVE); URINE KETONES (Dip) NEGATIVE (NEGATIVE); URINE LEUKOCYTE ESTERASE (Dip) 3+ (NEGATIVE); URINE NITRITE (Dip) NEGATIVE (NEGATIVE); URINE TOTAL PROTEIN (Dip) TRACE (NEGATIVE); URINE UROBILINOGEN (Dip) 0.2 E.U./dL (0.1-1.0)
[2017-01-23 15:33] LABS: CONDITION 1
[2017-01-23 15:50] LABS: BACTERIA,URINE MODERATE
[2017-01-23 15:55] LABS: POTASSIUM 4.5 mmol/L (3.5-5.1)
[2017-01-23 15:57] LABS: ALBUMIN/GLOBULIN RATIO 1.05; CREATININE 1.85 mg/dl (0.44-1.00); TOTAL PROTEIN 7.8 g/dl (6.1-8.1)
[2017-01-23 15:58] LABS: CALCIUM 9.3 mg/dl (8.4-10.2)
[2017-01-23] MEDS ORDERED: CEFTRIAXONE 1 GM/50 ML (PMX) 50 ML IVPB ONE (17:00)
[2017-01-23 17:04] VITALS: TEMP 97.7
--- NOTE | 2017-01-23 18:21 | RADRPT ---
PROCEDURE: CT abdomen and pelvis without contrast. CLINICAL INDICATION: Abdominal and back pain TECHNIQUE: CT scan of the abdomen and pelvis without contrast was performed. Sagittal and coronal reformatted images were obtained from the axial source images. CTDI = 15.13 mGy; DLP = 703.25 mGy-c m COMPARISON: CT 12/10/2016 FINDINGS: Visualized lower thorax: Linear scarring or subsegmental atelectasis in the posterior left lung bas e is similar to the previous examination with some lingular scarring. A tiny scattered sub 5 mm nod ules of the lung bases are stable in size and number compared to the prior exam. There is no eviden ce for pleural effusion. Liver, gallbladder, pancreas and spleen: The liver is normal and size, contour and attenuation. Th ere is no evidence for a liver mass or ductal dilatation. Changes of cholecystectomy without surgic al clips are again noted. No common bile duct abnormality is demonstrated. The pancreas is unremar kable. The spleen is normal in size. Adrenal glands and genitourinary system: The adrenal glands are normal bilaterally. Bilateral renal atrophy is again noted most likely related to renal failure. Calcified intrarenal calculus of the right posterior interpolar region is again seen estimated 4 mm. There is no evidence of hydronephro sis. Left-sided lower pole renal calculi are again seen unchanged the aggregate dimension approxima tely 5 mm. Left renal atrophy is again noted with no hydronephrosis. The ureters are unremarkable. The urinary bladder is contracted and difficult to evaluate. There is an an XR unremarkable for th e patient's age. Gastrointestinal system: The stomach is normal in caliber with no abnormality of significance. The small bowel is normal in caliber with no ileus, obstruction or wall thickening. There is no evidenc e of appendicitis. The colon shows no evidence for wall thickening or acute abnormality. There is no evidence for colitis or diverticulitis. Peritoneum, retroperitoneum, lymph nodes and vessels: The abdominal aorta is normal in caliber. The re is severe aortic and iliac system atherosclerotic calcification. The inferior vena cava is unrem arkable. There is no evidence for adenopathy or mass. There is no ascites. Osseous structures and musculoskeletal findings: Demineralization, levoscoliosis and multilevel deg enerative disk disease with spondylosis most pronounced at L3-4 L4-5 is again noted. There is no ev idence of fracture, lytic or blastic lesion. At the level of the abdominal midline and stomach ther e is a stable of the defect unable to exclude with a gastroenteric fistula (series 3 image 31) the d istal greater curvature of the stomach, adjacent fat and the subcutaneous fat in this region are con tiguous in appearance. No muscular abnormality is demonstrated. RPTAT:HJJR IMPRESSION: 1. Stable bilateral nonobstructing renal calculi in this patient with renal atrophy, the appearance of the genitourinary system unchanged from 12/10/2016. 2. Anterior midline tract is of concern communicating of the distal greater curvature of the stomac h to the skin surface unable to exclude a gastroenteric fistula in the proper clinical setting. Cor relation to skin drainage is suggested, findings are stable compared to the prior exam. 3. Stable size and number of multiple lung base micronodules likely post infectious/inflammatory. 4. Demineralization, degenerative spondylosis and levoscoliosis of the lumbar spine unchanged from the prior exam. Physician Malachi Date Time Electronically viewed and signed by Physician Malachi on 01/23/2017 18:21 /
--- NOTE | 2017-01-23 19:20 | ERA ---
ER Documentation Chief Complaint Date/Time DATE: 01/23/17 TIME: 19:07 Chief Complaint lower back pain started today denies fall or injury HPI This is a 66-year-old female that presents to the emergency department complaining lower back pain that began roughly an hour prior to arrival. The patient resides in [facility]. She arrived by EMS. She indicates there is no recent or remote trauma to her lower back. She states the pain is a dull achy sensation, present at rest but most prominent on the flank region. The patient states there is no pain in her lower abdomen. She has had no fevers no shaking or chills. She denies any chest pain or pressure that radiates to the neck arm back or jaw. She does complain of painful urination that began earlier today with urgency and frequency regarding previous records the patient has chronic obstructive pyelonephritis, hyperlipidemia, hypothyroidism and GERD. Her primary care physician is Dr. Mcginnis. ROS All systems reviewed and are negative except as per history of present illness. Medications Home Meds Reported Medications Levetiracetam* (Keppra*) 750 Mg Tablet, 750 MG PO BID, TAB 12/10/16 Levothyroxine Sodium* (Levoxyl*) 200 Mcg Tablet, 300 MCG PO BEFORE BREAKFAST, # 30 TAB 12/10/16 Acetaminophen* (Tylenol*) 325 Mg Tablet, 650 MG PO Q4H Y for FOR MILD PAIN -, TAB 07/11/16 Acetaminophen* (Tylenol*) 325 Mg Tablet, 650 MG PO Q4H, TAB FOR TEMP>101F 07/11/16 Cholecalciferol* (Vitamin D3*) 1,000 Unit Tablet, 3000 UNIT PO DAILY, TAB 07/11/16 Ascorbic Acid (Vitamin C) 500 Mg Tab, 500 MG PO BID, TAB 07/11/16 Cranberry Fruit (CRANBERRY) 450 Mg Tablet, 900 MG PO DAILY, TAB 07/11/16 Bisacodyl* (Dulcolax*) 10 Mg/Supp.rect Supp.rect, 10 MG [place] Q24H Y for CONSTIPATION, SUPP.RECT 04/28/16 Magnesium Hydroxide* (Milk Of Magnesia*) 400 Mg/5 Ml Oral.susp, 30 ML PO Q24H Y for CONSTIPATION, ML 04/28/16 Dexlansoprazole (Dexilant) 60 Mg Vasquez., 60 MG PO AC BREAKFAST, #30 CAP 04/28/16 Donepezil* (Donepezil*) 10 Mg Tablet, 10 MG PO DAILY, #30 TAB 04/28/16 Docusate Sodium* (Colace*) 100 Mg Capsule, 100 MG PO BID Y for CONSTIPATION, # 60 CAP 04/28/16 Aspirin* (Aspirin* Chew) 81 Mg Tab.chew, 81 MG PO DAILY, TAB.CHEW 04/28/16 Allergies Allergies: Coded Allergies: peanut (Verified Allergy, Unknown, 01/23/17) PMhx/Soc History of Surgery: Yes (cholecystectomy, lithotripsy, jj stent placement) Anesthesia Reaction: No Hx Neurological Disorder: Yes (CVA, SEIZURES) Hx Respiratory Disorders: No Hx Cardiac Disorders: No Hx Psychiatric Problems: Yes (DEMETIA) Hx Miscellaneous Medical Probl: Yes (ANEMIA) Hx Alcohol Use: No Hx Substance Use: No Hx Tobacco Use: Yes Smoking Status: Unknown if ever smoked Physical Exam Vitals Vital Signs Date Time Temp Pulse Resp B/P Pulse Ox O2 Delivery O2 Flow Rate FiO2 01/23/17 17:04 97.7 81 16 117/75 100 Room Air 01/23/17 14:29 98.1 101 18 131/88 98 Physical Exam Constitutional:Well-developed. Well-nourished. HEENT:Normocephalic. Atraumatic.Pupils were equal round reactive to light. Moist mucous membranes.No tonsillar exudates. Neck: No nuchal rigidity. No lymphadenopathy. No posterior cervical spine tenderness or step-offs. Respiratory: Not using accessory muscles of respiration.Lungs were clear to auscultation bilaterally. No rhonchi. No rales. No wheezing. Cardiovascular: Regular rate regular rhythm.No murmurs. No rubs were appreciated.S1, S2 normal. Distal pulses are palpable 2+ bilaterally. GI: Abdomen was soft. Nontender. Non Distended. No pulsatile abdominal masses or bruits. No rebound. No guarding. Bowel sounds were present and normal. Bilateral CVA tenderness peer Muscle skeletal: Full range of motion of both the upper and lower extremities bilaterally.Normal muscle tone.No assymetrical calf tenderness or swelling. No tenderness with palpation or percussion of the thoracic or lumbar spinous processes Skin: No petechia, no purpura. No lesions on the palms or the soles of the feet. No maculopapular rash. NEURO: Patient was alert, awake, orientated x3.No facial droop. Gait not observed as patient states she is unable to ambulate. Speech had regular rate and rhythm. No focal neurological deficits. Result Diagram: 01/23/17 1518 01/23/17 1518 Results 24 hrs Laboratory Tests Test 01/23/17 15:18 Alanine Aminotransferase (ALT/SGPT) 22IU/L Albumin 4.0g/dl Albumin/Globulin Ratio 1.05 Alkaline Phosphatase 156IU/L Amylase Level 125U/L Anion Gap 22 Aspartate Amino Transf (AST/SGOT) 19IU/L Basophils # 0.010^3/ul Basophils % 0.4% Blood Urea Nitrogen 49mg/dl Calcium Level 9.3mg/dl Carbon Dioxide Level 23mmol/L Chloride Level 106mmol/L Creatinine 1.85mg/dl Direct Bilirubin 0.00mg/dl Eosinophils # 0.310^3/ul Eosinophils % 4.1% Globulin 3.80g/dl Glucose Level 78mg/dl Hematocrit 39.1% Hemoglobin 12.8g/dl Indirect Bilirubin 0.0mg/dl Lipase 418U/L Lymphocytes # 2.510^3/ul Lymphocytes % 31.5% Mean Corpuscular Hemoglobin 29.3pg Mean Corpuscular Hemoglobin Concent 32.7g/dl Mean Corpuscular Volume 89.6fl Mean Platelet Volume 8.3fl Monocytes # 0.910^3/ul Monocytes % 11.3% Neutrophils # 4.210^3/ul Neutrophils % 52.7% Nucleated Red Blood Cells # 0.010^3/ul Nucleated Red Blood Cells % 0.0/100WBC Platelet Count 10969^3/UL Potassium Level 4.5mmol/L Red Blood Count 4.3610^6/ul Red Cell Distribution Width 13.5% Sodium Level 146mmol/L Total Bilirubin 0.0mg/dl Total Protein 7.8g/dl Urine Bacteria MODERATE Urine Bilirubin NEGATIVE Urine Clarity SLIGHTLY CLOUDY Urine Color LT. YELLOW Urine Epithelial Cells MODERATE Urine Glucose NEGATIVE% Urine Hemoglobin 1+ Urine Ketones NEGATIVE Urine Leukocyte Esterase 3+ Urine Microscopic RBC 5-10/HPF Urine Microscopic WBC >200/HPF Urine Nitrite NEGATIVE Urine Specific [place] 1.010 Urine Total Protein TRACE Urine Urobilinogen 0.2 E.U./dL Urine pH 6.0 White Blood Count 8.010^3/ul Current Medications Medications (Trade) Dose Ordered Sig/[place] Route PRN Reason Start Time Stop Time Status Last Admin Dose Admin Sodium Chloride (NS) 500 ml @ 500 mls/hr Q1H STAT IV 01/23/17 14:59 01/23/17 15:58 DC 01/23/17 15:16 Morphine Sulfate (morphine) 4 mg ONCE STAT IV 01/23/17 14:59 01/23/17 15:00 DC 01/23/17 15:16 Ondansetron HCl 4 mg 4 mg ONCE STAT IV 01/23/17 14:59 01/23/17 15:00 DC 01/23/17 15:16 Ceftriaxone Sodium (Rocephin) 50 ml @ 100 mls/hr ONCE ONCE IVPB 01/23/17 17:00 01/23/17 17:29 DC 01/23/17 16:59 Procedures/MDM The patient presented to the emergency department with back pain. My differential diagnosis included but was not limited to spinal origins of the pain such as fracture, osteomyelitis, epidural abscess, neoplasm, spondylolishtesis, discogenic, cauda equina syndrome or musculoligamentous. Nonspinal causes such as AAA, upper UTI, renal colic, aortic dissection, abdominal neoplasm were also considered as an etiology into their pain. IV access had been established by nursing staff and the patient did not have any physical exam findings to suggest cauda equina she denied any changes in her bladder or bowel frequency, no saddle anesthesia and rectal exam indicated normal sphincter tone. CT scan of the abdomen indicated the following which was ordered and reviewed by myself as well as the radiologist: 1. Stable bilateral nonobstructing renal calculi in this patient with renal atrophy, the appearance of the genitourinary system unchanged from 12/10/2016. 2. Anterior midline tract is of concern communicating of the distal greater curvature of the stomach to the skin surface unable to exclude a gastroenteric fistula in the proper clinical setting. Correlation to skin drainage is suggested, findings are stable compared to the prior exam. 3. Stable size and number of multiple lung base micronodules likely post infectious/inflammatory. 4. Demineralization, degenerative spondylosis and levoscoliosis of the lumbar spine unchanged from the prior exam. The patient has an elevation of her BUN and creatinine but this appears to be at her baseline from previous review of her medical records. The patient received intravenous morphine and Zofran for analgesic control. The patient had a urinalysis that was positive for UTI. Urine culture was obtained. She was given IV ceftriaxone. Given her multiple comorbidities I do feel she required admission for IV antibiotics and will be admitted to her primary care physician Dr. Mcginnis in serious condition to the medical floor. Departure Diagnosis: Primary Impression: Back pain Qualified Code: M54.5 - Acute bilateral low back pain without sciatica Additional Impression: Urinary tract infection Qualified Code: N30.00 - Acute cystitis without hematuria Condition: Serious FREDO [place] Jan 23, 2017 19:19
[2017-01-23] MEDS ORDERED: ACETAMINOPHEN 325 MG TAB PO PRN ×2 (20:00→22:00)
[2017-01-23] MEDS ORDERED: ONDANSETRON 4 MG INJ IV PRN ×2 (20:00→22:00)
[2017-01-23 20:45] VITALS: BP 110/55; PULSE 88; RESP 20
[2017-01-23 21:41] VITALS: Ht 152.4 cm; Wt 48.9 kg
[2017-01-23] MEDS ORDERED: BISACODYL 10 MG SUPP PR PRN (22:00)
[2017-01-23] MEDS ORDERED: morphine 2 MG INJ IV PRN (22:00)
[2017-01-23] MEDS ORDERED: MAGNESIUM HYDROXIDE 30ML CUP PO PRN (22:00)
[2017-01-23] MEDS: SOD CHLORIDE 0.45% 1,000 ML IV SCH (22:18)
[2017-01-23] MEDS: IMIPENEM-CILAST 500MG IV (PMX) 100 ML IVPB SCH (22:48)
[2017-01-24] MEDS ORDERED: IMIPENEM-CILAST 500MG IV (PMX) 100 ML IVPB SCH
[2017-01-24] MEDS: PANTOPRAZOLE (EC) 40 MG TAB PO SCH (06:15)
[2017-01-24] MEDS: LEVOTHYROXINE 75 MCG TAB PO SCH (06:15)
[2017-01-24 06:25] LABS: POTASSIUM 4.6 mmol/L (3.5-5.1)
[2017-01-24 06:28] LABS: CREATININE 1.87 mg/dl (0.44-1.00)
[2017-01-24 06:29] LABS: CALCIUM 9.1 mg/dl (8.4-10.2)
[2017-01-24 07:39] VITALS: BP 98/57; RESP 20
[2017-01-24 08:03] LABS: BASOPHILS % 0.6 % (0.0-2.0); EOSINOPHILS # 0.3 10^3/ul (0.0-0.5); EOSINOPHILS % 6.2 % (0.0-7.0); HEMATOCRIT 34.7 % (37.0-47.0); HEMOGLOBIN 10.8 g/dl (12.0-16.0); LYMPHOCYTES # 1.1 10^3/ul (0.8-2.9); LYMPHOCYTES % 23.3 % (15.0-51.0); MEAN CORPUSCULAR HEMOGLOBIN 29.1 pg (29.0-33.0); MEAN CORPUSCULAR HGB CONC 31.1 g/dl (32.0-37.0); MEAN CORPUSCULAR VOLUME 93.5 fl (82.0-101.0); MEAN PLATELET VOLUME 10.1 fl (7.4-10.4); MONOCYTE # 0.6 10^3/ul (0.3-0.9); MONOCYTES % 12.3 % (0.0-11.0); NEUTROPHIL # 2.8 10^3/ul (1.6-7.5); NEUTROPHILS % 57.4 % (39.0-77.0); PLATELET COUNT 250 10^3/UL (140-415); RED BLOOD COUNT 3.71 10^6/ul (4.20-5.40); RED CELL DISTRIBUTION WIDTH 12.8 % (11.5-14.5); WHITE BLOOD COUNT 4.8 10^3/ul (4.8-10.8)
[2017-01-24] MEDS: ASPIRIN 81 MG TAB PO SCH (08:31)
[2017-01-24] MEDS: DOCUSATE SODIUM 100 MG CAP PO SCH ×2 (08:31→21:34)
[2017-01-24] MEDS: CHOLECALCIFEROL 1,000 UNIT TAB PO SCH (08:31)
[2017-01-24] MEDS: LEVETIRACETAM 750 MG TAB PO SCH ×3 (08:31→21:34)
[2017-01-24] MEDS: IMIPENEM-CILAST 500MG IV (PMX) 100 ML IVPB SCH ×2 (08:31→21:34)
[2017-01-24] MEDS: ENOXAPARIN 30 MG/0.3 ML SYG SC SCH (08:41)
[2017-01-24] MEDS ORDERED: DOCUSATE SODIUM 100 MG CAP PO PRN (10:30)
[2017-01-24] MEDS ORDERED: ACETAMINOPHEN 325 MG TAB PO SCH (10:30)
[2017-01-24] MEDS ORDERED: MAGNESIUM HYDROXIDE 30ML CUP PO PRN (10:30)
[2017-01-24] MEDS ORDERED: BISACODYL 10 MG SUPP PR PRN (10:30)
[2017-01-24] MEDS ORDERED: ACETAMINOPHEN 325 MG TAB PO PRN (10:30)
[2017-01-24] MEDS ORDERED: CHOLECALCIFEROL 1,000 UNIT TAB PO SCH (10:30)
--- NOTE | 2017-01-24 10:40 | HP ---
Date/Time of Note Date/Time of Note DATE: 01/24/17 TIME: 10:08 Assessment/Plan VTE Prophylaxis VTE Prophylaxis Intervention: LMWH Lines/Catheters IV Catheter Type (from Nrsg): Saline Lock Assessment/Plan Assessment/Plan -Back pain -Acute bilateral low back pain without sciatica -Urinary tract infection -Zosyn - fu urine culture Acute cystitis without hematuria - Seizure disorder - seizure precautions - Keppra - Hypothyroidism - check TSH am - GERD - Acute Kidney Injury- BUN/cr = 49/1.85 as baseline.Today BUN/cr = 41/1.87 - cont to monitor renal functions - will get nephrology consult when needed - CVA - Dementia - Anemia - sp lithotripsy with j-stent placement PLAN - Admit to [facility] - Lovenox for DVT - Protonix for GI prophylaxis - PT eval. prashant Mcginnis HPI/ROS Admit Date/Time Admit Date/Time Jan 23, 2017 at 19:36 Hx of Present Illness lower back pain started today denies fall or injury HPI This is a 66-year-old female that presents to the emergency department complaining lower back pain that began roughly an hour prior to arrival. The patient resides in [facility]. She arrived by EMS. She indicates there is no recent or remote trauma to her lower back. She states the pain is a dull achy sensation, present at rest but most prominent on the flank region. The patient states there is no pain in her lower abdomen. She has had no fevers no shaking or chills. She denies any chest pain or pressure that radiates to the neck arm back or jaw. She does complain of painful urination that began earlier today with urgency and frequency regarding previous records the patient has chronic obstructive pyelonephritis, hyperlipidemia, hypothyroidism and GERD. Her primary care physician is Dr. Mcginnis. Patient got admitted under physician Dr. Mcginnis for IV antibiotics on medical floor. ER COURRSE: 1. IV access had been established by nursing staff and the patient did not have any physical exam findings to suggest cauda equina she denied any changes in her bladder or bowel frequency, no saddle anesthesia and rectal exam indicated normal sphincter tone. 1. CT scan of the abdomen - Stable bilateral nonobstructing renal calculi in this patient with renal atrophy, the appearance of the genitourinary system unchanged from 12/10/2016. - Anterior midline tract is of concern communicating of the distal greater curvature of the stomach to the skin surface unable to exclude a gastroenteric fistula in the proper clinical setting. Correlation to skin drainage is suggested, findings are stable compared to the prior exam. - Stable size and number of multiple lung base micronodules likely post infectious/inflammatory. - Demineralization, degenerative spondylosis and levoscoliosis of the lumbar spine unchanged from the prior exam. 2. Elevated BUN and creatinine - but this appears to be at her baseline from previous review of her medical records. 3. Intravenous morphine and Zofran for analgesic control- given. 4. UA positive for UTI. 5. Urine culture - FU was obtained. IV ceftriaxone given. ROS All systems reviewed and are negative except as per history of present illness. Medications Home Meds Reported Medications Levetiracetam* (Keppra*) 750 Mg Tablet, 750 MG PO BID, TAB 12/10/16 Levothyroxine Sodium* (Levoxyl*) 200 Mcg Tablet, 300 MCG PO BEFORE BREAKFAST, # 30 TAB 12/10/16 Acetaminophen* (Tylenol*) 325 Mg Tablet, 650 MG PO Q4H Y for FOR MILD PAIN -, TAB 07/11/16 Acetaminophen* (Tylenol*) 325 Mg Tablet, 650 MG PO Q4H, TAB FOR TEMP>101F 07/11/16 Cholecalciferol* (Vitamin D3*) 1,000 Unit Tablet, 3000 UNIT PO DAILY, TAB 07/11/16 Ascorbic Acid (Vitamin C) 500 Mg Tab, 500 MG PO BID, TAB 07/11/16 Cranberry Fruit (CRANBERRY) 450 Mg Tablet, 900 MG PO DAILY, TAB 07/11/16 Bisacodyl* (Dulcolax*) 10 Mg/Supp.rect Supp.rect, 10 MG [place] Q24H Y for CONSTIPATION, SUPP.RECT 04/28/16 Magnesium Hydroxide* (Milk Of Magnesia*) 400 Mg/5 Ml Oral.susp, 30 ML PO Q24H Y for CONSTIPATION, ML 04/28/16 Dexlansoprazole (Dexilant) 60 Mg Vasquez., 60 MG PO AC BREAKFAST, #30 CAP 04/28/16 Donepezil* (Donepezil*) 10 Mg Tablet, 10 MG PO DAILY, #30 TAB 5/28/16 Docusate Sodium* (Colace*) 100 Mg Capsule, 100 MG PO BID Y for CONSTIPATION, # 60 CAP 04/28/16 Aspirin* (Aspirin* Chew) 81 Mg Tab.chew, 81 MG PO DAILY, TAB.CHEW 04/28/16 Allergies Allergies: Coded Allergies: peanut (Verified Allergy, Unknown, 01/23/17) ROS Eyes: no complaints ENT: no complaints Respiratory: no complaints Cardiovascular: no complaints Gastrointestinal: no complaints Genitourinary: no complaints Musculoskeletal: back pain (better than before) Skin: no complaints Neurologic: no complaints Endocrine: no complaints Lymphatic: no complaints Psychological: no complaints Immunologic: no complaints PMH/Family/Social Past Medical History PMhx/Soc History of Surgery: Yes (cholecystectomy, lithotripsy, jj stent placement) Anesthesia Reaction: No Hx Neurological Disorder: Yes (CVA, SEIZURES) Hx Respiratory Disorders: No Hx Cardiac Disorders: No Hx Psychiatric Problems: Yes (DEMETIA) Hx Miscellaneous Medical Probl: Yes (ANEMIA) Hx Alcohol Use: No Hx Substance Use: No Hx Tobacco Use: Yes Smoking Status: Unknown if ever smoked Social History Smoking Status: Never smoker Exam/Review of Systems Vital Signs Vitals Vital Signs Date Time Temp Pulse Resp B/P Pulse Ox O2 Delivery O2 Flow Rate FiO2 01/24/17 07:39 97.9 92 20 98/57 94 01/23/17 20:45 Room Air Intake and Output 01/23/17 01/23/17 01/24/17 15:00 23:00 07:00 Intake Total 500 ml Balance 500 ml Exam Constitutional: alert, oriented, well developed Psych: nl mood/affect Head: normocephalic Eyes: EOMI, nl sclera ENMT: nl external ears & nose Neck: non-tender Respiratory: clear to auscultation, diminished breath sounds Cardiovascular: nl pulses Gastrointestinal: non-tender, soft Musculoskeletal: nl extremities to inspection Extremities: normal pulses Neurological: nl mental status, nl speech Skin: nl turgor Lymph: nontender Labs Result Diagram: 01/24/1751301/24/17513 Medications Medications Current Medications Aspirin (Aspirin) 81 mg DAILY PO Last administered on 01/24/17 08:31; Admin Dose 81 MG; Start 01/24/17 at 09:00 Docusate Sodium (Colace) 100 mg BID PO Last administered on 01/24/17 08:31; Admin Dose 100 MG; Start 01/24/17 at 09:00 Magnesium Hydroxide (Milk Of Mag) 30 ml DAILY PRN PO CONSTIPATION; Start at 22:00 Bisacodyl (Dulcolax Supp) 10 mg DAILY PRN [place] CONSTIPATION; Start 01/23/17 at 22 :00 Cholecalciferol (Vitamin D) 3,000 unit DAILY PO Last administered on 01/24/17 08:31; Admin Dose 3,000 UNIT; Start 01/24/17 at 09:00 Levothyroxine Sodium (Synthroid) 225 mcg DAILY@06 PO Last administered on 06:15; Admin Dose 75 MCG; Start 01/24/17 at 06:00 Levetiracetam (Keppra) 750 mg BID PO ; Start 01/24/17 at 09:00 Acetaminophen 650 mg 650 mg Q4H PRN PO PAIN AND OR ELEVATED TEMP; Start at 22:00 Sodium Chloride (1/2 NS) 1,000 ml @ 60 mls/hr [id number] IV Last administered on 01/23/17 22:18; Admin Dose 60 MLS/HR; Start 01/23/17 at 22:00 Enoxaparin Sodium (Lovenox) 30 mg DAILY SC Last administered on 01/24/17 08:41 ; Admin Dose 30 MG; Start 01/24/17 at 09:00 Morphine Sulfate (morphine) 2 mg Q3H PRN IV PAIN; Start 01/23/17 at 22:00 Ondansetron HCl (Zofran Inj) 4 mg Q6H PRN IV NAUSEA AND/OR VOMITING; Start at 22:00 Pantoprazole 40 mg 40 mg DAILY@06 PO Last administered on 01/24/17 06:15; Admin Dose 40 MG; Start 01/24/17 at 06:00 Imipenem/ Cilastatin Sodium (Primaxin 500 Mg/ 100 ml (Pmx)) 100 ml @ 100 mls/ hr Q12H IVPB Last administered on 01/24/17 08:31; Admin Dose 100 MLS/HR; Start 01/23/17 at 22:[address] scan of the abdomen - Stable bilateral nonobstructing renal calculi in this patient with renal atrophy, the appearance of the genitourinary system unchanged from 12/10/2016. - Anterior midline tract is of concern communicating of the distal greater curvature of the stomach to the skin surface unable to exclude a gastroenteric fistula in the proper clinical setting. Correlation to skin drainage is suggested, findings are stable compared to the prior exam. - Stable size and number of multiple lung base micronodules likely post infectious/inflammatory. - Demineralization, degenerative spondylosis and levoscoliosis of the lumbar spine unchanged from the prior exam. ROSHAN NEELY Jan 24, 2017 10:20
[2017-01-24] MEDS: DONEPEZIL 10 MG TAB PO SCH (10:58)
--- NOTE | 2017-01-24 13:17 | CONS ---
DATE OF ADMISSION: 01/23/2017 DATE OF CONSULTATION: 01/24/2017 REQUESTING PHYSICIAN: Marvin Mcginnis MD Dear Dr. Mcginnis: Thank you for asking me to see this patient in urological consultation. HISTORY OF PRESENT ILLNESS: Genaro is a well-known patient to me. I have seen her in the past. She did have stones inside her bladder which I removed. She did have a calcified JJ stent which als o was removed, and also the stones in the ureter which also have been removed. The patient has been having recurrent urinary tract infections and that is understandable because she does have also sto anna in her kidney that are also probably infected. The patient has been managed with antibiotics ev ish time she has the infection. She presents at this time with low back pain and abdominal pain. T he patient, therefore, underwent a CT scan of the abdomen and pelvis and that showed that there are stable bilateral nonobstructing renal stones with renal atrophy. It is unchanged from earlier ry of this year. She does have also anterior midline tract, that is of concern, of communicating of the distal greater curvature of the stomach to the skin surface. Unable to exclude a gastroenteric fistula in the proper clinical setting. The patient also does have stable size and number of multi ple lung base micronodules, likely postinfectious and inflammatory, demineralization, degenerative s pondylosis and levoscoliosis of the lumbar spine unchanged from prior exam. The patient presently i s complaining of the abdominal and back pain. There is no nausea or vomiting. She does complain of dysuria; however, the urine is not bloody. PAST MEDICAL HISTORY: As indicated above, the patient has had cystoscopy, cystolitholapaxy, uretero scopy, laser lithotripsy, removal of JJ stent. The patient had also a cholecystectomy in the past. The patient has a history of cerebrovascular accident and seizures, dementia, anemia. SOCIAL HISTORY: She does not smoke, does not drink any alcohol, and in fact, the patient looks now much better than she looked before. She is able to go and walk to the bathroom, which I do not thin k she has been doing before. PHYSICAL EXAMINATION: GENERAL: Reveals a 66-year-old female. She weighs 48.9 kg. She is 60 inches tall. VITAL SIGNS: Temperature is 97.9, pulse is 92, respirations 20, blood pressure 98/57. ABDOMEN: Soft. There is no flank tenderness. There is no abdominal mass palpable. LABORATORY DATA: Her CBC shows a white count of 4.8, hemoglobin 10.8, hematocrit 34.7. Sodium 146, potassium 4.6, chloride 109, CO2 of 24. The BUN is 41, creatinine 1.87 and this appears to be her baseline. The patient does have atrophic kidneys. The urine culture is showing 100,000 gram-negati ve rods and she in the past has had ESBL UTI. IMPRESSION: Urinary tract infection and renal stones that she has had over a long period of time, a nd most likely these are the source of her recurrent infections. RECOMMENDATION: Considering her own situation and that if one was to remove all the stones from her kidneys, she will need multiple procedures and multiple anesthesia. Therefore, it has been decided that we could just treat her symptomatically as she has an infection, treat the infection. Should any stone come down the ureter, then we will go in and remove it. I do thank you for allowing me to help in her care. Dictated By: JENY METZGER/LUIS Conf#: [id number] DID#: [id number]
[2017-01-24] MEDS: SOD CHLORIDE 0.45% 1,000 ML IV SCH (14:31)
--- NOTE | 2017-01-24 17:03 | RADRPT ---
PROCEDURE: XR Abdomen. CLINICAL INDICATION: Kidney stones TECHNIQUE: AP supine abdomen x-ray. COMPARISON: CT abdomen 01/23/2017 FINDINGS: The bowel gas pattern is normal. There is no evidence of obstruction. Overlying the right renal silh ouette is a faint calcification of approximately 4 mm likely corresponding to the intrarenal calculu s seen on the CT. More subtle is a calcification of approximately 3 mm projecting over the left inf erior renal silhouette. There is no obvious calcification along the expected course of either urete r or urinary bladder. There is no evidence of visceromegaly. Levoscoliosis and degenerative spondylosis of the lower lumbar spine is again noted. RPTAT:HJJR IMPRESSION: 1. Faint calcifications overlying the renal silhouettes correspond to the intrarenal calculi seen on the CT of 01/23/2017, unchanged in positions when allowing for the different modalities. 2. Degenerative spondylosis and levoscoliosis of the lumbar spine. 3. No evidence of ileus or bowel obstruction. Physician Malachi Date Time Electronically viewed and signed by Physician Malachi on 01/24/2017 17:03 JR/
--- NOTE | 2017-01-24 17:09 | CONS ---
DATE OF ADMISSION: 01/23/2017 DATE OF CONSULTATION: TYPE OF CONSULTATION: Gastroenterology. Dear Dr. Ferrara: Thank you for asking me to see Mrs. Nation in GI consultation. HISTORY OF PRESENT ILLNESS: The patient, as you know, is a 66-year-old white female who is admitted to the hospital because of abdominal pain and urinary tract infection and back pain. She is being evaluated by Dr. Echeverria for kidney stones and urinary tract infection. From the GI standpoint, the patient has been experiencing abdominal pain for the past few days. She is a very poor historian. She has had nausea and vomiting as well for the past 24 hours. No history of vomiting blood or pass ing blood from the rectum, no diarrhea. No rectal bleeding. She did not have any GI problems in th e past. She did have a cholecystectomy. REVIEW OF SYSTEM: Indicates she has history of back pain, urinary tract infection, history of cysti tis, seizure disorder, hypothyroidism, history of CVA, dementia, anemia, etc. She did have a lithot ripsy and a J stent placement. MEDICATIONS at home includes 1. Keppra. 2. Levoxyl. 3. Tylenol. 4. Vitamin D3. 5. Vitamin C. 6. Cranberry. 7. Dulcolax. 8. Dexilant. 9. Donepezil. 10. Colace. 11. Aspirin. SOCIAL HISTORY: Patient does not smoke or drink. PHYSICAL EXAMINATION: GENERAL: The patient is a 66-year-old white female who at this time, she is alert, she is thin buil t. VITAL SIGNS: She is afebrile, blood pressure 98/57, temperature 97.9, pulse is 92. CARDIOVASCULAR: Normal heart sounds. RESPIRATORY: Normal breath sounds. ABDOMEN: Showed evidence of a soft abdomen, no palpable masses, no tenderness, no distention. LABORATORY WORKUP: WBC count is 4,800, hemoglobin 10.8, platelets 220,000. Potassium 4.6, sodium 1 46, BUN 41, creatinine 1.87. Bilirubin 0.0, AST is 19, ALT 22, alkaline phosphatase 156, amylase 12 5, lipase 418. The CAT scan of the abdomen shows evidence of bilateral kidney stones. There is some abnormality ne ar the stomach, they think it is a fistula of some kind. Lung micronodules noted. Demineralization o f the bones noted. CLINICAL IMPRESSION: From the GI standpoint, the patient has abdominal pain, nausea, vomiting, elev ated amylase and lipase, minimally elevated alkaline phosphatase. It is quite possible we may be yessy ling with a choledocholithiasis. The patient may have passed gallstones to have caused her pancreat itis. History of urinary tract infections, kidney stones, history of CVA. PLAN: At this time recommend MRCP and I will be happy to follow this patient with you. Once again, Dr. Ferrara, thank you for this consultation. Dictated By: MINI PETERSEN MD NC/NTS Conf#: [id number] DID#: [id number] CC: HEIKE FERRARA MD;*EndCC*
--- NOTE | 2017-01-24 18:12 | CONS ---
DATE OF ADMISSION: 01/23/2017 DATE OF CONSULTATION: 01/24/2017 TYPE OF CONSULTATION: Surgical. REQUESTING PHYSICIAN: Dr. Mcginnis's service. REASON FOR CONSULTATION: Abdominal pain, possible gastrocutaneous fistula tract detected on the CT scan. Thank you, Dr. Mcginnis, for the consultation. HISTORY OF PRESENT ILLNESS: This is a 66-year-old female who has been in this hospital many times before for many other reasons including kidney stone and urinary tract infection, and now in the past 3 to 4 days the patient has been having low back pain and also nausea and vomiting, and so eventually came to the emergency room. She was seen in the emergency room by the emergency room physician. The vital signs in the emergency room were as follows temperature 98.1, pulse rate 101, respirations 18, blood pressure 130/70 LABORATORY/DIAGNOSTIC DATA: Workup which showed urine leukocyte esterase 3+, urine microscopic of 5 to 10 red blood cells and more than 200 WBCs, moderate epithelial and moderate bacteria. Nitrite was negative. They did a hemogram, WBC was 8000, hemoglobin 12.8, hematocrit 39.1, neutrophils 52%. Chemistry was sodium 146, potassium 4.5, BUN 49 elevated, creatinine 1.85, elevated. Alkaline phosphatase 156. Amylase was 125 high, and lipase was 418 high. They did evaluate patient with an abdominal CT scan which showed the following pathology impression of the CT scan: 1. Stable bilateral nonobstructing renal calculi in this patient with renal atrophy. The appearance of the genitourinary system unchanged from 12/10/2016. 2. Anterior midline tract is of concern, communicating of the distal greater curvature of the stomach to the skin surface, unable to exclude a gastroenteric fistula in the proper clinical setting. Correlation to skin drainage is suggested. Findings are stable compared to the prior exam. 3. Stable size and number of multiple lung base micronodules, likely postinfectious/inflammatory. 4. Demineralization, degenerative spondylosis and levoscoliosis of the lumbar spine, unchanged from the prior examination. Labs today, sodium 146, potassium 4.6, BUN 41, creatinine 1.87 it is almost as at the admission time. WBC today 4800 with 57% neutrophils. Hemoglobin 10.8, hematocrit 34.7. So the patient was admitted with the impression of kidney stones, urinary tract infection and culture was sent, and the culture of the urine has grown gram- negative rods more than 100,000 colonies. Today a consultation from urology, Dr. Echeverria, was obtained and he recommended treating the urinary tract infection at this time. PAST MEDICAL HISTORY: The patient has had stones inside the bladder, which have been removed by Dr. Echeverria in the past. The patient has had a calcified JJ stent which also has been removed. Also she has had stones in the ureter which also have been removed. The patient has had recurrent urinary tract infections and according to Dr. Echeverria this is due to the presence of infected stones in the kidneys. Also, as was mentioned, patient has had cystoscopy, cystolithotripsy, ureteroscopy and laser lithotripsy. Removal of a JJ stent. The patient has had an open cholecystectomy in the past. Also the patient has history of cerebrovascular accident, seizures, dementia, and anemia. SOCIAL HISTORY: The patient lives in a correction. PHYSICAL EXAMINATION: GENERAL: Today, patient is alert, awake, oriented, does not appear in acute distress. VITAL SIGNS: Temperature 97.9, pulse rate 92 regular, respirations 20, blood pressure 98/57, saturation 94% on room air. HEENT AND NECK: Within normal limits. The patient is edentulous, does not have any dentures. Carotids with no bruit. CHEST: Symmetrical expansion. HEART: Regular rhythm. LUNGS: Clear to auscultation. ABDOMEN: Not distended. Bowel sounds normal. There is a scar of previous cholecystectomy open in right subcostal. At the end at the medial side of the scar of the right subcostal, there is a healed depression scar which is the site of what has been in the past a G-tube that the patient had when she had a CVA, and now this is completely healed and there is no evidence of infection, cellulitis or leakage. In the left lower quadrant, there is fullness and I assume something appears like a mass, but this is most probably is the sigmoid colon packed with stool which shows on the CT scan. Right side of the abdomen is soft and no tenderness. The appendix area does not show any tenderness. LOWER EXTREMITIES: No pitting edema. VASCULAR: 2+ carotid, 3+ femoral, 2+ popliteal, 2+ anterior tibial, and posterior tibial is not palpable. IMPRESSION: Here is a 66-year-old female who has been admitted because of low back pain and vomiting for 3 days' duration and once in a while she has also complained of abdominal pain. She denied constipation and she probably has mentioned dysuria, which proved to be urinary tract infection. On the CT scan, there is evidence of levoscoliosis very extensive and some degenerative changes of the LS-spine as well. Residual kidney stone in renal pelvis. Although the radiologists have not mentioned whether they can see that the whole colon, right , left and transverse colon including sigmoid colon is fully packed with stool. Atherosclerosis of the aorta is present. As was mentioned, amylase and lipase are up. This could be due to renal failure or could be due to other pathologies. We are going to repeat the amylase and lipase considering the patient's vomiting story. RECOMMENDATIONS: 1. The patient needs to have the lumbar spine more precisely evaluated by MRI of the lumbar spine to see what is the cause of the pain, which is actually posterior and midline over the lumbar area. 2. The urology problem is being taken care of by Dr. Echeverria. Thank you, Dr. Echeverria. 3. I am going to give the patient some laxatives to make sure that we can clean and clear the impacted colons. Thank you very much. I will continue following the patient along with other colleagues. Dictated By: GALINA ALLEN/LUIS Conf#: [id number] DID#: [id number] MTDD
[2017-01-24] MEDS ORDERED: MINERAL OIL 133 ML ENEMA PR ONE (18:30)
[2017-01-24 19:30] VITALS: BP 142/81; RESP 18
--- NOTE | 2017-01-24 20:40 | RADRPT ---
PROCEDURE: MRCP. CLINICAL INDICATION: Biliary dilatation. TECHNIQUE: MRCP was performed on a high field MRI scanner. Patient was examined without contrast. 3-D coronal rotating MIP images of the biliary tree are available for review. COMPARISON: CT abdomen/pelvis 01/23/2017. CT abdomen/pelvis 12/30/2016. FINDINGS: The gallbladder is surgically absent. Common bile duct dilatation is present. There is also mild d ilatation of the cystic duct remnant. The distal common bile duct measures approximately 11-12 mm i n greatest diameter, which is unchanged from most recent CT abdomen/pelvis however increased when co mpared to CT from 12/10/2016 where the common bile duct measured approximately 6-7 mm in greatest di ameter. There are no discrete internal signal voids to suggest the presence of choledocholithiasis. The margins of the common bile duct at the level of the ampulla are smooth. Mild diffuse prominence of the pancreatic duct is observed. The liver and spleen are normal in size and homogeneous in signal intensity. The pancreas is normal in size and homogeneous in signal intensity. The adrenal glands are unremarkable. The kidneys are symmetric in size. There is no hydronephrosis or perinephric edema. The abdominal aorta is normal in caliber. There is no periaortic / retroperitoneal lymphadenopathy. The stomach is collapsed. There is a small tract extending from the outer wall of the distal portio n of the stomach through the subcutaneous soft tissues to the skin surface. This is unchanged over prior examinations. The visualized portions of the small and large intestines are unremarkable. Th ere is no ascites. IMPRESSION: Cholecystectomy with common bile duct dilatation, which has increased when correlated with CT abdome n/pelvis from 12/10/2016. No evidence of choledocholithiasis. No evidence of mass or lymphadenopathy of the abdomen. Small tract extending from the outer wall of the distal portion of the stomach through the abdominal wall to the skin surface. Imaging findings may reflect an old percutaneous gastrostomy tube tract. Correlate for presence of drainage from the skin. RPTAT: HLST .Addie Chilel MD, Date Time Electronically viewed and signed by .Addie Chilel MD, on 01/24/2017 20:40 .T/
[2017-01-24] MEDS ORDERED: LEVETIRACETAM 750 MG TAB PO SCH (21:00)
[2017-01-24] MEDS: ASCORBIC ACID 500 MG TAB PO SCH (21:34)
[2017-01-25] MEDS: PANTOPRAZOLE (EC) 40 MG TAB PO SCH (05:59)
[2017-01-25] MEDS: LEVOTHYROXINE 75 MCG TAB PO SCH (05:59)
[2017-01-25 06:12] LABS: AMYLASE 92 U/L (11-123)
[2017-01-25 06:39] LABS: ALBUMIN 3.4 g/dl (3.3-4.9)
[2017-01-25 06:41] LABS: BILIRUBIN,INDIRECT 0.1 mg/dl (0-1.1); BILIRUBIN,TOTAL 0.1 mg/dl (0.2-1.3); TOTAL PROTEIN 6.5 g/dl (6.1-8.1)
[2017-01-25] MEDS ORDERED: LEVOTHYROXINE 100 MCG TAB PO SCH (07:00)
[2017-01-25 07:31] VITALS: BP 95/54
[2017-01-25] MEDS: CHOLECALCIFEROL 1,000 UNIT TAB PO SCH (08:14)
[2017-01-25] MEDS: ASPIRIN 81 MG TAB PO SCH (08:14)
[2017-01-25] MEDS: ASCORBIC ACID 500 MG TAB PO SCH ×2 (08:14→21:00)
[2017-01-25] MEDS: DOCUSATE SODIUM 100 MG CAP PO SCH ×2 (08:15→21:00)
[2017-01-25] MEDS: MINERAL OIL 30ML CUP PO SCH ×3 (08:15→21:00)
[2017-01-25] MEDS: LEVETIRACETAM 750 MG TAB PO SCH ×2 (08:15→20:15)
[2017-01-25] MEDS: DONEPEZIL 10 MG TAB PO SCH (08:15)
[2017-01-25] MEDS ORDERED: ASPIRIN 81 MG TAB PO SCH (09:00)
[2017-01-25] MEDS: ENOXAPARIN 30 MG/0.3 ML SYG SC SCH (09:35)
[2017-01-25] MEDS: IMIPENEM-CILAST 500MG IV (PMX) 100 ML IVPB SCH ×2 (10:02→22:39)
[2017-01-25] MEDS: SOD CHLORIDE 0.45% 1,000 ML IV SCH (10:04)
--- NOTE | 2017-01-25 13:26 | PN ---
DATE: 01/25/2017 SUBJECTIVE: Still complaining of low back pain and left lower quadrant abdominal pain. No nausea, no vomiting. Has started to right now down to eat lunch. Sitting in the chair. OBJECTIVE: VITAL SIGNS: Temperature 98.5, 99 heart rate, 18 respiratory rate, 95/54 blood pressure, 93% on room air. LABORATORIES: Amylase is 92, lipase is 86, both are within normal range. Thyroid stimulating hormone is low. MRI of the abdomen was done late yesterday , and the report was reviewed. There is no common bile duct dilatation to 11 to 12 mm, but no evidence of choledocholithiasis. ABDOMEN: Soft. Left lower quadrant with some fullness and some tenderness. ASSESSMENT: A 66-year-old female who was admitted because of severe low back pain and some abdominal pain. CT scan and MRI had been done on admission. The amylase and lipase were elevated, but were normal today. The patient has some evidence of renal disease chronically. Kidney stones were present bilaterally. A CT scan shows extensive presence of stool material in the whole colon system. I have started patient on mineral oil and Fleets enema, but the patient has refused both of them. I talked to the patient today and convinced her to take mineral oil p.o. so that we can evacuate and clean the sigmoid colon and a left colon from stool, maybe that is going to relieve the abdominal pain. PLAN: In regard to the lower back pain. I discussed with Dr. Mcginnis. It is possible that is a new process, maybe some broken vertebrae or some bone pathology. We may get an MRI of the lumbar spine if it is okay with PCP. I will discuss with Dr. Mcginnis again. Dictated By: GALINA ALLEN/LUIS Conf#: [id number] DID#: [id number] MTDD
--- NOTE | 2017-01-25 15:15 | PN ---
Date/Time of Note Date/Time of Note DATE: 01/25/17 TIME: 15:07 Assessment/Plan VTE Prophylaxis VTE Prophylaxis Intervention: SCD's Lines/Catheters IV Catheter Type (from Nrs): Peripheral IV Assessment/Plan Chief Complaint/Hosp Course - E. coli ESBL UTI. Continue meropenem. - Nonobstructive multiple renal stones. Dr. Echeverria is following in urology consultation. - Abdominal pain, status post MRCP. Dr. Mao is following in gastroenterology consultation. - Right lateral chest pain. Will obtain rib series to rule out any rib fracture. - MARTHA on CKD. Continue to monitor BUN and creatinine. - Seizure disorder, continue Keppra. - Hypothyroidism, Synthroid adjusted to 225mcg. Continue Lovenox for deep venous thrombosis prophylaxis and Protonix for peptic ulcer disease prophylaxis. Further recommendations based on clinical course. Plan of care discussed with Dr. Mcginnis. Problems: Subjective 24 Hr Interval Summary Free Text/Dictation Patient is awake alert, tolerates diet well, denies any nausea vomiting, patient 's complains of right lateral trunk tenderness. Exam/Review of Systems Vital Signs Vitals Vital Signs Date Time Temp Pulse Resp B/P Pulse Ox O2 Delivery O2 Flow Rate FiO2 01/25/17 07:31 98.5 99 95/54 93 01/24/17 19:30 18 01/23/17 20:45 Room Air Intake and Output 01/24/17 01/24/17 01/25/17 15:00 23:00 07:00 Intake Total 1540 ml 120 ml Balance 1540 ml 120 ml Exam Constitutional: alert, oriented Psych: no complaints Head: atraumatic, normocephalic Eyes: nl conjunctiva ENMT: nl external ears & nose Neck: non-tender, supple Respiratory: clear to auscultation, normal air movement Cardiovascular: nl pulses, regular rate and rhythm Gastrointestinal: non-tender, other (Right upper quadrant pain), soft Musculoskeletal: nl extremities to inspection Extremities: normal pulses Neurological: TIE PULLER II-XII intact Skin: nl turgor Results Result Diagram: 01/24/1714 01/24/17513 Results 24 hrs Laboratory Tests Test 01/25/17 04:52 Alanine Aminotransferase (ALT/SGPT) 26 Albumin 3.4 Alkaline Phosphatase 124 H Amylase Level 92 Aspartate Amino Transf (AST/SGOT) 20 Direct Bilirubin 0.00 Indirect Bilirubin 0.1 Lipase 86 Thyroid Stimulating Hormone (TSH) 0.031 L Total Bilirubin 0.1 L Total Protein 6.5 # Medications Medications Current Medications Aspirin (Aspirin) 81 mg DAILY PO Last administered on 01/25/17 08:14; Admin Dose 81 MG; Start 01/24/17 at 09:00 Docusate Sodium (Colace) 100 mg BID PO Last administered on 01/25/17 08:15; Admin Dose 100 MG; Start 01/24/17 at 09:00 Magnesium Hydroxide (Milk Of Mag) 30 ml DAILY PRN PO CONSTIPATION; Start at 22:00 Bisacodyl (Dulcolax Supp) 10 mg DAILY PRN PA CONSTIPATION; Start 01/23/17 at 22 :00 Cholecalciferol (Vitamin D) 3,000 unit DAILY PO Last administered on 01/25/17 08:14; Admin Dose 3,000 UNIT; Start 01/24/17 at 09:00 Levothyroxine Sodium (Synthroid) 225 mcg DAILY@06 PO Last administered on 05:59; Admin Dose 225 MCG; Start 01/24/17 at 06:00 Levetiracetam (Keppra) 750 mg BID PO Last administered on 01/25/17 08:15; Admin Dose 750 MG; Start 01/24/17 at 09:00 Acetaminophen 650 mg 650 mg Q4H PRN PO PAIN AND OR ELEVATED TEMP; Start at 22:00 Sodium Chloride (1/2 NS) 1,000 ml @ 60 mls/hr [id number] IV Last administered on 01/25/17 10:04; Admin Dose 60 MLS/HR; Start 01/23/17 at 22:00 Enoxaparin Sodium (Lovenox) 30 mg DAILY SC Last administered on 01/25/17 09:35 ; Admin Dose 30 MG; Start 01/24/17 at 09:00 Morphine Sulfate (morphine) 2 mg Q3H PRN IV PAIN; Start 01/23/17 at 22:00 Ondansetron HCl (Zofran Inj) 4 mg Q6H PRN IV NAUSEA AND/OR VOMITING Last administered on 01/24/17 14:15; Admin Dose 4 MG; Start 01/23/17 at 22:00 Pantoprazole 40 mg 40 mg DAILY@06 PO Last administered on 01/25/17 05:59; Admin Dose 40 MG; Start 01/24/17 at 06:00 Imipenem/ Cilastatin Sodium (Primaxin 500 Mg/ 100 ml (Pmx)) 100 ml @ 100 mls/ hr Q12H IVPB Last administered on 01/25/17 10:02; Admin Dose 100 MLS/HR; Start 01/23/17 at 22:30 Acetaminophen (Tylenol Tab) 650 mg Q4H PRN PO FOR MILD PAIN -03/11 Last administered on 01/25/17 05:59; Admin Dose 650 MG; Start 01/24/17 at 10:30 Ascorbic Acid (Vitamin C) 500 mg BID PO Last administered on 01/25/17 08:14; Admin Dose 500 MG; Start 01/24/17 at 21:00 Docusate Sodium (Colace) 100 mg BID PRN PO CONSTIPATION; Start 01/24/17 at 10: 30 Donepezil HCl (Aricept) 10 mg DAILY PO Last administered on 01/25/17 08:15; Admin Dose 10 MG; Start 01/24/17 at 10:30 Mineral Oil (Mineral Oil) 30 ml TID PO Last administered on 01/25/17 14:32; Admin Dose 30 ML; Start 01/25/17 at 09:00 NEFTALI KEN Jan 25, 2017 15:15
--- NOTE | 2017-01-25 17:22 | RADRPT ---
PROCEDURE: XR Chest. CLINICAL INDICATION: Right chest pain TECHNIQUE: A single portable view of the chest was obtained. COMPARISON: 05/06/2016 FINDINGS: The aorta is tortuous and atherosclerotic. The cardiomediastinal silhouette is otherwise within nor mal limits. Patchy air space disease in the left lower lung zone is seen. The lungs and pleural spac es are remaining clear. The soft tissues and osseous structures are unchanged with a dextroscoliosi s again seen. IMPRESSION: Patchy air space disease in the left lower lung zone. RPTAT: HPNM Physician Geronimo Date Time Electronically viewed and signed by Physician Geronimo on 01/25/2017 17:22 /
--- NOTE | 2017-01-25 19:00 | PN ---
DATE: 01/25/2017 SUBJECTIVE: Right flank pain and abdominal pain. The patient does have urinary tract infection wit h Escherichia coli extended-spectrum beta-lactamase that is recurrent. Also on the CAT scan, she do es have a stone in the bottom of the right kidney and another stone in the bottom of the left kidney and she has had a history of these stones before and these probably are the reason for her recurren t urinary tract infections. OBJECTIVE: VITAL SIGNS: Temperature today is 98.5, pulse is 99, respiration is 18, blood pressure 95/54. ABDOMEN: Soft. LABORATORY DATA: Her CBC yesterday showed a white count of 4.8, hemoglobin 10.8, hematocrit 34.7. BUN is 41, creatinine 1.87. Urine culture as mentioned is ESBL E. coli. She has had rib x-rays and there is no rib fracture. IMPRESSION: Bilateral renal stones in the lower pole calyces and recurrent extended spectrum beta-l actamase urinary tract infection. PLAN: To continue treating her ESBL infection. I discussed with her and also with Dr. Mcginnis at some time in the future we will have to do ureteroscopy and laser lithotripsy to remove the stone fr om the lower pole calyx, do one side and then at a later date do another side. Dictated By: JENY WHITNEY MD BB/NTS Conf#: [id number] DID#: [id number] CC: HEIKE MCGINNIS MD;*EndCC*
[2017-01-25 20:06] VITALS: BP 103/51; RESP 18
[2017-01-26] MEDS: SOD CHLORIDE 0.45% 1,000 ML IV SCH ×2 (04:10→19:43)
[2017-01-26] MEDS: LEVOTHYROXINE 75 MCG TAB PO SCH (05:22)
[2017-01-26] MEDS: PANTOPRAZOLE (EC) 40 MG TAB PO SCH (05:22)
[2017-01-26 05:55] LABS: ADD SCAN DIFF NO
[2017-01-26 06:15] LABS: BASOPHILS % 0.5 % (0.0-2.0); EOSINOPHILS # 0.4 10^3/ul (0.0-0.5); EOSINOPHILS % 7.7 % (0.0-7.0); HEMATOCRIT 32.6 % (37.0-47.0); HEMOGLOBIN 10.1 g/dl (12.0-16.0); LYMPHOCYTES # 1.4 10^3/ul (0.8-2.9); LYMPHOCYTES % 25.7 % (15.0-51.0); MEAN CORPUSCULAR HEMOGLOBIN 29.1 pg (29.0-33.0); MEAN CORPUSCULAR VOLUME 93.9 fl (82.0-101.0); MEAN PLATELET VOLUME 10.3 fl (7.4-10.4); MONOCYTE # 0.7 10^3/ul (0.3-0.9); MONOCYTES % 12.1 % (0.0-11.0); NEUTROPHILS % 53.6 % (39.0-77.0); PLATELET COUNT 226 10^3/UL (140-415); RED BLOOD COUNT 3.47 10^6/ul (4.20-5.40); RED CELL DISTRIBUTION WIDTH 12.9 % (11.5-14.5); WHITE BLOOD COUNT 5.6 10^3/ul (4.8-10.8)
[2017-01-26 06:28] LABS: POTASSIUM 4.1 mmol/L (3.5-5.1)
[2017-01-26 06:31] LABS: CREATININE 1.93 mg/dl (0.44-1.00)
[2017-01-26 06:32] LABS: CALCIUM 8.9 mg/dl (8.4-10.2)
[2017-01-26 07:56] VITALS: BP 90/56; RESP 18
--- NOTE | 2017-01-26 08:19 | RADRPT ---
PROCEDURE: MR Lumbar Spine. CLINICAL INDICATION: Low back pain TECHNIQUE: An MRI of the lumbar spine was performed utilizing the following sequences: Sagittal T 1 weighted, sagittal and axial T2 weighted, axial proton density and sagittal T2 with fat saturation . Images were reviewed on a high-resolution PACS workstation. COMPARISON: None. FINDINGS: There is normal lordosis of the lumbar spine. A levoscoliosis is seen. No vertebral body subluxati on is seen. The vertebral bodies are normal in height. The marrow signal intensity is heterogeneou s. Modic type 2 endplate changes are seen at L3-4. The conus medullaris is visible at the L1 leve l and appears grossly normal. L1-L2: Disk dessication is seen with minimal disk height loss. A very mild posterior disk bulge is seen. No significant central canal or foraminal stenosis is seen. L2-L3: Disk dessication is seen with mild disk height loss. A focal area of hyperintense T2 signal in the posterior annulus is seen consistent with a annular fissure. A posterior disk bulge is seen . Mild bilateral facet arthropathy is seen with ligamentum flavum thickening. No significant centr al canal stenosis is seen. Moderate right foraminal stenosis and mild left foraminal stenosis is se en. L3-L4: Disk dessication is seen with moderate disk height loss with irregularity of the endplates. Posterior disk bulge is seen. Mild to moderate bilateral facet arthropathy is seen with ligamentum flavum thickening. No significant central canal stenosis is seen. Moderate right foraminal stenos is and mild left foraminal stenosis is seen. L4-L5: Disk dessication is seen with moderate disk height loss. Posterior disk bulge is seen. Sev ere bilateral facet arthropathy is seen with ligamentum flavum thickening. Mild central canal steno sis is seen with narrowing of the lateral recesses. Severe right foraminal stenosis is seen with a disk bulge contacting the exiting right L4 nerve root. Mild left foraminal stenosis is seen. L5-S1: Minimal disk dessication is seen with mild posterior disk height loss. Mild right foraminal stenosis and moderate left foraminal stenosis is seen. The disk bulge contacts the exiting left L5 nerve root. Fatty atrophy of the paravertebral soft tissues is seen. The kidneys are small in size. Fatty atro phy of the right psoas muscle is also noted. IMPRESSION: 1. Multilevel degenerative spondylosis of the lumbar spine as described above. 2. Severe facet arthropathy at L4-5 which in combination with ligamentum flavum thickening and disc ogenic disease is causing mild central canal stenosis and narrowing of the lateral recesses. 3. Annular fissure in the posterior annulus at L2-3. 4. Contacting of the exiting left L4 and L5 nerve root secondary to the disk bulges. Correlation f or radiculopathy may be of value. In addition, severe right foraminal stenosis at L4-5. 5. Levoscoliosis. RPTAT: HPNM Physician Geronimo Date Time Electronically viewed and signed by Physician Geronimo on 01/26/2017 08:19 /
[2017-01-26] MEDS: ASPIRIN 81 MG TAB PO SCH (08:30)
[2017-01-26] MEDS: DOCUSATE SODIUM 100 MG CAP PO SCH ×2 (08:31→21:14)
[2017-01-26] MEDS: LEVETIRACETAM 750 MG TAB PO SCH ×2 (08:31→21:14)
[2017-01-26] MEDS: ASCORBIC ACID 500 MG TAB PO SCH ×2 (08:31→21:13)
[2017-01-26] MEDS: DONEPEZIL 10 MG TAB PO SCH (08:31)
[2017-01-26] MEDS: CHOLECALCIFEROL 1,000 UNIT TAB PO SCH (08:31)
[2017-01-26] MEDS: MINERAL OIL 30ML CUP PO SCH ×3 (08:32→21:00)
[2017-01-26] MEDS: ENOXAPARIN 30 MG/0.3 ML SYG SC SCH (09:20)
[2017-01-26] MEDS: IMIPENEM-CILAST 500MG IV (PMX) 100 ML IVPB SCH ×2 (10:55→22:18)
--- NOTE | 2017-01-26 11:01 | PN ---
DATE: 01/26/2017 SUBJECTIVE: Bilateral renal stones and urinary tract infection with E. coli ESBL. At present, the p mary is feeling much better and she is in fact sitting on the chair and out of her bed and she is much better than she used to be. She is denying any abdominal pain and at the present there is no d ysuria. The injected findings. OBJECTIVE FINDINGS: VITAL SIGNS: Temperature is 97.5, pulse 75, respirations 18, blood pressure 90/56. ABDOMEN: Soft. LABORATORY DATA: Her CBC shows a white count of 5.6, hemoglobin 10.1, hematocrit 32.6. BUN 35, cre atinine 1.93, and these numbers are stable for her own history of BUN and creatinine. The urine cul ture is showing beta-lactamase Escherichia coli and the patient is on imipenem for it, and she is re sponding well. I have discussed with her about the kidney stones and that they me be the reason for her recurrent i nfection, and also discussed with Dr. Mcginnis, that in the future we will have to go in and do a ur eteroscopy and pyeloscopy and removal one stone and then do the same on the other stone at a later d ate. Dictated By: JENY METZGER/LUIS Conf#: [id number] DID#: [id number]
--- NOTE | 2017-01-26 12:10 | PN ---
Date/Time of Note Date/Time of Note DATE: 01/26/17 TIME: 11:49 Assessment/Plan VTE Prophylaxis VTE Prophylaxis Intervention: LMWH Lines/Catheters IV Catheter Type (from Nrsg): Peripheral IV Assessment/Plan Assessment/Plan - E. coli ESBL UTI. Continue meropenem. - Nonobstructive multiple renal stones. Dr. Echeverria is following in urology consultation. - Abdominal pain, status post MRCP. - per general surgery - Dr. Contreras is following in gastroenterology consultation. - Right lateral chest pain. Will obtain rib series to rule out any rib fracture. - MARTHA on CKD. Continue to monitor BUN and creatinine. - Seizure disorder, continue Keppra. - seizure precautions - Hypothyroidism, Synthroid adjusted to 225mcg. Continue Lovenox for deep venous thrombosis prophylaxis and Protonix for peptic ulcer disease prophylaxis. Further recommendations based on clinical course. Plan of care discussed with Dr. Mcginnis. Subjective 24 Hr Interval Summary Free Text/Dictation up in chair, afebrile, no seizures reported, c/o back pain . dw staff. Constitutional: no complaints Eyes: no complaints ENT: no complaints Cardiovascular: no complaints Gastrointestinal: no complaints Genitourinary: no complaints Musculoskeletal: back pain Exam/Review of Systems Vital Signs Vitals Vital Signs Date Time Temp Pulse Resp B/P Pulse Ox O2 Delivery O2 Flow Rate FiO2 01/26/17 07:56 97.5 75 18 90/56 94 01/23/17 20:45 Room Air Intake and Output 01/25/17 01/25/17 01/26/17 15:00 23:00 07:00 Intake Total 1320 ml 640 ml Balance 1320 ml 640 ml Exam Constitutional: alert, well developed Psych: nl mood/affect Head: normocephalic ENMT: nl external ears & nose Neck: non-tender Respiratory: clear to auscultation Cardiovascular: regular rate and rhythm Gastrointestinal: non-tender, soft Musculoskeletal: nl extremities to inspection, other Extremities: normal pulses Neurological: nl speech Results Result Diagram: 01/26/17 0513 01/26/17 0513 Results 24 hrs Laboratory Tests Test 01/26/17 05:13 Anion Gap 15 Basophils # 0.0 Basophils % 0.5 Blood Urea Nitrogen 35 H Calcium Level 8.9 Carbon Dioxide Level 21 Chloride Level 111 H Creatinine 1.93 H Eosinophils # 0.4 Eosinophils % 7.7 H Glucose Level 95 Hematocrit 32.6 L Hemoglobin 10.1 L Lymphocytes # 1.4 Lymphocytes % 25.7 Mean Corpuscular Hemoglobin 29.1 Mean Corpuscular Hemoglobin Concent 31.0 L Mean Corpuscular Volume 93.9 Mean Platelet Volume 10.3 Monocytes # 0.7 Monocytes % 12.1 H Neutrophils # 3.0 Neutrophils % 53.6 Nucleated Red Blood Cells # 0.0 Nucleated Red Blood Cells % 0.0 Platelet Count 226 Potassium Level 4.1 Red Blood Count 3.47 L Red Cell Distribution Width 12.9 Sodium Level 143 White Blood Count 5.6 Medications Medications Current Medications Aspirin (Aspirin) 81 mg DAILY PO Last administered on 01/25/17 08:14; Admin Dose 81 MG; Start 01/24/17 at 09:00 Docusate Sodium (Colace) 100 mg BID PO Last administered on 01/26/17 08:31; Admin Dose 100 MG; Start 01/24/17 at 09:00 Magnesium Hydroxide (Milk Of Mag) 30 ml DAILY PRN PO CONSTIPATION; Start at 22:00 Bisacodyl (Dulcolax Supp) 10 mg DAILY PRN [place] CONSTIPATION; Start 01/23/17 at 22 :00 Cholecalciferol (Vitamin D) 3,000 unit DAILY PO Last administered on 01/26/17 08:31; Admin Dose 3,000 UNIT; Start 01/24/17 at 09:00 Levothyroxine Sodium (Synthroid) 225 mcg DAILY@06 PO Last administered on 05:22; Admin Dose 225 MCG; Start 01/24/17 at 06:00 Levetiracetam (Keppra) 750 mg BID PO Last administered on 01/26/17 08:31; Admin Dose 750 MG; Start 01/24/17 at 09:00 Acetaminophen 650 mg 650 mg Q4H PRN PO PAIN AND OR ELEVATED TEMP; Start at 22:00 Sodium Chloride (1/2 NS) 1,000 ml @ 60 mls/hr [id number] IV Last administered on 01/26/17 04:10; Admin Dose 60 MLS/HR; Start 01/23/17 at 22:00 Enoxaparin Sodium (Lovenox) 30 mg DAILY SC Last administered on 01/26/17 09:20 ; Admin Dose 30 MG; Start 01/24/17 at 09:00 Morphine Sulfate (morphine) 2 mg Q3H PRN IV PAIN; Start 01/23/17 at 22:00 Ondansetron HCl (Zofran Inj) 4 mg Q6H PRN IV NAUSEA AND/OR VOMITING Last administered on 01/24/17 14:15; Admin Dose 4 MG; Start 01/23/17 at 22:00 Pantoprazole 40 mg 40 mg DAILY@06 PO Last administered on 01/26/17 05:22; Admin Dose 40 MG; Start 01/24/17 at 06:00 Imipenem/ Cilastatin Sodium (Primaxin 500 Mg/ 100 ml (Pmx)) 100 ml @ 100 mls/ hr Q12H IVPB Last administered on 01/26/17 10:55; Admin Dose 100 MLS/HR; Start 01/23/17 at 22:30 Acetaminophen (Tylenol Tab) 650 mg Q4H PRN PO FOR MILD PAIN -03/11 Last administered on 01/25/17 05:59; Admin Dose 650 MG; Start 01/24/17 at 10:30 Ascorbic Acid (Vitamin C) 500 mg BID PO Last administered on 01/26/17 08:31; Admin Dose 500 MG; Start 01/24/17 at 21:00 Docusate Sodium (Colace) 100 mg BID PRN PO CONSTIPATION; Start 01/24/17 at 10: 30 Donepezil HCl (Aricept) 10 mg DAILY PO Last administered on 01/26/17 08:31; Admin Dose 10 MG; Start 01/24/17 at 10:30 Mineral Oil (Mineral Oil) 30 ml TID PO Last administered on 01/25/17 14:32; Admin Dose 30 ML; Start 01/25/17 at 09:00 ROSHAN NEELY Jan 26, 2017 12:00
--- NOTE | 2017-01-26 14:09 | PN ---
DATE: 01/26/2017 SUBJECTIVE: The patient states that she feels much better. The abdominal pain is almost gone. The low back pain is better and dysuria is better. She had a bowel movement last night that she thinks was a large bowel movement. She accepted to take mineral oil yesterday, but today again she is refusing. PHYSICAL EXAMINATION: OBJECTIVE: Temperature 97.5, pulse 75, respiratory rate 18, blood pressure 90/ 56, saturation 94% room air. GENERAL: The patient is lying on the bed. Does not appear to be in any acute distress. ABDOMEN: Softer, minimal tenderness left lower quadrant. EXTREMITIES: Legs are okay. DIAGNOSTIC DATA: She had rib views which do not show any fracture. She had an MRI of the lumbar spine which shows a lot of pathology, , that should be addressed by the primary care physician and probably getting a consultation from orthopedic surgeon if indicated. ASSESSMENT: A 66-year-old [place], who presented with severe low back pain and also abdominal pain and some dysuria, was found to have a urinary tract infection with Escherichia coli extended-spectrum beta- lactamase, has been started on antibiotic for that matter. She was constipated. Constipation almost has been resolved to some extent. Abdominal pain is much, much better and the low back pain is also better. PLAN: Per urology continue antibiotic and discharge planning per primary care physician. Dictated By: GALINA ALLEN/LUIS Conf#: [id number] DID#: [id number] MTDD
[2017-01-26 20:00] VITALS: BP 112/64; PULSE 88; RESP 18
[2017-01-27] MEDS: SOD CHLORIDE 0.45% 1,000 ML IV SCH ×3 (00:31→20:55)
[2017-01-27] MEDS: PANTOPRAZOLE (EC) 40 MG TAB PO SCH (05:45)
[2017-01-27] MEDS: LEVOTHYROXINE 75 MCG TAB PO SCH (05:46)
[2017-01-27 06:13] LABS: ADD SCAN DIFF NO
[2017-01-27 06:20] LABS: POTASSIUM 4.2 mmol/L (3.5-5.1)
[2017-01-27 06:22] LABS: BASOPHILS % 0.6 % (0.0-2.0); CREATININE 1.75 mg/dl (0.44-1.00); EOSINOPHILS # 0.4 10^3/ul (0.0-0.5); EOSINOPHILS % 7.2 % (0.0-7.0); HEMATOCRIT 33.8 % (37.0-47.0); HEMOGLOBIN 10.4 g/dl (12.0-16.0); LYMPHOCYTES # 1.6 10^3/ul (0.8-2.9); MEAN CORPUSCULAR HEMOGLOBIN 28.7 pg (29.0-33.0); MEAN CORPUSCULAR HGB CONC 30.8 g/dl (32.0-37.0); MEAN CORPUSCULAR VOLUME 93.4 fl (82.0-101.0); MEAN PLATELET VOLUME 10.1 fl (7.4-10.4); MONOCYTE # 0.6 10^3/ul (0.3-0.9); MONOCYTES % 11.4 % (0.0-11.0); NEUTROPHIL # 2.8 10^3/ul (1.6-7.5); NEUTROPHILS % 51.6 % (39.0-77.0); PLATELET COUNT 237 10^3/UL (140-415); RED BLOOD COUNT 3.62 10^6/ul (4.20-5.40); RED CELL DISTRIBUTION WIDTH 12.7 % (11.5-14.5); WHITE BLOOD COUNT 5.5 10^3/ul (4.8-10.8)
[2017-01-27 06:24] LABS: CALCIUM 8.9 mg/dl (8.4-10.2)
[2017-01-27 07:26] VITALS: BP 109/52; RESP 18
[2017-01-27] MEDS: ENOXAPARIN 30 MG/0.3 ML SYG SC SCH (09:00)
[2017-01-27] MEDS: MINERAL OIL 30ML CUP PO SCH ×3 (09:00→20:55)
[2017-01-27] MEDS: DOCUSATE SODIUM 100 MG CAP PO SCH ×2 (09:10→20:54)
[2017-01-27] MEDS: DONEPEZIL 10 MG TAB PO SCH (09:10)
[2017-01-27] MEDS: LEVETIRACETAM 750 MG TAB PO SCH ×2 (09:10→20:55)
[2017-01-27] MEDS: CHOLECALCIFEROL 1,000 UNIT TAB PO SCH (09:10)
[2017-01-27] MEDS: ASCORBIC ACID 500 MG TAB PO SCH ×2 (09:10→20:54)
[2017-01-27] MEDS: ASPIRIN 81 MG TAB PO SCH (09:10)
--- NOTE | 2017-01-27 10:48 | PN ---
Date/Time of Note Date/Time of Note DATE: 01/27/17 TIME: 10:38 Assessment/Plan VTE Prophylaxis VTE Prophylaxis Intervention: LMWH Lines/Catheters IV Catheter Type (from Nrsg): Peripheral IV Assessment/Plan Assessment/Plan - E. coli ESBL UTI. Continue meropenem. - Nonobstructive multiple renal stones. Dr. Echeverria is following in urology consultation. - Abdominal pain, status post MRCP. - per general surgery - Dr. Contreras is following in gastroenterology consultation. - Right lateral chest pain. Will obtain rib series to rule out any rib fracture. - MARTHA on CKD. Continue to monitor BUN and creatinine. - Seizure disorder, continue Keppra. - seizure precautions - Hypothyroidism, Synthroid adjusted to 225mcg. Continue Lovenox for deep venous thrombosis prophylaxis and Protonix for peptic ulcer disease prophylaxis. Further recommendations based on clinical course. Plan of care discussed with Dr. Mcginnis. Subjective 24 Hr Interval Summary Free Text/Dictation up in chair, seems comfortable, denies any pain, wants to go back to , staff- no new issues reported. Eyes: no complaints ENT: no complaints Respiratory: no complaints Cardiovascular: no complaints Gastrointestinal: no complaints Genitourinary: no complaints Musculoskeletal: no complaints Skin: no complaints Neurologic: no complaints Endocrine: no complaints Lymphatic: no complaints Psychological: nl mood/affect Immunologic: no complaints Exam/Review of Systems Vital Signs Vitals Vital Signs Date Time Temp Pulse Resp B/P Pulse Ox O2 Delivery O2 Flow Rate FiO2 01/27/17 07:26 98.1 71 18 109/52 96 01/26/17 20:00 Room Air Intake and Output 01/26/17 01/26/17 01/27/17 15:00 23:00 07:00 Intake Total 1240 ml 680 ml Balance 1240 ml 680 ml Exam Constitutional: alert, oriented, well developed Psych: nl mood/affect Head: atraumatic Eyes: EOMI, nl sclera ENMT: nl external ears & nose Neck: non-tender Respiratory: clear to auscultation Cardiovascular: nl pulses Gastrointestinal: non-tender, soft Musculoskeletal: nl extremities to inspection Neurological: nl mental status, nl speech Skin: nl turgor Lymph: nontender Results Result Diagram: 01/27/1752101/27/17521 Results 24 hrs Laboratory Tests Test 01/27/17 05:22 Anion Gap 16 Basophils # 0.0 Basophils % 0.6 Blood Urea Nitrogen 28 H Calcium Level 8.9 Carbon Dioxide Level 21 Chloride Level 111 H Creatinine 1.75 H Eosinophils # 0.4 Eosinophils % 7.2 H Glucose Level 90 Hematocrit 33.8 L Hemoglobin 10.4 L Lymphocytes # 1.6 Lymphocytes % 29.0 Mean Corpuscular Hemoglobin 28.7 L Mean Corpuscular Hemoglobin Concent 30.8 L Mean Corpuscular Volume 93.4 Mean Platelet Volume 10.1 Monocytes # 0.6 Monocytes % 11.4 H Neutrophils # 2.8 Neutrophils % 51.6 Nucleated Red Blood Cells # 0.0 Nucleated Red Blood Cells % 0.0 Platelet Count 237 Potassium Level 4.2 Red Blood Count 3.62 L Red Cell Distribution Width 12.7 Sodium Level 144 White Blood Count 5.5 Medications Medications Current Medications Aspirin (Aspirin) 81 mg DAILY PO Last administered on 01/27/17 09:10; Admin Dose 81 MG; Start 01/24/17 at 09:00 Docusate Sodium (Colace) 100 mg BID PO Last administered on 01/27/17 09:10; Admin Dose 100 MG; Start 01/24/17 at 09:00 Magnesium Hydroxide (Milk Of Mag) 30 ml DAILY PRN PO CONSTIPATION; Start at 22:00 Bisacodyl (Dulcolax Supp) 10 mg DAILY PRN [place] CONSTIPATION; Start 01/23/17 at 22 :00 Cholecalciferol (Vitamin D) 3,000 unit DAILY PO Last administered on 01/27/17 09:10; Admin Dose 3,000 UNIT; Start 01/24/17 at 09:00 Levothyroxine Sodium (Synthroid) 225 mcg DAILY@06 PO Last administered on 05:46; Admin Dose 225 MCG; Start 01/24/17 at 06:00 Levetiracetam (Keppra) 750 mg BID PO Last administered on 01/27/17 09:10; Admin Dose 750 MG; Start 01/24/17 at 09:00 Acetaminophen 650 mg 650 mg Q4H PRN PO PAIN AND OR ELEVATED TEMP; Start at 22:00 Sodium Chloride (1/2 NS) 1,000 ml @ 60 mls/hr [id number] IV Last administered on 01/27/17 00:31; Admin Dose 60 MLS/HR; Start 01/23/17 at 22:00 Enoxaparin Sodium (Lovenox) 30 mg DAILY SC Last administered on 01/26/17 09:20 ; Admin Dose 30 MG; Start 01/24/17 at 09:00 Morphine Sulfate (morphine) 2 mg Q3H PRN IV PAIN; Start 01/23/17 at 22:00 Ondansetron HCl (Zofran Inj) 4 mg Q6H PRN IV NAUSEA AND/OR VOMITING Last administered on 01/24/17 14:15; Admin Dose 4 MG; Start 01/23/17 at 22:00 Pantoprazole 40 mg 40 mg DAILY@06 PO Last administered on 01/27/17 05:45; Admin Dose 40 MG; Start 01/24/17 at 06:00 Imipenem/ Cilastatin Sodium (Primaxin 500 Mg/ 100 ml (Pmx)) 100 ml @ 100 mls/ hr Q12H IVPB Last administered on 01/26/17 22:18; Admin Dose 100 MLS/HR; Start 01/23/17 at 22:30 Acetaminophen (Tylenol Tab) 650 mg Q4H PRN PO FOR MILD PAIN -03/11 Last administered on 01/25/17 05:59; Admin Dose 650 MG; Start 01/24/17 at 10:30 Ascorbic Acid (Vitamin C) 500 mg BID PO Last administered on 01/27/17 09:10; Admin Dose 500 MG; Start 01/24/17 at 21:00 Docusate Sodium (Colace) 100 mg BID PRN PO CONSTIPATION; Start 01/24/17 at 10: 30 Donepezil HCl (Aricept) 10 mg DAILY PO Last administered on 01/27/17 09:10; Admin Dose 10 MG; Start 01/24/17 at 10:30 Mineral Oil (Mineral Oil) 30 ml TID PO Last administered on 01/25/17 14:32; Admin Dose 30 ML; Start 01/25/17 at 09:00 ROSHAN NEELY Jan 27, 2017 10:48
[2017-01-27] MEDS: IMIPENEM-CILAST 500MG IV (PMX) 100 ML IVPB SCH ×2 (11:06→22:17)
--- NOTE | 2017-01-27 15:30 | PN ---
DATE: 01/27/2017 SUBJECTIVE: Bilateral renal stones and urinary tract infection with E. coli ESBL. The patient is f eeling uncomfortable, and she is just complaining about her diaper not being changed, and the dressi ng over her arm where she has a cut is not changed, so I told her the nurse will come in and change it for her. Otherwise, she has no abdominal pain, and she is voiding well. OBJECTIVE: VITAL SIGNS: Her temperature is 98.1, pulse 71, respiration 18, blood pressure 109/52. ABDOMEN: Soft. There is no abdominal mass palpable. LABORATORY DATA: The CBC shows a white count of 5.5, hemoglobin 10.4, hematocrit 33.8. BUN is 28, creatinine 1.75. The blood cultures have been negative. IMPRESSION: Urinary tract infection with ESBL. The patient does have bilateral renal stones, so th at may be the reason for her infection. PLAN: To continue her intravenous antibiotic with the Primaxin. Dictated By: JENY METZGER/LUIS Conf#: [id number] DID#: [id number]
[2017-01-27 19:40] VITALS: BP 103/69; RESP 18
[2017-01-28] MEDS: SOD CHLORIDE 0.45% 1,000 ML IV SCH ×2 (02:00→18:08)
[2017-01-28] MEDS: LEVOTHYROXINE 75 MCG TAB PO SCH (05:13)
[2017-01-28] MEDS: PANTOPRAZOLE (EC) 40 MG TAB PO SCH (05:13)
[2017-01-28 05:55] LABS: ADD SCAN DIFF NO
[2017-01-28 05:58] LABS: BASOPHILS % 0.7 % (0.0-2.0); EOSINOPHILS # 0.4 10^3/ul (0.0-0.5); EOSINOPHILS % 7.1 % (0.0-7.0); HEMATOCRIT 32.8 % (37.0-47.0); HEMOGLOBIN 10.3 g/dl (12.0-16.0); LYMPHOCYTES # 1.8 10^3/ul (0.8-2.9); LYMPHOCYTES % 30.3 % (15.0-51.0); MEAN CORPUSCULAR HEMOGLOBIN 29.1 pg (29.0-33.0); MEAN CORPUSCULAR HGB CONC 31.4 g/dl (32.0-37.0); MEAN CORPUSCULAR VOLUME 92.7 fl (82.0-101.0); MEAN PLATELET VOLUME 10.2 fl (7.4-10.4); MONOCYTE # 0.7 10^3/ul (0.3-0.9); MONOCYTES % 11.4 % (0.0-11.0); NEUTROPHILS % 50.3 % (39.0-77.0); PLATELET COUNT 256 10^3/UL (140-415); RED BLOOD COUNT 3.54 10^6/ul (4.20-5.40); RED CELL DISTRIBUTION WIDTH 12.7 % (11.5-14.5); WHITE BLOOD COUNT 5.9 10^3/ul (4.8-10.8)
[2017-01-28 06:30] LABS: POTASSIUM 4.2 mmol/L (3.5-5.1)
[2017-01-28 06:33] LABS: CREATININE 1.69 mg/dl (0.44-1.00)
[2017-01-28 06:34] LABS: CALCIUM 9.1 mg/dl (8.4-10.2)
--- NOTE | 2017-01-28 07:18 | PN ---
DATE: SUBJECTIVE: No new complaints. States that has had a small amount of bowel movement every morning. No nausea, no vomiting. Is about to have dinner. OBJECTIVE: VITAL SIGNS: 98.1, 71, 18, 109/52, 96% saturation on room air. WBC is 5500, hemoglobin 10.4, hematocrit 33.8. BMP: Sodium, potassium normal. BUN is 28, slightly less than yesterday. Creatinine has decreased a little bit, 1.75 ABDOMEN: Soft, mild tenderness in left lower quadrant. EXTREMITIES: Note, patient has a dressing around her left hand, and she stated that she had a fallen. She had some laceration, bleeding from there, and somebody has dressing over it. So, I tried to remove the dressing. There was adherence of the 4 x 4 to the underlying pathology. After soaking it with normal saline, eventually that was removed. It was noticed that there is an area of avulsion of the skin, and the avulsed skin has rolled over. The bare area is about 1 x 1 cm, and the rolled skin is shrunken and dry and . So, I removed the avulsed, skin. I used sterile sharp scissors. Then, dressing was changed. There was no antibiotic ointment available on the floor, so put some iodinated nonadhesive dressing, and then covered by 4 x 4 and wrapped with kerlex. We are going to change the dressing daily. Lower extremity: No pitting edema. Patient is sitting out of bed in the chair. ASSESSMENT: A 66-year-old female who presented with low back pain and abdominal pain, and was found to have urinary tract infection, and also was found to have some pathology in the lumbar spine. No fracture. Also, chronic constipation is packed in the colon, left and right. I tried to clean the patient colon by laxatives,but she refused. She is moving bowel movement small amount every day, and she is happy with that. She does not want anything else. Also, patient has laceration/avulsion of the left interdigit between first and second fingers, left hand. The dressing should be changed daily by application of antibiotic ointment. PLAN: As above. Also, the patient is getting antibiotic for urinary tract infection. Dictated By: GALINA ALLEN/LUIS Conf#: [id number] DID#: [id number] MTDD
[2017-01-28 07:42] VITALS: BP 114/55; RESP 16
[2017-01-28] MEDS: CHOLECALCIFEROL 1,000 UNIT TAB PO SCH (08:23)
[2017-01-28] MEDS: ASCORBIC ACID 500 MG TAB PO SCH ×2 (08:23→21:47)
[2017-01-28] MEDS: LEVETIRACETAM 750 MG TAB PO SCH ×2 (08:23→21:47)
[2017-01-28] MEDS: MINERAL OIL 30ML CUP PO SCH ×3 (08:23→22:00)
[2017-01-28] MEDS: DOCUSATE SODIUM 100 MG CAP PO SCH ×2 (08:23→22:00)
[2017-01-28] MEDS: ASPIRIN 81 MG TAB PO SCH (08:23)
[2017-01-28] MEDS: DONEPEZIL 10 MG TAB PO SCH (08:24)
[2017-01-28] MEDS: ENOXAPARIN 30 MG/0.3 ML SYG SC SCH (08:25)
[2017-01-28] MEDS: IMIPENEM-CILAST 500MG IV (PMX) 100 ML IVPB SCH ×2 (08:31→21:47)
--- NOTE | 2017-01-28 08:42 | PN ---
DATE: 01/28/2017 SUBJECTIVE: Urinary tract infection and bilateral renal stones the urinary tract infection is E. co li ESBL. The patient herself feels fine and she is comfortable. She denies having any pain today. OBJECTIVE VITAL SIGNS: Her temperature is 98.1, pulse is 76, blood pressure 114/55, respirations 16. ABDOMEN: Soft. There is no tenderness. LABORATORY DATA: Her CBC shows a white count of 5.9, hemoglobin is 10.3, hematocrit 32.8. BUN is 2 7, creatinine 1.69. Electrolytes: Sodium 144, potassium 4.2, chloride 112, CO2 21. Urine culture again is E. coli ESBL. The patient is on Primaxin. PLAN: To continue the same treatment. As far as for the kidney stones, we discussed it with her soila Mcginnis and we will probably do a ureteroscopy, laser lithotripsy later on a different admiss ion. Dictated By: JENY METZGER/LUIS Conf#: [id number] DID#: [id number]
--- NOTE | 2017-01-28 18:47 | PN ---
Date/Time of Note Date/Time of Note DATE: 01/28/17 TIME: 18:43 Assessment/Plan VTE Prophylaxis VTE Prophylaxis Intervention: SCD's Lines/Catheters IV Catheter Type (from Nrs): Peripheral IV Assessment/Plan Chief Complaint/Hosp Course - E. coli ESBL UTI. Continue meropenem. - Nonobstructive multiple renal stones. Dr. Echeverria is following in urology consultation. - Abdominal pain, status post MRCP. Dr. Mao is following in gastroenterology consultation. - Right lateral chest pain. Will obtain rib series to rule out any rib fracture. - MARTHA on CKD. Continue to monitor BUN and creatinine. - Seizure disorder, continue Keppra. - Hypothyroidism, Synthroid adjusted to 225mcg. Continue Lovenox for deep venous thrombosis prophylaxis and Protonix for peptic ulcer disease prophylaxis. Further recommendations based on clinical course. Plan of care discussed with Dr. Mcginnis. Problems: Subjective 24 Hr Interval Summary Free Text/Dictation No acute events overnight patient looks comfortable, no nausea vomiting, patient remains afebrile. Exam/Review of Systems Vital Signs Vitals Vital Signs Date Time Temp Pulse Resp B/P Pulse Ox O2 Delivery O2 Flow Rate FiO2 01/28/17 07:42 98.1 76 16 114/55 97 01/26/17 20:00 Room Air Intake and Output 01/27/17 01/27/17 01/28/17 15:00 23:00 07:00 Intake Total 1450 ml 700 ml Balance 1450 ml 700 ml Exam Constitutional: alert, oriented Psych: no complaints Head: atraumatic, normocephalic Eyes: nl conjunctiva ENMT: nl external ears & nose Neck: non-tender, supple Respiratory: clear to auscultation, normal air movement Cardiovascular: nl pulses, regular rate and rhythm Gastrointestinal: non-tender, other (Right upper quadrant pain), soft Musculoskeletal: nl extremities to inspection Extremities: normal pulses Neurological: [employer] II-XII intact Skin: nl turgor Results Result Diagram: 01/28/17 04501/28/17 0450 Results 24 hrs Laboratory Tests Test 01/28/17 04:50 Anion Gap 15 Basophils # 0.0 Basophils % 0.7 Blood Urea Nitrogen 27 H Calcium Level 9.1 Carbon Dioxide Level 21 Chloride Level 112 H Creatinine 1.69 H Eosinophils # 0.4 Eosinophils % 7.1 H Glucose Level 90 Hematocrit 32.8 L Hemoglobin 10.3 L Lymphocytes # 1.8 Lymphocytes % 30.3 Mean Corpuscular Hemoglobin 29.1 Mean Corpuscular Hemoglobin Concent 31.4 L Mean Corpuscular Volume 92.7 Mean Platelet Volume 10.2 Monocytes # 0.7 Monocytes % 11.4 H Neutrophils # 3.0 Neutrophils % 50.3 Nucleated Red Blood Cells # 0.0 Nucleated Red Blood Cells % 0.0 Platelet Count 256 Potassium Level 4.2 Red Blood Count 3.54 L Red Cell Distribution Width 12.7 Sodium Level 144 White Blood Count 5.9 Medications Medications Current Medications Aspirin (Aspirin) 81 mg DAILY PO Last administered on 01/28/17 08:23; Admin Dose 81 MG; Start 01/24/17 at 09:00 Docusate Sodium (Colace) 100 mg BID PO Last administered on 01/28/17 08:23; Admin Dose 100 MG; Start 01/24/17 at 09:00 Magnesium Hydroxide (Milk Of Mag) 30 ml DAILY PRN PO CONSTIPATION; Start at 22:00 Bisacodyl (Dulcolax Supp) 10 mg DAILY PRN [place] CONSTIPATION; Start 01/23/17 at 22 :00 Cholecalciferol (Vitamin D) 3,000 unit DAILY PO Last administered on 01/28/17 08:23; Admin Dose 3,000 UNIT; Start 01/24/17 at 09:00 Levothyroxine Sodium (Synthroid) 225 mcg DAILY@06 PO Last administered on 05:13; Admin Dose 225 MCG; Start 01/24/17 at 06:00 Levetiracetam (Keppra) 750 mg BID PO Last administered on 01/28/17 08:23; Admin Dose 750 MG; Start 01/24/17 at 09:00 Acetaminophen 650 mg 650 mg Q4H PRN PO PAIN AND OR ELEVATED TEMP; Start at 22:00 Sodium Chloride (1/2 NS) 1,000 ml @ 60 mls/hr [id number] IV Last administered on 01/28/17 18:08; Admin Dose 60 MLS/HR; Start 01/23/17 at 22:00 Enoxaparin Sodium (Lovenox) 30 mg DAILY SC Last administered on 01/26/17 09:20 ; Admin Dose 30 MG; Start 01/24/17 at 09:00 Morphine Sulfate (morphine) 2 mg Q3H PRN IV PAIN; Start 01/23/17 at 22:00 Ondansetron HCl (Zofran Inj) 4 mg Q6H PRN IV NAUSEA AND/OR VOMITING Last administered on 01/24/17 14:15; Admin Dose 4 MG; Start 01/23/17 at 22:00 Pantoprazole 40 mg 40 mg DAILY@06 PO Last administered on 01/28/17 05:13; Admin Dose 40 MG; Start 01/24/17 at 06:00 Imipenem/ Cilastatin Sodium (Primaxin 500 Mg/ 100 ml (Pmx)) 100 ml @ 100 mls/ hr Q12H IVPB Last administered on 01/28/17 08:31; Admin Dose 100 MLS/HR; Start 01/23/17 at 22:30 Acetaminophen (Tylenol Tab) 650 mg Q4H PRN PO FOR MILD PAIN -03/11 Last administered on 01/25/17 05:59; Admin Dose 650 MG; Start 01/24/17 at 10:30 Ascorbic Acid (Vitamin C) 500 mg BID PO Last administered on 01/28/17 08:23; Admin Dose 500 MG; Start 01/24/17 at 21:00 Docusate Sodium (Colace) 100 mg BID PRN PO CONSTIPATION; Start 01/24/17 at 10: 30 Donepezil HCl (Aricept) 10 mg DAILY PO Last administered on 01/28/17 08:24; Admin Dose 10 MG; Start 01/24/17 at 10:30 Mineral Oil (Mineral Oil) 30 ml TID PO Last administered on 01/28/17 08:23; Admin Dose 30 ML; Start 01/25/17 at 09:00 NEFTALI KEN Jan 28, 2017 18:47
[2017-01-28 19:42] VITALS: BP 114/54; RESP 18
--- NOTE | 2017-01-28 20:04 | PN ---
DATE: 01/28/2017 SUBJECTIVE: Does not have any complaint. OBJECTIVE: VITAL SIGNS: Stable, 98.1, 76, 16, 114/55, saturation 97% on room air. ABDOMEN: Soft. Minimal tenderness, deep pressure on the left lower quadrant. LOWER EXTREMITIES: No calf tenderness. UPPER EXTREMITIES: Dressing, left hand was removed. The wound is granulating gradually. No sign of infection. Antibiotic ointment was applied and wrapped around. ASSESSMENT: A 66-year-old female who was admitted through the emergency room because of the low back pain and abdominal pain and was found to have urinary tract infection and getting antibiotic for treatment. Meanwhile, the patient complained of a problem in her left hand, dressing over the left hand which apparently had been applied in [facility]. Was removed, which was difficult, was adherent to the wound, so soaked and was opened. There was an avulsion of the skin from subcutaneous tissue, about 1.5 cm. The cover of skin was shrunken and dried up , so it was debrided yesterday, dressing applied and from then on, daily dressing should be applied with antibiotic ointment to keep the wound moist and wrap it with sterile dressing. When the patient goes to the [facility], this should be done as well. PLAN: Discharge planning per the PCP. From abdominal point of view, the patient doesn't have any complaint, and the tenderness and pain have resolved. Dictated By: GALINA ALLEN/LUIS Conf#: [id number] DID#: [id number] MTDD
[2017-01-29] MEDS: PANTOPRAZOLE (EC) 40 MG TAB PO SCH (05:40)
[2017-01-29] MEDS: LEVOTHYROXINE 75 MCG TAB PO SCH (05:40)
[2017-01-29 06:16] LABS: ADD SCAN DIFF NO
[2017-01-29 06:23] LABS: BASOPHILS % 0.5 % (0.0-2.0); EOSINOPHILS # 0.4 10^3/ul (0.0-0.5); EOSINOPHILS % 6.5 % (0.0-7.0); HEMATOCRIT 32.8 % (37.0-47.0); HEMOGLOBIN 10.2 g/dl (12.0-16.0); LYMPHOCYTES # 2.1 10^3/ul (0.8-2.9); LYMPHOCYTES % 34.5 % (15.0-51.0); MEAN CORPUSCULAR HEMOGLOBIN 28.7 pg (29.0-33.0); MEAN CORPUSCULAR HGB CONC 31.1 g/dl (32.0-37.0); MEAN CORPUSCULAR VOLUME 92.4 fl (82.0-101.0); MEAN PLATELET VOLUME 10.4 fl (7.4-10.4); MONOCYTE # 0.7 10^3/ul (0.3-0.9); MONOCYTES % 10.8 % (0.0-11.0); NEUTROPHIL # 2.9 10^3/ul (1.6-7.5); NEUTROPHILS % 47.5 % (39.0-77.0); PLATELET COUNT 252 10^3/UL (140-415); RED BLOOD COUNT 3.55 10^6/ul (4.20-5.40); WHITE BLOOD COUNT 6.1 10^3/ul (4.8-10.8)
[2017-01-29 06:33] LABS: POTASSIUM 4.6 mmol/L (3.5-5.1)
[2017-01-29 06:35] LABS: CREATININE 1.69 mg/dl (0.44-1.00)
[2017-01-29 06:36] LABS: CALCIUM 9.1 mg/dl (8.4-10.2)
[2017-01-29 08:11] VITALS: BP 112/54; RESP 16
[2017-01-29] MEDS: DOCUSATE SODIUM 100 MG CAP PO SCH ×2 (08:58→20:09)
[2017-01-29] MEDS: LEVETIRACETAM 750 MG TAB PO SCH ×2 (08:58→20:09)
[2017-01-29] MEDS: ASPIRIN 81 MG TAB PO SCH (08:58)
[2017-01-29] MEDS: ASCORBIC ACID 500 MG TAB PO SCH ×2 (08:58→20:09)
[2017-01-29] MEDS: DONEPEZIL 10 MG TAB PO SCH (08:58)
[2017-01-29] MEDS: CHOLECALCIFEROL 1,000 UNIT TAB PO SCH (08:58)
[2017-01-29] MEDS: MINERAL OIL 30ML CUP PO SCH ×3 (09:00→20:09)
[2017-01-29] MEDS: ENOXAPARIN 30 MG/0.3 ML SYG SC SCH (09:00)
[2017-01-29] MEDS: IMIPENEM-CILAST 500MG IV (PMX) 100 ML IVPB SCH ×2 (09:02→21:31)
[2017-01-29] MEDS: SOD CHLORIDE 0.45% 1,000 ML IV SCH ×2 (09:07→11:20)
--- NOTE | 2017-01-29 16:29 | PN ---
Date/Time of Note Date/Time of Note DATE: 01/29/17 TIME: 16:27 Assessment/Plan VTE Prophylaxis VTE Prophylaxis Intervention: SCD's Lines/Catheters IV Catheter Type (from Nrs): Peripheral IV Assessment/Plan Chief Complaint/Hosp Course - E. coli ESBL UTI. Continue meropenem. - Nonobstructive multiple renal stones. Dr. Echeverria is following in urology consultation. - Abdominal pain, status post MRCP. Dr. Mao is following in gastroenterology consultation. - Right lateral chest pain. No rib fracture per XR rib series. - MARTHA on CKD. Continue to monitor BUN and creatinine. - Seizure disorder, continue Keppra. - Hypothyroidism, Synthroid adjusted to 225mcg. Anticipate discharge to longterm facility upon completion of antibiotics , possibly tomorrow. Continue Lovenox for deep venous thrombosis prophylaxis and Protonix for peptic ulcer disease prophylaxis. Further recommendations based on clinical course. Plan of care discussed with Dr. Mcginnis. Problems: Subjective 24 Hr Interval Summary Free Text/Dictation Patient pulled out IV, denies any abdominal pain, patient needs IV access to complete course of meropenem for ESBL UTI, discussed with RN. Exam/Review of Systems Vital Signs Vitals Vital Signs Date Time Temp Pulse Resp B/P Pulse Ox O2 Delivery O2 Flow Rate FiO2 01/29/17 08:11 98.0 70 16 112/54 99 01/26/17 20:00 Room Air Intake and Output 01/28/17 01/28/17 01/29/17 15:00 23:00 07:00 Intake Total 1900 ml 780 ml Balance 1900 ml 780 ml Exam Constitutional: alert, oriented Psych: no complaints Head: atraumatic, normocephalic Eyes: nl conjunctiva ENMT: nl external ears & nose Neck: non-tender, supple Respiratory: clear to auscultation, normal air movement Cardiovascular: nl pulses, regular rate and rhythm Gastrointestinal: non-tender, other (Right upper quadrant pain), soft Musculoskeletal: nl extremities to inspection Extremities: normal pulses Neurological: PSYCHIATRIC REGISTERED NURSE II-XII intact Skin: nl turgor Results Result Diagram: 01/29/17 0531 01/29/17 0534 Results 24 hrs Laboratory Tests Test 01/29/17 05:31 01/29/17 05:34 Basophils # 0.0 Basophils % 0.5 Eosinophils # 0.4 Eosinophils % 6.5 Hematocrit 32.8 L Hemoglobin 10.2 L Lymphocytes # 2.1 Lymphocytes % 34.5 Mean Corpuscular Hemoglobin 28.7 L Mean Corpuscular Hemoglobin Concent 31.1 L Mean Corpuscular Volume 92.4 Mean Platelet Volume 10.4 Monocytes # 0.7 Monocytes % 10.8 Neutrophils # 2.9 Neutrophils % 47.5 Nucleated Red Blood Cells # 0.0 Nucleated Red Blood Cells % 0.0 Platelet Count 252 Red Blood Count 3.55 L Red Cell Distribution Width 13.0 White Blood Count 6.1 Anion Gap 16 Blood Urea Nitrogen 29 H Calcium Level 9.1 Carbon Dioxide Level 22 Chloride Level 112 H Creatinine 1.69 H Glucose Level 92 Potassium Level 4.6 Sodium Level 145 H Medications Medications Current Medications Aspirin (Aspirin) 81 mg DAILY PO Last administered on 01/29/17 08:58; Admin Dose 81 MG; Start 01/24/17 at 09:00 Docusate Sodium (Colace) 100 mg BID PO Last administered on 01/29/17 08:58; Admin Dose 100 MG; Start 01/24/17 at 09:00 Magnesium Hydroxide (Milk Of Mag) 30 ml DAILY PRN PO CONSTIPATION; Start at 22:00 Bisacodyl (Dulcolax Supp) 10 mg DAILY PRN OR CONSTIPATION; Start 01/23/17 at 22 :00 Cholecalciferol (Vitamin D) 3,000 unit DAILY PO Last administered on 01/29/17 08:58; Admin Dose 3,000 UNIT; Start 01/24/17 at 09:00 Levothyroxine Sodium (Synthroid) 225 mcg DAILY@06 PO Last administered on 05:40; Admin Dose 225 MCG; Start 01/24/17 at 06:00 Levetiracetam (Keppra) 750 mg BID PO Last administered on 01/29/17 08:58; Admin Dose 750 MG; Start 01/24/17 at 09:00 Acetaminophen 650 mg 650 mg Q4H PRN PO PAIN AND OR ELEVATED TEMP; Start at 22:00 Sodium Chloride (1/2 NS) 1,000 ml @ 60 mls/hr [id number] IV Last administered on 01/29/17 09:07; Admin Dose 60 MLS/HR; Start 01/23/17 at 22:00 Enoxaparin Sodium (Lovenox) 30 mg DAILY SC Last administered on 01/26/17 09:20 ; Admin Dose 30 MG; Start 01/24/17 at 09:00 Morphine Sulfate (morphine) 2 mg Q3H PRN IV PAIN; Start 01/23/17 at 22:00 Ondansetron HCl (Zofran Inj) 4 mg Q6H PRN IV NAUSEA AND/OR VOMITING Last administered on 01/24/17 14:15; Admin Dose 4 MG; Start 01/23/17 at 22:00 Pantoprazole 40 mg 40 mg DAILY@06 PO Last administered on 01/29/17 05:40; Admin Dose 40 MG; Start 01/24/17 at 06:00 Imipenem/ Cilastatin Sodium (Primaxin 500 Mg/ 100 ml (Pmx)) 100 ml @ 100 mls/ hr Q12H IVPB Last administered on 01/29/17 09:02; Admin Dose 100 MLS/HR; Start 01/23/17 at 22:30 Acetaminophen (Tylenol Tab) 650 mg Q4H PRN PO FOR MILD PAIN Last administered on 01/25/17 05:59; Admin Dose 650 MG; Start 01/24/17 at 10:30 Ascorbic Acid (Vitamin C) 500 mg BID PO Last administered on 01/29/17 08:58; Admin Dose 500 MG; Start 01/24/17 at 21:00 Docusate Sodium (Colace) 100 mg BID PRN PO CONSTIPATION; Start 01/24/17 at 10: 30 Donepezil HCl (Aricept) 10 mg DAILY PO Last administered on 01/29/17 08:58; Admin Dose 10 MG; Start 01/24/17 at 10:30 Mineral Oil (Mineral Oil) 30 ml TID PO Last administered on 01/28/17 08:23; Admin Dose 30 ML; Start 01/25/17 at 09:00 NEFTALI KEN Jan 29, 2017 16:29
--- NOTE | 2017-01-29 17:34 | PN ---
DATE: SUBJECTIVE: No new complaints. She has pulled out her IV that was established for antibiotic treat ment of the urinary tract infection. VITAL SIGNS: 98 temperature, 70 heart rate, 16 respiratory rate, 112/54 blood pressure, 99% saturat ion on room air. LABS: WBC 6100, hemoglobin 10.2, hematocrit 32.8. Differential is 47% neutrophils. ABDOMEN: Soft. EXTREMITIES: Lower extremity, no calf tenderness. No pitting edema. Left upper extremity dressing was changed by the nurse, who reported the wound is clean. Granulation tissue is forming. Dressin g was applied with antibiotic ointment. EXTREMITIES: Patient moves all fingers of the left hand. ASSESSMENT: A 66-year-old female who presented with lower abdominal pain, left side mainly, urinary tract infection, and also lower back pain, and constipation, and status post laceration of the left hand with avulsion of the skin on the left interdigit area between 1 and 2 fingers. Patient is und er treatment with antibiotic imipenem for urinary tract infection, and also constipation to some ext ent has been resolved. Low back pain is better, and abdominal pain is better, and dressing is appli ed over the left hand wound. PLAN: Continue current treatment until the course of the antibiotics for treatment of the urinary t ract infection is finished, and patient can be discharged whenever it is okay with the infectious di sease. Left hand wound to be taken care of in long-term with application of antibiotic ointment and dressing once or twice a day. Dictated By: GALINA ALLEN/LUIS Conf#: [id number] DID#: [id number]
[2017-01-29 21:21] VITALS: BP 92/50; RESP 16
[2017-01-30] MEDS: SOD CHLORIDE 0.45% 1,000 ML IV SCH ×2 (03:08→20:40)
[2017-01-30] MEDS: PANTOPRAZOLE (EC) 40 MG TAB PO SCH (05:49)
[2017-01-30] MEDS: LEVOTHYROXINE 75 MCG TAB PO SCH (05:50)
[2017-01-30 07:55] VITALS: BP 106/56; RESP 18
[2017-01-30] MEDS: ASPIRIN 81 MG TAB PO SCH (08:46)
[2017-01-30] MEDS: MINERAL OIL 30ML CUP PO SCH ×3 (08:46→20:39)
[2017-01-30] MEDS: CHOLECALCIFEROL 1,000 UNIT TAB PO SCH (08:46)
[2017-01-30] MEDS: LEVETIRACETAM 750 MG TAB PO SCH ×2 (08:46→20:38)
[2017-01-30] MEDS: DOCUSATE SODIUM 100 MG CAP PO SCH ×2 (08:46→20:38)
[2017-01-30] MEDS: ASCORBIC ACID 500 MG TAB PO SCH ×2 (08:46→20:42)
[2017-01-30] MEDS: DONEPEZIL 10 MG TAB PO SCH (08:46)
[2017-01-30] MEDS: IMIPENEM-CILAST 500MG IV (PMX) 100 ML IVPB SCH (08:48)
[2017-01-30] MEDS: ENOXAPARIN 30 MG/0.3 ML SYG SC SCH (09:55)
--- NOTE | 2017-01-30 13:13 | PN ---
DATE: 01/30/2017 SUBJECTIVE: Does not have any complaints, sitting in the chair reading ____ lunch. OBJECTIVE VITAL SIGNS: Stable, 97.9, 75, 18, 106/57 with saturation 97% on room air. GENERAL: No acute distress. Alert. Left hand dressing is intact. The wound was inspected. It is healing gradually. Granulation scar is forming. No epithelialization yet in the interdigitality of the left hand which was avulsed at the skilled nursing. ASSESSMENT: The patient is a 66-year-old female who was admitted because of abdominal pain, low back pain, evidence of infection, E. coli with ESBL. The patient is on antibiotic, meropenem, and the course, was supposed to be finished today by an IV injection, although the patient is pulling out her IVs fairly frequently. PLAN: In any case, when the patient's course of antibiotics is finished and patient from surgical point of view can be discharged to the skilled nursing and daily dressing should be changed for the left hand wound. They should apply antibiotic ointment on the wound and apply sterile dressing daily. for follow up pt. can be sent to my office with appointment, call [phone]. Dictated By: GALINA ALLEN/LUIS Conf#: [id number] DID#: [id number] SHARAD
--- NOTE | 2017-01-30 16:41 | DS ---
DATE OF ADMISSION: 01/23/2017 DATE OF DISCHARGE: 01/30/2017 FINAL DIAGNOSES: 1. Escherichia coli extended-spectrum beta-lactamase urinary tract infection status post treatment, nonobstructive multiple renal stones. 2. Abdominal pain status post MRCP. 3. Right lateral chest pain, resolved. 4. Acute kidney injury on chronic kidney disease. 5. Seizure disorder. 6. Hypothyroidism. BRIEF HISTORY: The patient is a 66-year-old female who was admitted to [facility] facility for complaining of the lower back pain and right upper quadrant abdominal pain. In the emergency room, patient underwent a CT of the abdomen and pelvis which revealed stable bilateral nonobstructing arnold al calculi and patient with renal atrophy. Patient's urinalysis was indicative of urinary tract inf ection. The patient was started on broad spectrum antibiotics and admitted for further evaluation a nd management. HOSPITAL COURSE: The patient's urine culture came back with E. coli ESBL. The patient was started on meropenem and completed the treatment. The patient was evaluated by Dr. Echeverria in urology consu ltation with plan for possible urethroscopy and laser lithotripsy later on different admission. The patient was also evaluated by Dr. Contreras in gastroenterology consultation and patient underwent MRC P with no evidence of choledocholithiasis. The patient also underwent a lumbar spine MRI. The danyelle ent's pain was most likely due to radiculopathy. Patient was given pain medication and completed tr eatment with antibiotics. The patient was also started on bowel regimen for constipation. The danyelle ent is continued on Keppra for seizure disorder. The patient also underwent a rib series to rule ou t any rib fracture that was negative. Overall, patient's condition improved and patient denies any dysuria, denies any nausea, vomiting, constipation, pain is resolved and the patient is discharged t o [facility] facility. CONDITION ON DISCHARGE: Hemodynamically stable. ACTIVITY: As patient tolerates. DIET: Regular diet. DISCHARGE MEDICATIONS: 1. Tylenol q.4h. p.r.n. for fever, pain. 2. Vitamin C. 3. Baby aspirin. 4. Dulcolax daily p.r.n. 5. Cholecalciferol 3000 units p.o. daily. 6. Colace. 7. Aricept. 8. Keppra 750 mg p.o. b.i.d. 9. Synthroid 225 mcg p.o. daily. The patient's TSH was 0.031. So, the patient's Synthroid dose wa s decreased to 225 mcg p.o. daily, we will continue that dose. We will check TSH in 3 months. 10. Continue with medication reconciliation Milk of magnesia p.r.n. 11. Dexilant 60 mg p.o. daily. 12. Cranberry extract. Interdisciplinary plan of care was established for this patient. Plan of care was discussed with Dr Mag Ferrara. Dictated By: NEFTALI KEN ART HISTORY INSTRUCTOR for HEIKE FERRARA MD SR/NTS Conf#: [id number] DID#: [id number]
[2017-01-30 20:17] VITALS: BP 124/63; RESP 18
== END 2017-01-30 21:15 | DRG 690 ==
LOC: E/R 14:24 → MS2 19:36
PROVIDERS: ADMIT Internal Medicine; ATTEND Internal Medicine
DX: N30.00 Acute cystitis without hematuria (principal); N17.9 Acute kidney failure, unspecified; F03.90 Unspecified dementia, unspecified severity, without behavioral disturbance, psychotic disturbance, mood disturbance, and anxiety; N20.0 Calculus of kidney; B96.20 Unspecified Escherichia coli [E. coli] as the cause of diseases classified elsewhere; G40.909 Epilepsy, unspecified, not intractable, without status epilepticus; N18.3 Chronic kidney disease, stage 3 (moderate); E03.9 Hypothyroidism, unspecified; Z16.12 Extended spectrum beta lactamase (ESBL) resistance; S61.402A Unspecified open wound of left hand, initial encounter; S61.412A Laceration without foreign body of left hand, initial encounter; K59.00 Constipation, unspecified; R07.89 Other chest pain; R10.9 Unspecified abdominal pain; Z79.82 Long term (current) use of aspirin; Z86.73 Personal history of transient ischemic attack (TIA), and cerebral infarction without residual deficits; X58.XXXA Exposure to other specified factors, initial encounter
CPT/HCPCS: 36415; 71110; 72148; 74000; 74176; 74181; 80048; 80053; 80076; 81001; 81003; 82150; 82962; 83690; 84443; 85025; 87040; 87086; 96374; 96375; 97161; J0696; J0743; J1650; J2270; J2405; J7040